=== PATIENT | male | born 1975 | race Hispanic/Latino ===

== ENCOUNTER 2017-03-10 21:02 | Emergency (ER) | payer SELFPAY | END 2017-03-10 21:35 | disposition left against medical advice (07) | LOC: ED 21:02 | DX: R10.9 Unspecified abdominal pain (principal); Z53.21 Procedure and treatment not carried out due to patient leaving prior to being seen by health care provider ==

== ENCOUNTER 2017-03-11 04:13 | Emergency (ER) | payer SELFPAY ==
[2017-03-11 05:25] LABS: Basophils % (Auto) 0.9 % (0.0-1.8); Eosinophils % (Auto) 0.9 % (0.0-4.3); Hematocrit 30.5 % (35.5-45.6); Hemoglobin 9.8 gm/dl (11.8-15.2); Mean Corpuscular HGB Conc 32 % (32-34); Mean Corpuscular Volume 80 fl (84-94); Platelet Count 571 K/mm3 (140-440); Red Blood Count 3.82 M/mm3 (3.65-5.03); Red Cell Distribution Width 15.6 % (13.2-15.2)
[2017-03-11 05:32] LABS: Mean Corpuscular Hemoglobin 26 pg (28-32)
[2017-03-11 05:48] LABS: Alanine Aminotransferase 14 units/L (7-56); Albumin/Globulin Ratio 1.3 %; Alkaline Phosphatase 63 units/L (35-129); Anion Gap 18 mmol/L; Blood Urea Nitrogen 6 mg/dL (9-20); Calcium 9.6 mg/dL (8.4-10.2); Carbon Dioxide 24 mmol/L (22-30); Chloride 99.8 mmol/L (98-107); Glucose 165 mg/dL (75-100); Lipase 25 units/L (13-60); Potassium 4.3 mmol/L (3.6-5.0); Sodium 137 mmol/L (137-145); Total Protein 7.1 g/dL (6.3-8.2)
[2017-03-11 06:00] LABS: Bacteria,Urine 1+ /HPF (Negative); Bilirubin,Urine NEG (Negative); Blood,Urine NEG (Negative); Ketones,Urine NEG (Negative); Leukocyte Esterase,Urine NEG (Negative); Mucus,Urine 3+ /HPF; Nitrite,Urine NEG (Negative); Protein,Urine <15 mg/dL mg/dL (Negative); RBC,Urine < 1.0 /HPF (0.0-6.0); Urobilinogen,Urine < 2.0 mg/dL (<2.0)
[2017-03-11 14:12] VITALS: BP 115/63
[2017-03-11] MEDS ORDERED: TORADOL IM ONE (15:30)
[2017-03-11] MEDS ORDERED: ZOFRAN ODT PO ONE (15:30)
--- NOTE | 2017-03-11 15:33 | Emergency Department Report ---
HPI - General Chief Complaint: Abdominal Pain Time Seen by Provider: 03/11/17 13:39 - HPI HPI: The patient is a 42-year-old male whom presents for evaluation of abdominal pain. The patient reports left upper quadrant abdominal pain for the past 2 days, constant since onset, cramping in quality, and associated with nausea and nonbilious, nonbloody emesis. He states he has not "thrown up" in the past 4 hours. The patient denies fever, chills, night sweats, chest pain, dyspnea, trauma to the abdomen or left flank, diarrhea, blood in the stool, dark tarry stool, dysuria, hematuria, flank pain, genital discharge, inability to pass flatus or defecate. ED Past Medical Hx - Past Medical History Previous Medical History?: Yes Hx Diabetes: Yes Additional medical history: Stomach ulcer - Surgical History Past Surgical History?: No - Social History Smoking Status: Current Every Day Smoker - Medications Home Medications: Home Medications Medication Instructions Recorded Confirmed Last Taken Type Famotidine [Pepcid] 20 mg PO BID #60 tablet 05/11/16 Unknown Rx Omeprazole Magnesium [PriLOSEC Otc] 20 mg PO QDAY #14 tablet. 03/11/17 Unknown Rx traMADol [Ultram 50 MG tab] 50 mg PO Q6HR PRN #14 tablet 03/11/17 Unknown Rx ED Review of Systems ROS: Stated complaint: ABDOMINAL PAIN Other details as noted in HPI Constitutional: denies: fever ENT: denies: throat or neck pain Respiratory: denies: cough, shortness of breath Cardiovascular: denies: chest pain Endocrine: denies unexplained weight loss or gain Gastrointestinal: reports abdominal pain, nausea Genitourinary: denies: dysuria Musculoskeletal: denies: leg swelling Skin: denies: rash Neurological: denies: headache Hematological/Lymphatic: denies: easy bleeding or easy bruising Psych: denies sadness or hopelessness Physical Exam - Physical Exam Vital Signs: Vital Signs 03/11/17 03/11/17 03/11/17 04:29 07:39 14:10 Temperature 99.0 F 98.9 F 99.6 F Pulse Rate 83 84 75 Respiratory 20 18 Rate Blood Pressure 116/72 Blood Pressure 129/81 115/63 [Left] O2 Sat by Pulse 100 100 Oximetry 03/11/17 14:12 Temperature Pulse Rate Respiratory 18 Rate Blood Pressure Blood Pressure [Left] O2 Sat by Pulse 99 Oximetry Physical Exam: General: well-nourished, well-developed, no acute distress Head: Normocephalic, atraumatic Eyes: normal sclera ENT: Mucous membranes are pink and moist Neck: trachea midline, neck supple, No neck stiffness, no cervical adenopathy Respiratory: Breath sounds equal bilaterally, no wheezing, rales, or rhonchi Cardio: S1 and S2 present, no murmurs, rubs, gallops, capillary refill is brisk Abdomen: Normoactive bowel sounds, soft abdomen, left upper quadrant tenderness to palpation present, no rigidity, no guarding or rebound tenderness Musc: No pitting edema Skin: No rash Neuro: no facial drooping, normal speech Psych: Normal affect ED Course Vital Signs 03/11/17 03/11/17 03/11/17 04:29 07:39 14:10 Temperature 99.0 F 98.9 F 99.6 F Pulse Rate 83 84 75 Respiratory 20 18 Rate Blood Pressure 116/72 Blood Pressure 129/81 115/63 [Left] O2 Sat by Pulse 100 100 Oximetry 03/11/17 14:12 Temperature Pulse Rate Respiratory 18 Rate Blood Pressure Blood Pressure [Left] O2 Sat by Pulse 99 Oximetry ED Medical Decision Making - Lab Data Result diagrams: 03/11/17 04:55 03/11/17 04:55 - Medical Decision Making The patient was seen and examined by myself. The patient is placed on a box office clerk and continuous pulse ox. On initial evaluation, the patient was found to be in no distress. Evaluation orders are placed. The patient is given IM dose of Toradol for his pain and a tablet of Zofran for his nausea. Lab results were non-concerning including WBC, hemoglobin, hematocrit, electrolytes, renal function, LFTs, lipase, and urinalysis. The patient was reevaluated and reported that their symptoms were markedly improved. The patient is stable for discharge with outpatient follow-up. The patient is given follow-up and return instructions. The patient expressed understanding and agreed with the plan. The patient is discharged in stable condition. Critical care attestation.: If time is entered above; I have spent that time in minutes in the direct care of this critically ill patient, excluding procedure time. ED Disposition Clinical Impression: Acute abdominal pain in left upper quadrant Disposition: DC-01 TO HOME OR SELFCARE Is pt being admited?: No Does the pt Need Aspirin: No Condition: Stable Instructions: Gastritis (ED), Diet for Ulcers and Gastritis (ED), Abdominal Pain (ED) Prescriptions: Omeprazole Magnesium [PriLOSEC Otc] 20 mg PO QDAY #14 tablet. traMADol [Ultram 50 MG tab] 50 mg PO Q6HR PRN #14 tablet PRN Reason: Pain Referrals: PRIMARY CARE, [Primary Care Provider] - 3-5 Days Time of Disposition: 15:30
== END 2017-03-11 16:15 | disposition home or self-care (01) ==
LOC: ED 04:13
DX: R10.12 Left upper quadrant pain (principal); E11.9 Type 2 diabetes mellitus without complications
CPT/HCPCS: 36415; 80053; 81001; 83690; 85025; 96372; 99284; J1885; Q0162

== ENCOUNTER 2017-07-07 15:36 | Emergency (ER) | payer SELFPAY | END 2017-07-07 15:37 | disposition left against medical advice (07) | LOC: ED 15:36 | DX: R11.10 Vomiting, unspecified (principal); Z53.21 Procedure and treatment not carried out due to patient leaving prior to being seen by health care provider ==

== ENCOUNTER 2017-09-03 07:37 | Inpatient (IN) | payer SELFPAY ==
[2017-09-03] MEDS ORDERED: NACL 0.9% 1000 ML 1,000 ML IV ONE (07:42)
[2017-09-03 08:16] LABS: Basophils % (Auto) 0.8 % (0.0-1.8); Eosinophils % (Auto) 0.3 % (0.0-4.3); Hematocrit 37.8 % (35.5-45.6); Hemoglobin 11.6 gm/dl (11.8-15.2); Mean Corpuscular HGB Conc 31 % (32-34); Platelet Count 503 K/mm3 (140-440); Red Blood Count 5.65 M/mm3 (3.65-5.03); Red Cell Distribution Width 19.1 % (13.2-15.2); White Blood Count 16.6 K/mm3 (4.5-11.0)
[2017-09-03 08:21] LABS: Mean Corpuscular Hemoglobin 21 pg (28-32); Mean Corpuscular Volume 67 fl (84-94)
[2017-09-03 08:26] LABS: Albumin 4.2 g/dL (3.9-5); Albumin/Globulin Ratio 1.3 %; Alkaline Phosphatase 72 units/L (35-129); BUN/Creatinine Ratio 23; Blood Urea Nitrogen 16 mg/dL (9-20); Calcium 10.9 mg/dL (8.4-10.2); Carbon Dioxide 29 mmol/L (22-30); Chloride 99.1 mmol/L (98-107); Glucose 169 mg/dL (75-100); INR 0.92 (0.87-1.13); Lipase 29 units/L (13-60); Sodium 142 mmol/L (137-145); Total Protein 7.5 g/dL (6.3-8.2)
[2017-09-03 09:53] LABS: Alanine Aminotransferase 20 units/L (7-56)
[2017-09-03 09:54] LABS: Anion Gap 18 mmol/L; Potassium 4.5 mmol/L (3.6-5.0)
[2017-09-03] MEDS ORDERED: ZOFRAN IV ONE (09:54)
--- NOTE | 2017-09-03 10:25 | Emergency Department Report ---
HPI - General Chief Complaint: GI Bleed Time Seen by Provider: 09/03/17 09:51 - HPI HPI: The patient is a 42-year-old male whom presents for evaluation of abdominal pain and vomiting. The patient reports abdominal pain and vomiting of coffee ground emesis since 2 AM, aproximately 6 hours prior to my evaluation. He states that his abdominal pain has been 10/10 in severity, cramping and burning in quality, exacerbated with retching, and constant since onset. The patient denies fever, chills, night sweats, diarrhea, blood in the stool, dark tarry stool, dysuria, hematuria, flank pain, genital discharge, inability to pass flatus. ED Past Medical Hx - Past Medical History Previous Medical History?: Yes Hx Diabetes: Yes Additional medical history: Stomach ulcer - Surgical History Past Surgical History?: No - Social History Smoking Status: Current Every Day Smoker Substance Use Type: None - Medications Home Medications: Home Medications Medication Instructions Recorded Confirmed Last Taken Type Famotidine [Pepcid] 20 mg PO BID #60 tablet 05/11/16 Unknown Rx Omeprazole Magnesium [PriLOSEC Otc] 20 mg PO QDAY #14 tablet. 03/11/17 Unknown Rx traMADol [Ultram 50 MG tab] 50 mg PO Q6HR PRN #14 tablet 03/11/17 Unknown Rx ED Review of Systems ROS: Stated complaint: VOMITING BLOOD Other details as noted in HPI Constitutional: denies: fever ENT: denies: throat or neck pain Respiratory: denies: cough, shortness of breath Cardiovascular: denies: chest pain Endocrine: denies unexplained weight loss or gain Gastrointestinal: reports abdominal pain, nausea, vomiting Genitourinary: denies: dysuria Musculoskeletal: denies: leg swelling Skin: denies: rash Neurological: denies: headache Hematological/Lymphatic: denies: easy bleeding or easy bruising Psych: denies sadness or hopelessness Physical Exam - Physical Exam Vital Signs: Vital Signs 09/03/17 09/03/17 08:42 08:48 Temperature 98.6 F Blood Pressure 119/85 Physical Exam: General: well-nourished, well-developed, no acute distress Head: Normocephalic, atraumatic Eyes: normal sclera ENT: Mucous membranes are pale and dry Neck: No neck stiffness, no cervical adenopathy Respiratory: Breath sounds equal bilaterally, no wheezing, rales, or rhonchi Cardio: S1 and S2 present, no murmurs, rubs, gallops, capillary refill is delayed Abdomen: Normoactive bowel sounds, soft abdomen, no rigidity, no guarding or rebound tenderness Chest WALL/Back: No tenderness to palpation of the chest wall, no CVA tenderness with percussion Musc: No pitting edema Skin: No rash Neuro: no facial drooping, normal speech Psych: Normal affect ED Course Vital Signs 09/03/17 09/03/17 08:42 08:48 Temperature 98.6 F Blood Pressure 119/85 ED Medical Decision Making - Lab Data Result diagrams: 09/03/17 07:49 09/03/17 07:49 - Medical Decision Making The patient was seen and examined by myself. The patient is placed on a domestic maid and continuous pulse ox. On initial evaluation, the patient was found to be in no distress. The patient dyspnea is one episode of coffee- ground emesis in the emergency department. Evaluation orders were placed. The patient is given multiple doses of IV pain medicine. The patient is given IV Zofran for for treatment of nausea. The patient is given IV Protonix for txt of upper gi bleed. Lab results revealed leukocytosis, WBC 16, and otherwise labs are grossly not concerning including normal hemoglobin, hematocrit, platelets, and coags. CT scan abdomen and pelvis reveals findings consistent with likely duodenitis. The patient is given IV Levaquin and Flagyl for treatment of duodenitis. The on-call hospitalist service was contacted. They agreed to admit the patient for further treatment and close monitoring. The ED admit order was placed. The patient was admitted in guarded condition. Critical care attestation.: If time is entered above; I have spent that time in minutes in the direct care of this critically ill patient, excluding procedure time. ED Disposition Clinical Impression: Duodenitis with bleeding, Acute epigastric pain, Coffee ground emesis, Dehydration Disposition: OP ADMIT IP TO THIS HOSP Is pt being admited?: Yes Does the pt Need Aspirin: Yes Condition: Serious Referrals: PRIMARY CARE, [Primary Care Provider] - 3-5 Days Forms: Accompanied Note Time of Disposition: 15:37
[2017-09-03] MEDS ORDERED: PROTONIX IV ONE (11:00)
[2017-09-03] MEDS ORDERED: MORPHINE IV ONE ×3 (11:12→15:36)
--- NOTE | 2017-09-03 14:07 | Cat Scan Report ---
CT ABDOMEN PELVIS WITH CONTRAST: HISTORY: abdominal pain. COMPARISON: none. TECHNIQUE: Helical CT in 1.25mm intervals following IV contrast. Sagittal and coronal reconstructions. FINDINGS: Lung bases: normal. Liver: normal. Biliary system: normal. Pancreas: normal. Spleen: normal. Kidneys/ureters/bladder: normal. Adrenal glands: normal. Aorta: normal. Intestines: The stomach is moderately distended with fluid. No gastric wall thickening. There is however moderate circumferential thickening and irregularity of the descending duodenum. The remaining small bowel loops and colon are within normal limits. Appendix: Not confidently identified, correlate with surgical history. Pelvic viscera: normal. Musculoskeletal: normal. IMPRESSION: Abnormal proximal duodenum. This probably represents duodenitis or peptic disease. A neoplastic process is thought less likely but cannot be entirely excluded. Consider consultation with gastroenterology
[2017-09-03] MEDS ORDERED: LEVAQUIN 500MG/100ML 500 MG/100 ML BAG IV ONE (15:36)
[2017-09-03] MEDS ORDERED: PROTONIX 80 MG in NACL 0.9% 100 ML IV SCH ×2 (16:00→23:00)
[2017-09-03] MEDS ORDERED: FLAGYL 500 MG/100 ML 500 MG/100 ML BAG IV SCH (16:00)
[2017-09-03] MEDS ORDERED: MILK OF MAGNESIA PO PRN (22:49)
[2017-09-03] MEDS ORDERED: TYLENOL PO PRN (22:49)
[2017-09-03] MEDS ORDERED: DULCOLAX PR PRN (22:49)
[2017-09-03] MEDS ORDERED: MORPHINE IV PRN (22:49)
[2017-09-03] MEDS ORDERED: ZOFRAN IV PRN (22:49)
--- NOTE | 2017-09-03 22:49 | History and Physical Report ---
History of Present Illness Date of examination: 09/03/17 Date of admission: 09/03/17 15:38 Chief complaint: CC Coffee Ground emesis since 2am History of present illness: MANDEEP The patient is a 42-year-old male whom presents for evaluation of abdominal pain and vomiting. The patient reports abdominal pain and vomiting of coffee ground emesis since 2 AM. He states that his abdominal pain has been 10/10 in severity, cramping and burning in quality, exacerbated with retching, and constant since onset. The patient denies fever, chills, night sweats, diarrhea, blood in the stool, dark tarry stool, dysuria, hematuria, flank pain, genital discharge, inability to pass flatus. Past Medical History Previous Medical History?: Yes Hx Diabetes: Yes Additional medical history: Stomach ulcer Surgical History Past Surgical History?: No Social History Smoking Status: Current Every Day Smoker Substance Use Type: None -Medications Home Medications: Home Medications Medication Instructions Recorded Confirmed Last Taken Type Famotidine [Pepcid] 20 mg PO BID #60 tablet 05/11/16 Unknown Rx Omeprazole Magnesium [PriLOSEC Otc] 20 mg PO QDAY #14 tablet. 03/11/17 Unknown Rx traMADol [Ultram 50 MG tab] 50 mg PO Q6HR PRN #14 tablet 03/11/17 Unknown Rx Review of Systems Stated complaint: VOMITING BLOOD Other details as noted in HPI Constitutional: denies: fever ENT: denies: throat or neck pain Respiratory: denies: cough, shortness of breath Cardiovascular: denies: chest pain Endocrine: denies unexplained weight loss or gain Gastrointestinal: reports abdominal pain, nausea, vomiting Genitourinary: denies: dysuria Musculoskeletal: denies: leg swelling Skin: denies: rash Neurological: denies: headache Hematological/Lymphatic: denies: easy bleeding or easy bruising Psych: denies sadness or hopelessness Medications and Allergies Allergies Allergy/AdvReac Type Severity Reaction Status Date / Time No Known Allergies Allergy Unverified 05/11/16 05:47 Home Medications Medication Instructions Recorded Confirmed Last Taken Type No Known Home Medications [No 09/03/17 09/03/17 Unknown History Reported Home Medications] Active Meds: Active Medications Metronidazole (Flagyl 500 Mg/100 Ml) 500 mg in 100 mls @ 200 mls/hr IV ONCE CULLEN Last Admin: 09/03/17 18:03 Dose: 200 mls/hr Pantoprazole Sodium 80 mg/ (Sodium Chloride) 100 mls @ 10 mls/hr IV DIRECT CULLEN PRN Reason: 8 MG/HR Exam - Constitutional Vitals: Temp Pulse Resp BP Pulse Ox 99.1 F 119 H 16 117/79 95 09/03/17 19:43 09/03/17 19:43 09/03/17 19:43 09/03/17 19:43 09/03/17 19:43 General appearance: Present: no acute distress, well-nourished - EENT Eyes: Present: PERRL ENT: hearing intact, clear oral mucosa - Neck Neck: Present: supple, normal ROM - Respiratory Respiratory effort: normal Respiratory: bilateral: CTA - Cardiovascular Heart Sounds: Present: S1 & S2. Absent: rub, click - Extremities Extremities: pulses symmetrical, No edema Peripheral Pulses: within normal limits - Abdominal General gastrointestinal: Present: soft, tender (in epigastric region), non- distended, normal bowel sounds Male genitourinary: Present: normal - Integumentary Integumentary: Present: clear, warm, dry - Musculoskeletal Musculoskeletal: gait normal, strength equal bilaterally - Psychiatric Psychiatric: appropriate mood/affect, intact judgment & insight - Neurologic Neurologic: CNII-XII intact, moves all extremities Results - Labs CBC & Chem 7: 09/04/17 06:03 09/04/17 06:03 Labs: Laboratory Last Values WBC 16.6 K/mm3 (4.5-11.0) H 09/03/17 07:49 RBC 5.65 M/mm3 (3.65-5.03) H 09/03/17 07:49 Hgb 11.6 gm/dl (11.8-15.2) L 09/03/17 07:49 Hct 37.8 % (35.5-45.6) 09/03/17 07:49 MCV 67 fl (84-94) L 09/03/17 07:49 MCH 21 pg (28-32) L 09/03/17 07:49 MCHC 31 % (32-34) L 09/03/17 07:49 RDW 19.1 % (13.2-15.2) H 09/03/17 07:49 Plt Count 503 K/mm3 (140-440) H 09/03/17 07:49 Lymph % (Auto) 11.0 % (13.4-35.0) L 09/03/17 07:49 Gove % (Auto) 4.8 % (0.0-7.3) 09/03/17 07:49 Eos % (Auto) 0.3 % (0.0-4.3) 09/03/17 07:49 Baso % (Auto) 0.8 % (0.0-1.8) 09/03/17 07:49 Lymph # 1.8 K/mm3 (1.2-5.4) 09/03/17 07:49 Gove # 0.8 K/mm3 (0.0-0.8) 09/03/17 07:49 Eos # 0.1 K/mm3 (0.0-0.4) 09/03/17 07:49 Baso # 0.1 K/mm3 (0.0-0.1) 09/03/17 07:49 Seg Neutrophils % 83.1 % (40.0-70.0) H 09/03/17 07:49 Seg Neutrophils # 13.8 K/mm3 (1.8-7.7) H 09/03/17 07:49 PT 12.8 Sec. (12.2-14.9) 09/03/17 07:49 INR 0.92 (0.87-1.13) 09/03/17 07:49 APTT 27.0 Sec. (24.2-36.6) 09/03/17 07:49 Sodium 142 mmol/L (137-145) 09/03/17 07:49 Potassium 4.5 mmol/L (3.6-5.0) 09/03/17 07:49 Chloride 99.1 mmol/L (98-107) 09/03/17 07:49 Carbon Dioxide 29 mmol/L (22-30) 09/03/17 07:49 Anion Gap 18 mmol/L 09/03/17 07:49 BUN 16 mg/dL (9-20) 09/03/17 07:49 Creatinine 0.7 mg/dL (0.8-1.5) L 09/03/17 07:49 Estimated GFR > 60 ml/min 09/03/17 07:49 BUN/Creatinine Ratio 23 % 09/03/17 07:49 Glucose 169 mg/dL (75-100) H 09/03/17 07:49 Calcium 10.9 mg/dL (8.4-10.2) H 09/03/17 07:49 Total Bilirubin 0.40 mg/dL (0.1-1.2) 09/03/17 07:49 AST 31 units/L (5-40) 09/03/17 07:49 ALT 20 units/L (7-56) 09/03/17 07:49 Alkaline Phosphatase 72 units/L (35-129) 09/03/17 07:49 Total Protein 7.5 g/dL (6.3-8.2) 09/03/17 07:49 Albumin 4.2 g/dL (3.9-5) 09/03/17 07:49 Albumin/Globulin Ratio 1.3 % 09/03/17 07:49 Lipase 29 units/L (13-60) 09/03/17 07:49 Blood Type O POSITIVE 09/03/17 07:49 Antibody Screen Negative 09/03/17 07:49 Short CBC 09/03/17 09/04/17 Range/Units 23:21 06:03 WBC 15.2 H (4.5-11.0) K/mm3 Hgb 10.8 L 10.6 L (11.8-15.2) gm/dl Hct 35.9 35.6 (35.5-45.6) % Plt Count 481 H (140-440) K/mm3 BMP 09/03/17 09/04/17 07:49 06:03 Sodium 137 Potassium 4.5 4.5 Chloride 101.2 Carbon Dioxide 26 BUN 16 Creatinine 0.7 L Glucose 122 H Calcium 9.2 D Liver Function 09/03/17 09/04/17 Range/Units 07:49 06:03 Total Bilirubin 0.60 (0.1-1.2) mg/dL AST 31 11 (5-40) units/L ALT 20 12 (7-56) units/L Alkaline Phosphatase 63 (35-129) units/L Albumin 3.7 L (3.9-5) g/dL - Imaging and Cardiology EKG: report reviewed CT scan - abdomen: report reviewed (Thickening of duodenum) Assessment and Plan Advance Directives: Yes (Full code) VTE prophylaxis?: Mechanical Contraindication Mechanical VTE Prophylaxis: Contraindicated Plan of care discussed with patient/family: Yes - Patient Problems (1) GI (gastrointestinal hemorrhage) Current Visit: Yes Status: Acute Qualifiers: GI bleed type/associated pathology: unspecified peptic ulcer Qualified Code (s): K27.4 - Chronic or unspecified peptic ulcer, site unspecified, with hemorrhage Plan to address problem: IV Protonix drip and IV fluids.Check H/H q8h GI consult (2) T2DM (type 2 diabetes mellitus) Current Visit: Yes Status: Chronic Qualifiers: Diabetes mellitus complication status: without complication Diabetes mellitus intermediate insulin use: without intermediate use Qualified Code(s): E11.9 - Type 2 diabetes mellitus without complications Plan to address problem: Coverage for now (3) Malnutrition Current Visit: Yes Status: Chronic Qualifiers: Protein-calorie malnutrition severity: mild Plan to address problem: Dietary consult (4) Blood loss anemia Current Visit: Yes Status: Acute Plan to address problem: Monitor h/h.Transfuse if necessary (5) DVT prophylaxis Current Visit: Yes Status: Acute Plan to address problem: on scd's
[2017-09-03] MEDS ORDERED: D5NS 1,000 ML IV SCH (23:00)
[2017-09-03 23:51] LABS: Hematocrit 35.9 % (35.5-45.6); Hemoglobin 10.8 gm/dl (11.8-15.2)
[2017-09-04 06:41] LABS: Basophils % (Auto) 0.7 % (0.0-1.8); Eosinophils % (Auto) 0.6 % (0.0-4.3); Mean Corpuscular HGB Conc 30 % (32-34); Platelet Count 481 K/mm3 (140-440); Red Blood Count 5.22 M/mm3 (3.65-5.03); Red Cell Distribution Width 19.6 % (13.2-15.2); White Blood Count 15.2 K/mm3 (4.5-11.0)
[2017-09-04 06:42] LABS: Hemoglobin 10.6 gm/dl (11.8-15.2)
[2017-09-04 06:43] LABS: Alanine Aminotransferase 12 units/L (7-56); Albumin 3.7 g/dL (3.9-5); Albumin/Globulin Ratio 1.2 %; Alkaline Phosphatase 63 units/L (35-129); Anion Gap 14 mmol/L; BUN/Creatinine Ratio 23; Blood Urea Nitrogen 16 mg/dL (9-20); Calcium 9.2 mg/dL (8.4-10.2); Carbon Dioxide 26 mmol/L (22-30); Chloride 101.2 mmol/L (98-107); Glucose 122 mg/dL (75-100); Hematocrit 35.6 % (35.5-45.6); Mean Corpuscular Hemoglobin 20 pg (28-32); Mean Corpuscular Volume 68 fl (84-94); Potassium 4.5 mmol/L (3.6-5.0); Sodium 137 mmol/L (137-145); Total Protein 6.7 g/dL (6.3-8.2)
--- NOTE | 2017-09-04 08:59 | Progress Note ---
Assessment and Plan Assessment and plan: --Acute upper GI bleeding; coffee-ground Emesis, possible peptic ulcer disease, nothing by mouth status IV fluids, avoid NSAIDs, GI evaluation for possible EGD --Acute blood loss anemia; mild drop in H&H, closely monitor --Acute duodenitis/duodenal ulcer; supportive care, IV fluids, IV Protonix, avoid NSAIDs GI evaluation, possible EGD and biopsy --Leukocytosis; closely monitor, follow cultures --Hyperglycemia; not on any medications, Accu-Chek sliding scale coverage and ADA diet, hemoglobin A1c --Hypercalcemia; corrected with IV fluids closely monitor --DVT prophylaxis Lovenox Follow GI evaluation and recommendations, possible discharge in 1 to 2 days if stable Plan of care discussed with patient and his nurse History Interval history: Patient seen and examined in his room this morning medical records reviewed Admitted with abdominal pain, possible duodenitis/duodenal ulcer Awaiting GI evaluation for possible EGD Patient feels hungry and wants to eat food Continues to have epigastric pain Hospitalist Physical - Constitutional Vitals: Temp Pulse Resp BP Pulse Ox 98.5 F 103 H 16 109/60 96 09/04/17 06:50 09/04/17 06:50 09/04/17 06:50 09/04/17 06:50 09/04/17 06:50 General appearance: Present: no acute distress, well-nourished, obese - EENT Eyes: Present: PERRL, EOM intact - Neck Neck: Present: supple, normal ROM - Respiratory Respiratory effort: normal Respiratory: bilateral: diminished, negative: rales, rhonchi, wheezing - Cardiovascular Rhythm: regular Heart Sounds: Present: S1 & S2 - Extremities Extremities: no ischemia, No edema Peripheral Pulses: within normal limits - Abdominal General gastrointestinal: soft, non-tender, non-distended, normal bowel sounds - Integumentary Integumentary: Present: clear, warm - Psychiatric Psychiatric: appropriate mood/affect, cooperative - Neurologic Neurologic: CNII-XII intact, moves all extremities Results - Labs CBC & Chem 7: 09/04/17 06:03 09/04/17 06:03 Labs: Laboratory Last Values WBC 15.2 K/mm3 (4.5-11.0) H 09/04/17 06:03 RBC 5.22 M/mm3 (3.65-5.03) H 09/04/17 06:03 Hgb 10.6 gm/dl (11.8-15.2) L 09/04/17 06:03 Hct 35.6 % (35.5-45.6) 09/04/17 06:03 MCV 68 fl (84-94) L 09/04/17 06:03 MCH 20 pg (28-32) L 09/04/17 06:03 MCHC 30 % (32-34) L 09/04/17 06:03 RDW 19.6 % (13.2-15.2) H 09/04/17 06:03 Plt Count 481 K/mm3 (140-440) H 09/04/17 06:03 Lymph % (Auto) 15.3 % (13.4-35.0) 09/04/17 06:03 [place]igs % (Auto) 6.9 % (0.0-7.3) 09/04/17 06:03 Eos % (Auto) 0.6 % (0.0-4.3) 09/04/17 06:03 Baso % (Auto) 0.7 % (0.0-1.8) 09/04/17 06:03 Lymph # 2.3 K/mm3 (1.2-5.4) 09/04/17 06:03 Meigs # 1.0 K/mm3 (0.0-0.8) H 09/04/17 06:03 Eos # 0.1 K/mm3 (0.0-0.4) 09/04/17 06:03 Baso # 0.1 K/mm3 (0.0-0.1) 09/04/17 06:03 Seg Neutrophils % 76.5 % (40.0-70.0) H 09/04/17 06:03 Seg Neutrophils # 11.6 K/mm3 (1.8-7.7) H 09/04/17 06:03 PT 12.8 Sec. (12.2-14.9) 09/03/17 07:49 INR 0.92 (0.87-1.13) 09/03/17 07:49 APTT 27.0 Sec. (24.2-36.6) 09/03/17 07:49 Sodium 137 mmol/L (137-145) 09/04/17 06:03 Potassium 4.5 mmol/L (3.6-5.0) 09/04/17 06:03 Chloride 101.2 mmol/L (98-107) 09/04/17 06:03 Carbon Dioxide 26 mmol/L (22-30) 09/04/17 06:03 Anion Gap 14 mmol/L 09/04/17 06:03 BUN 16 mg/dL (9-20) 09/04/17 06:03 Creatinine 0.7 mg/dL (0.8-1.5) L 09/04/17 06:03 Estimated GFR > 60 ml/min 09/04/17 06:03 BUN/Creatinine Ratio 23 % 09/04/17 06:03 Glucose 122 mg/dL (75-100) H 09/04/17 06:03 Calcium 9.2 mg/dL (8.4-10.2) D 09/04/17 06:03 Total Bilirubin 0.60 mg/dL (0.1-1.2) 09/04/17 06:03 AST 11 units/L (5-40) 09/04/17 06:03 ALT 12 units/L (7-56) 09/04/17 06:03 Alkaline Phosphatase 63 units/L (35-129) 09/04/17 06:03 Total Protein 6.7 g/dL (6.3-8.2) 09/04/17 06:03 Albumin 3.7 g/dL (3.9-5) L 09/04/17 06:03 Albumin/Globulin Ratio 1.2 % 09/04/17 06:03 Lipase 29 units/L (13-60) 09/03/17 07:49 Blood Type O POSITIVE 09/03/17 07:49 Antibody Screen Negative 09/03/17 07:49
--- NOTE | 2017-09-04 10:20 | Gastroenterology Consultation ---
History of Present Illness - Reason for Consult Consult date: 09/04/[address] Abdomen Requesting physician: BROOKLYN IRAHETA - History of Present Illness The patient is a 42 yo male admitted with duodenitis/possible PUD and coffee ground emesis. He has a hx of DU dx at [facility] earlier this year (no records, and patient is somewhat of a poor historian). He takes Rolaids/TUMS "about 6-7 per day" but no other antiacids and denies NSAIDs. He does, however, abuse cigarettes and crystal meth. He has not had melena, and there has been no N/V since admit. He has no CP or SOB, and his abdominal pain is much improved on IV protonix (hungry, wants to eat). He has had no F/C, and no prior abdominal surgery. Past History Past Medical History: other (Duodenal ulcer) Past Surgical History: No surgical history Social history: smoking, other (Crystal Meth (snorted; denies IV)) Family history: no significant family history Medications and Allergies Allergies Allergy/AdvReac Type Severity Reaction Status Date / Time No Known Allergies Allergy Unverified 05/11/16 05:47 Home Medications Medication Instructions Recorded Confirmed Last Taken Type No Known Home Medications [No 09/03/17 09/03/17 Unknown History Reported Home Medications] Active Meds: Active Medications Acetaminophen (Tylenol) 650 mg PO Q4H PRN PRN Reason: Pain MILD(1-3)/Fever >100.5/DIANE Bisacodyl (Dulcolax) 10 mg RI QDAY PRN PRN Reason: Constipation unrelieved by MOM Metronidazole (Flagyl 500 Mg/100 Ml) 500 mg in 100 mls @ 200 mls/hr IV ONCE CULLEN Last Admin: 09/03/17 18:03 Dose: 200 mls/hr Pantoprazole Sodium 80 mg/ (Sodium Chloride) 100 mls @ 10 mls/hr IV DIRECT CULLEN PRN Reason: 8 MG/HR Last Admin: 09/04/17 02:26 Dose: 8 mg/hr, 10 mls/hr Dextrose/Sodium Chloride (D5ns) 1,000 mls @ 100 mls/hr IV DIRECT CULLEN Last Admin: 09/04/17 02:24 Dose: 100 mls/hr Insulin Aspart (Novolog) 0 units SUB-Q Q6HR CULLEN PRN Reason: Protocol Magnesium Hydroxide (Milk Of Magnesia) 30 ml PO Q4H PRN PRN Reason: Constipation Morphine Sulfate (Morphine) 2 mg IV Q4H PRN PRN Reason: Pain, Moderate (4-6) Ondansetron HCl (Zofran) 4 mg IV Q8H PRN PRN Reason: N/V unrelieved by Reglan Review of Systems - Review of Systems All systems: negative (as noted in the HPI.) Exam - Constitutional Vital Signs: Temp Pulse Resp BP Pulse Ox 98.4 F 98 H 18 95/58 97 09/04/17 07:44 09/04/17 07:44 09/04/17 07:44 09/04/17 07:44 09/04/17 07:44 General appearance: no acute distress - EENT Eyes: PERRL, EOM intact ENT: hearing intact, poor dentition - Neck Neck: supple, normal ROM - Respiratory Respiratory effort: normal Respiratory: bilateral: CTA - Cardiovascular Rhythm: regular Heart Sounds: Present: S1 & S2 Extremities: no ischemia, No edema - Gastrointestinal General gastrointestinal: Present: soft, non-tender, non-distended - Integumentary Integumentary: Present: clear, warm, dry - Neurologic Neurological: alert and oriented x3 - Labs CBC & Chem 7: 09/04/17 06:03 09/04/17 06:03 Lab Results: Laboratory Results - last 24 hr 09/03/17 09/04/17 09/04/17 23:21 06:03 06:03 WBC 15.2 H RBC 5.22 H Hgb 10.8 L 10.6 L Hct 35.9 35.6 MCV 68 L MCH 20 L MCHC 30 L RDW 19.6 H Plt Count 481 H Lymph % (Auto) 15.3 [place] % (Auto) 6.9 Eos % (Auto) 0.6 Baso % (Auto) 0.7 Lymph # 2.3 [place] # 1.0 H Eos # 0.1 Baso # 0.1 Seg Neutrophils % 76.5 H Seg Neutrophils # 11.6 H Sodium 137 Potassium 4.5 Chloride 101.2 Carbon Dioxide 26 Anion Gap 14 BUN 16 Creatinine 0.7 L Estimated GFR > 60 BUN/Creatinine Ratio 23 Glucose 122 H Calcium 9.2 D Total Bilirubin 0.60 AST 11 ALT 12 Alkaline Phosphatase 63 Total Protein 6.7 Albumin 3.7 L Albumin/Globulin Ratio 1.2 Assessment and Plan - Patient Problems (1) Abnormal CT scan, gastrointestinal tract Current Visit: Yes Status: Acute Plan to address problem: - Given hx, I strongly favor DU rather than mass (see CT report differential). - Will get EGD, and continue protonix. - Avoid NSAIDs. - Patient strongly encouraged to d/c cigarettes and substance abuse.
[2017-09-04] MEDS ORDERED: WATER FOR IRRIG STERILE IR ONE (11:02)
[2017-09-04] MEDS ORDERED: NACL 0.9% 1000 ML 1,000 ML ONE (11:02)
[2017-09-04] MEDS ORDERED: NOVOLOG SUB-Q SCH (12:00)
[2017-09-04] MEDS ORDERED: DIPRIVAN 10 MG/ML IV ONE ×3 (12:12)
[2017-09-04] MEDS ORDERED: XYLOCAINE 2% INFILTRATI ONE (12:13)
[2017-09-04] MEDS ORDERED: VERSED ONE (12:13)
--- NOTE | 2017-09-04 12:28 | Post Operative Note ---
Pre-op diagnosis: Abnormal CT Post-op diagnosis: other (DU, gastritis/esophagitis) Findings: 1. 2cm flat, white-based DU in the bulb with significant distortion of anatomy from active and prior PUD 2. Moderate gastritis in the antrum and body; cold bx for H pylori 3. LA Grade D erosive esophagitis in the lower half, likely from chronic vomiting/substance abuse Procedure: EGD with cold bx Anesthesia: MAC Surgeon: LORETTA KRAFT Estimated blood loss: minimal Pathology: list (1. Gastric antrum) Specimen disposition: to lab Condition: stable Disposition: floor (Recs: 1. Mechanical soft diet (poor dentition). 2. MVI and protonix PO daily. 3. Hct is stable, and ulcer, though large, would be considered low-risk to rebleed; OK to d/c when taking PO and stable vitals. 4. D/c all NSAIDs and tobacco/drugs. 5. Repeat EGD in 4-6 weeks given severity of DU and esophagitis for 2nd look and to rebiopsy.)
--- NOTE | 2017-09-04 12:55 | Operative Report ---
PROCEDURE PERFORMED: Esophagogastroduodenoscopy with cold biopsy. PREOPERATIVE DIAGNOSES: Abnormal CT scan with likely duodenal ulcer. POSTOPERATIVE DIAGNOSES: Severe duodenal ulcer, gastritis, esophagitis. ENDOSCOPIST: Prem Thomson M.D. INSTRUMENT: Olympus video endoscope. MEDICATIONS: MAC anesthesia by [facility]. COMPLICATIONS: No apparent complications. ESTIMATED BLOOD LOSS: Minimal. SPECIMENS: Gastric antrum. IMPLANTS: None. UKE DRIVER: None. CONDITION AT COMPLETION: Stable. TECHNIQUE: The patient was informed of the risks and benefits of the procedure. He signed the informed consent to proceed. He was placed in left lateral decubitus position. The above sedative medications were given. His vital signs remained stable throughout the procedure. The instrument was advanced from the mouth to the second portion of the duodenum under direct visualization. At that point, the bowel was insufflated and the endoscope was slowly withdrawn. FINDINGS: 1. No blood and no blood clots in the upper GI tract. 2. Severely distorted anatomy of the duodenal bulb consistent with active and prior peptic ulcer disease. 3. A 2 cm flat, white-based duodenal ulcer was noted in the bulb; there was no obvious visible vessel, but the anatomy was distorted. 4. Moderate gastritis with erythema and erosions in the antrum and the body of the stomach; cold biopsies taken for H. pylori. 5. LA grade D erosive esophagitis in the entire lower half that was circumferential; this is likely from chronic nausea, vomiting and active substance abuse. RECOMMENDATIONS: 1. Mechanical soft diet due to poor dentition. 2. Multivitamin and Protonix oral daily. 3. The hematocrit is stable and the duodenal ulcer, though large, would be considered low risk to rebleed; it is okay to discharge the patient when he is taking oral food and medications and his vital signs are stable. 4. Discontinue all nonsteroidals and the patient should discontinue tobacco as well as substance abuse. 5. Repeat upper endoscopy in 4-6 weeks given the severity of his duodenal ulcer and esophagitis for a second look and to rebiopsy. JOB# [id number] SUDARSHAN/NTS
[2017-09-04] MEDS: PROTONIX PO SCH ×2 (14:00→14:48)
[2017-09-04] MEDS: THERAGRAN-M Tab PO SCH ×2 (14:01→14:48)
--- NOTE | 2017-09-04 14:43 | Anesthesia Consultation ---
Anesthesia Consult and Med Hx Date of service: 09/04/17 - Airway Anesthetic Teeth Evaluation: Poor ROM Head & Neck: Adequate Mental/Hyoid Distance: Adequate Mallampati Class: Class II Intubation Access Assessment: Probably Good - Pulmonary Exam CTA: Yes - Cardiac Exam Cardiac Exam: RRR - Pre-Operative Health Status ASA Pre-Surgery Classification: ASA3 Proposed Anesthetic Plan: MAC - Pulmonary Hx Smoking: Yes - Gastrointestinal Hx Ulcer: Yes - Endocrine Hx Non-Insulin Dependent Diabetes: Yes - Hematic Hx Anemia: Yes - Other Systems Hx Substance Use: Yes (METH) Hx Cancer: No Hx Obesity: Yes
--- NOTE | 2017-09-04 14:45 | Anesthesia Day of Surgery ---
Anesthesia Day of Surgery - Day of Surgery Patient Examined: Yes Patient H&P Reviewed: Yes Patient is NPO: Yes
--- NOTE | 2017-09-04 14:45 | Post Anesthesia Evaluation ---
- Post Anesthesia Evaluation Patient Participated: Yes Airway Patent: Yes Stable Respiratory Function: Yes Nausea/Vomiting: No Temp > 96.8F: Yes Pain Manageable: Yes Adequeate Hydration: Yes Anesthesia Complications: No Block Receding Appropriately: Not Applicable Patient on Ventilator: No
--- NOTE | 2017-09-04 15:31 | Discharge Summary ---
Providers - Providers Date of Admission: 09/03/17 15:38 Date of discharge: 09/04/17 Attending physician: VENITA LIRIANO 09/03/17 22:49 Consult to Physician [CONS] Routine Consulting Provider: BERT FOSTER Reason For Exam: GI bleed Place consult to:: Dr. Kraft Notified:: Y Phone number called:: [phone] Was contact made?: Yes If yes, spoke with:: Diana Time called:: 01:17 Comment:: Will check on Pt 09/04/17 09:57 Consult to Dietitian/Nutrition [CONS] Routine Physician Instructions: Reason For Exam: Reason for Consult: Nutrition Recommendations Reason for Consult: Malnutrition Primary care physician: [employer] Hospitalization Reason for admission: coffee-ground emesis Condition: Serious Pertinent studies: EGD with cold biopsy 1. 2cm flat, white-based DU in the bulb with significant distortion of anatomy from active and prior PUD 2. Moderate gastritis in the antrum and body; cold bx for H pylori 3. LA Grade D erosive esophagitis in the lower half, likely from chronic vomiting/substance abuse adv: MVI and protonix PO daily, Hct is stable, and ulcer, though large, would be considered low-risk to rebleed; OK to d/c when taking PO and stable , Hospital course: 42-year-old obese male patient with significant past medical history of diabetes mellitus diet controlled stomach ulcer is not on any medications ongoing tobacco use is admitted through emergency room with coffee-ground emesis of one day duration Patient was initially evaluated and admitted to the hospital, symptomatically managed, H&H closely monitored, evaluated by GI, had EGD findings are as mentioned above Patient strongly advised to quit tobacco recreational drug use as well as NSAIDs Patient was also asked to follow with GI for biopsy report as well as repeat EGD after 4-6 weeks Today he is comfortable no new complaints, no new episodes of bleeding, vital signs are stable Tolerated mechanical soft diet,physical examination done by me prior to discharge is unremarkable as detailed below . cleared by GI for discharge and follow up with them in the office, patient is hemodynamically and clinically stable at discharge Smoking cessation counseling done advised to quit nicotine patch Risks, consequences and complications of smoking were discussed with the patient, advised nicotine patch or other medication that would assist him to quit smoking Patient verbalized understanding; I spent 10 minutes counseling smoking cessation --Acute upper GI bleeding; coffee-ground Emesis, --Duodenal Ulcer --Acute blood loss anemia; mild drop in H&H, closely monitor --Acute duodenitis/ --Leukocytosis --Ongoing tobacco use Disposition: DC-01 TO HOME OR SELFCARE Time spent for discharge: 32 min Core Measure Documentation - Palliative Care Palliative Care/ Comfort Measures: Not Applicable - Core Measures Any of the following diagnoses?: none Exam - Constitutional Vitals: Temp Pulse Resp BP Pulse Ox 98.3 F 96 H 16 113/77 9 L 09/04/17 12:41 09/04/17 13:10 09/04/17 13:10 09/04/17 13:10 09/04/17 13:10 General appearance: Present: no acute distress, well-nourished - EENT Eyes: Present: PERRL, EOM intact - Neck Neck: Present: supple, normal ROM - Respiratory Respiratory effort: normal Respiratory: bilateral: diminished, negative: rales, rhonchi, wheezing - Cardiovascular Rhythm: regular Heart Sounds: Present: S1 & S2 - Extremities Extremities: no ischemia, No edema - Abdominal General gastrointestinal: Present: soft, non-tender, non-distended, normal bowel sounds - Integumentary Integumentary: Present: clear, warm - Musculoskeletal Musculoskeletal: strength equal bilaterally - Psychiatric Psychiatric: appropriate mood/affect, cooperative - Neurologic Neurologic: CNII-XII intact, moves all extremities Plan Activity: no restrictions Diet: regular Special Instructions: smoking cessation Additional Instructions: Stop all NSAIDs and tobacco/drugs. Repeat EGD in 4-6 weeks given severity of DU and esophagitis for 2nd look and to rebiopsy. Follow up with: SIMRAN WONG MD [Primary Care Provider] - 3-5 Days LORETTA KRAFT MD [Staff Physician] - 7 Days Forms: Accompanied Note Prescriptions: Multivitamin Tab W-MINERAL [Multiple Vitamin/Mineral (Theragran M)] 1 each PO QDAY #30 tablet Nicotine [Nicotine Patch] 1 each TD DAILY #30 patch.td24 Pantoprazole [Protonix TAB] 40 mg PO QDAY #30 tablet
[2017-09-04 16:46] VITALS: BP 111/71
== END 2017-09-04 17:15 | disposition home or self-care (01) | DRG 378 ==
LOC: ED 07:37 → 3A 15:38
PROVIDERS: ADMIT Internal Medicine; ATTEND Internal Medicine
PROC: 0DB78ZX Excision of Stomach, Pylorus, Via Natural or Artificial Opening Endoscopic, Diagnostic (ICD-10-PCS; principal; 2017-09-04)
DX: K29.81 Duodenitis with bleeding (principal); E46 Unspecified protein-calorie malnutrition; D62 Acute posthemorrhagic anemia; K92.0 Hematemesis; R10.13 Epigastric pain; E86.0 Dehydration; F17.200 Nicotine dependence, unspecified, uncomplicated; Z68.32 Body mass index [BMI] 32.0-32.9, adult; E83.52 Hypercalcemia; E11.65 Type 2 diabetes mellitus with hyperglycemia; E66.9 Obesity, unspecified
CPT/HCPCS: 36415; 74177; 80053; 82962; 83690; 85014; 85018; 85025; 85610; 85730; 86850; 86900; 86901; 88305; 88342; 93005; 93010; 96365; 96375; 96376; 99406; C9113; J1956; J2250; J2270; J2405; J2704; J7030; J7042; Q9967

== ENCOUNTER 2017-10-01 21:44 | Emergency (ER) | payer SELFPAY ==
[2017-10-01 22:13] VITALS: BP 111/57
== END 2017-10-02 04:00 | disposition left against medical advice (07) ==
LOC: ED 21:44
DX: R11.2 Nausea with vomiting, unspecified (principal); R19.7 Diarrhea, unspecified; Z53.21 Procedure and treatment not carried out due to patient leaving prior to being seen by health care provider

== ENCOUNTER 2017-10-03 16:34 | Emergency (ER) | payer OTHER ==
[2017-10-03 16:50] VITALS: BP 126/81
[2017-10-03 17:29] LABS: Basophils # (Auto) 0.1 K/mm3 (0.0-0.1); Basophils % (Auto) 0.5 % (0.0-1.8); Eosinophils # (Auto) 0.1 K/mm3 (0.0-0.4); Eosinophils % (Auto) 1.4 % (0.0-4.3); Lymphocytes # (Auto) 1.1 K/mm3 (1.2-5.4); Lymphocytes % (Auto) 10.6 % (13.4-35.0); Mean Corpuscular HGB Conc 30 % (32-34); Mean Corpuscular Volume 71 fl (84-94); Monocytes % (Auto) 9.3 % (0.0-7.3); Platelet Count 564 K/mm3 (140-440); Red Blood Count 5.42 M/mm3 (3.65-5.03); Red Cell Distribution Width 19.9 % (13.2-15.2)
[2017-10-03 17:33] LABS: Hematocrit 38.7 % (35.5-45.6); Hemoglobin 11.7 gm/dl (11.8-15.2)
[2017-10-03 17:34] LABS: Mean Corpuscular Hemoglobin 22 pg (28-32)
[2017-10-03 17:38] LABS: BUN/Creatinine Ratio 23; Blood Urea Nitrogen 16 mg/dL (9-20); Hemolysis Index 5
== END 2017-10-04 12:12 | disposition left against medical advice (07) ==
LOC: ED 16:34
DX: R07.9 Chest pain, unspecified (principal); Z53.21 Procedure and treatment not carried out due to patient leaving prior to being seen by health care provider
CPT/HCPCS: 36415; 80048; 82962; 84484; 85025; 93005; 93010

== ENCOUNTER 2018-01-04 15:00 | Inpatient (IN) | payer OTHER ==
[2018-01-04] MEDS ORDERED: NACL 0.9% 1000 ML 1,000 ML IV ONE ×2 (16:41→21:30)
[2018-01-04 17:22] LABS: Alanine Aminotransferase 20 units/L (7-56); Albumin 4.4 g/dL (3.9-5); BUN/Creatinine Ratio 22; Blood Urea Nitrogen 13 mg/dL (9-20); Calcium 10.1 mg/dL (8.4-10.2); Hemolysis Index 4; Lipase 12 units/L (13-60)
[2018-01-04 17:54] LABS: Hematocrit 42.3 % (35.5-45.6); Hemoglobin 13.2 gm/dl (11.8-15.2); Mean Corpuscular HGB Conc 31 % (32-34); Mean Corpuscular Hemoglobin 23 pg (28-32); Mean Corpuscular Volume 72 fl (84-94); Platelet Count 600 K/mm3 (140-440); Red Blood Count 5.87 M/mm3 (3.65-5.03); Red Cell Distribution Width 19.1 % (13.2-15.2)
[2018-01-04 17:55] LABS: Partial Thromboplastin Time 25.2 Sec. (24.2-36.6)
--- NOTE | 2018-01-04 17:55 | Emergency Department Report ---
ED GI Bleed HPI - General Chief complaint: Nausea/Vomiting/Diarrhea Stated complaint: VOMITING BLOOD Time Seen by Provider: 01/04/18 17:53 Source: patient, old records reviewed Mode of arrival: Ambulatory Limitations: No Limitations - History of Present Illness Initial comments: 42-year-old male with a past medical history of GI bleed, stomach ulcers currently homeless with history of possible complaints of vomiting blood since this a.m. Patient had a multiple episodes of coffee-ground emesis. He complains of epigastric pain and burning and rated 8/10 in intensity. Pain is worse with palpation without alleviating factors Denies melena, hematochezia, or fever. Patient is sleeping throughout examination and mother states that he typically gets this way he is not feeling well. She provides additional history as well. He is compliant with his Prilosec. FROM MEDICAL RECORD: EGD with cold biopsy (09/2017) 1. 2cm flat, white-based DU in the bulb with significant distortion of anatomy from active and prior PUD 2. Moderate gastritis in the antrum and body; cold bx for H pylori 3. LA Grade D erosive esophagitis in the lower half, likely from chronic vomiting/substance abuse Mother the bedside states that 2 months ago patient was a Bhavik and had 3 biopsies of his GI tract to rule out cancer. He apparently is still awaiting the results. - Related Data Previous Rx's Medication Instructions Recorded Last Taken Type Multivitamin Tab W-MINERAL 1 each PO QDAY #30 tablet 09/04/17 Unknown Rx [Multiple Vitamin/Mineral (Theragran M)] Nicotine [Nicotine Patch] 1 each TD DAILY #30 patch.td24 09/04/17 Unknown Rx Pantoprazole [Protonix TAB] 40 mg PO QDAY #30 tablet 09/04/17 Unknown Rx Allergies Allergy/AdvReac Type Severity Reaction Status Date / Time No Known Allergies Allergy Verified 10/03/17 16:46 ED Review of Systems ROS: Stated complaint: VOMITING BLOOD Other details as noted in HPI Comment: All other systems reviewed and negative ED Past Medical Hx - Past Medical History Previous Medical History?: Yes Hx Diabetes: No (PREVIOUS HX BUT LOST WEIGHT AND DM RESOLVED) Additional medical history: Stomach ulcer - Surgical History Past Surgical History?: No - Social History Smoking Status: Current Every Day Smoker Substance Use Type: None - Medications Home Medications: Home Medications Medication Instructions Recorded Confirmed Last Taken Type Multivitamin Tab W-MINERAL 1 each PO QDAY #30 tablet 09/04/17 Unknown Rx [Multiple Vitamin/Mineral (Theragran M)] Nicotine [Nicotine Patch] 1 each TD DAILY #30 patch.td24 09/04/17 Unknown Rx Pantoprazole [Protonix TAB] 40 mg PO QDAY #30 tablet 09/04/17 Unknown Rx ED Physical Exam - General Limitations: No Limitations - Other Other exam information: General: Limited by patient's drowsiness but otherwise cooperative Head exam: Atraumatic, normocephalic Eyes exam: Normal appearance, nonicteric sclera, pink and dry ENT: Moist mucous membrane Neck exam: Normal inspection, full range of motion, no meningismus nontender Respiratory exam: Clear to auscultation bilateral, no wheezes, rales, crackles Cardiovascular: Normal rate and rhythm Abdomen: Soft, nondistended, epigastric tenderness, coffee ground emesis noted in the basin Extremity: Full range of motion normal inspection no deformity Back: Normal Inspection, full range of motion, no tenderness Neurologic: Sleeping but easily arousable, oriented x3, cranial nerves intact, no motor or sensory deficit Psychiatric: normal affect, normal mood Skin: Warm, dry, intact ED Course Vital Signs 01/04/18 01/04/18 01/04/18 15:28 21:29 22:49 Temperature 98.4 F Pulse Rate 103 H 92 H Respiratory 18 16 16 Rate Blood Pressure 103/71 Blood Pressure 147/89 [Left] O2 Sat by Pulse 99 100 99 Oximetry - Reevaluation(s) Reevaluation #2: 01/04/18 23:40 RN reports at initial gastric output coffee ground 400ml output from stomach after NGT insertion - Consultations Consultation #1: 01/04/18 21:36 case d/w [facility] (gi surgical product sales consultant) states sx may represent gastric outlet obstruction from duodenal ulcer. Recommend NG tube, Protonix twice daily, and nothing by mouth. They will consult and consider upper GI series for further investigation ED Medical Decision Making - Lab Data Result diagrams: 01/04/18 16:51 01/04/18 16:51 Lab Results 01/04/18 01/04/18 01/04/18 Range/Units 16:51 16:51 16:51 WBC 21.1 H (4.5-11.0) K/mm3 RBC 5.87 H (3.65-5.03) M/mm3 Hgb 13.2 (11.8-15.2) gm/dl Hct 42.3 (35.5-45.6) % MCV 72 L (84-94) fl MCH 23 L (28-32) pg MCHC 31 L (32-34) % RDW 19.1 H (13.2-15.2) % Plt Count 600 H (140-440) K/mm3 Add Manual Diff Complete Total Counted 100 Seg Neuts % (Manual) 89.0 H (40.0-70.0) % Band Neutrophils % 2.0 % Lymphocytes % (Manual) 2.0 L (13.4-35.0) % Reactive Lymphs % (Man) 0 % Monocytes % (Manual) 7.0 (0.0-7.3) % Eosinophils % (Manual) 0 (0.0-4.3) % Basophils % (Manual) 0 (0.0-1.8) % Metamyelocytes % 0 % Myelocytes % 0 % Promyelocytes % 0 % Blast Cells % 0 % Nucleated RBC % Not Reportable Seg Neutrophils # Man 18.8 H (1.8-7.7) K/mm3 Band Neutrophils # 0.4 K/mm3 Lymphocytes # (Manual) 0.4 L (1.2-5.4) K/mm3 Abs React Lymphs (Man) 0.0 K/mm3 Monocytes # (Manual) 1.5 H (0.0-0.8) K/mm3 Eosinophils # (Manual) 0.0 (0.0-0.4) K/mm3 Basophils # (Manual) 0.0 (0.0-0.1) K/mm3 Metamyelocytes # 0.0 K/mm3 Myelocytes # 0.0 K/mm3 Promyelocytes # 0.0 K/mm3 Blast Cells # 0.0 K/mm3 WBC Morphology Not Reportable Hypersegmented Neuts Not Reportable Hyposegmented Neuts Not Reportable Hypogranular Neuts Not Reportable Smudge Cells Not Reportable Toxic Granulation Not Reportable Toxic Vacuolation Not Reportable Dohle Bodies Not Reportable Pelger-Huet Anomaly Not Reportable Mike Rods Not Reportable Platelet Estimate Appears increased Clumped Platelets Not Reportable Plt Clumps, EDTA Not Reportable Large Platelets Not Reportable Giant Platelets Not Reportable Platelet Satelliting Not Reportable Plt Morphology Comment Not Reportable RBC Morphology Not Reportable Dimorphic RBCs Not Reportable Polychromasia Not Reportable Hypochromasia 1+ Poikilocytosis Not Reportable Anisocytosis Not Reportable Microcytosis 1+ Macrocytosis Not Reportable Spherocytes Not Reportable Pappenheimer Bodies Not Reportable Sickle Cells Not Reportable Target Cells Not Reportable Tear Drop Cells Not Reportable Ovalocytes Not Reportable Helmet Cells Not Reportable Venegas-[place]ranz[place] Bodies Not Reportable [place] Rings Not Reportable Colman Cells Not Reportable Bite Cells Not Reportable Crenated Cell Not Reportable Elliptocytes Few Acanthocytes (Spur) Not Reportable Rouleaux Not Reportable Hemoglobin C Crystals Not Reportable Schistocytes Not Reportable Malaria parasites Not Reportable Kodi Bodies Not Reportable Hem Pathologist Commnt No PT 13.7 (12.2-14.9) Sec. INR 1.00 (0.87-1.13) APTT 25.2 (24.2-36.6) Sec. Sodium 143 (137-145) mmol/L Potassium 3.2 L (3.6-5.0) mmol/L Chloride 94.4 L (98-107) mmol/L Carbon Dioxide 37 H (22-30) mmol/L Anion Gap 15 mmol/L BUN 13 (9-20) mg/dL Creatinine 0.6 L (0.8-1.5) mg/dL Estimated GFR > 60 ml/min BUN/Creatinine Ratio 22 % Glucose 162 H (75-100) mg/dL Calcium 10.1 (8.4-10.2) mg/dL Magnesium (1.7-2.3) mg/dL Total Bilirubin 0.70 (0.1-1.2) mg/dL AST 16 (5-40) units/L ALT 20 (7-56) units/L Alkaline Phosphatase 73 (35-129) units/L Total Protein 7.9 (6.3-8.2) g/dL Albumin 4.4 (3.9-5) g/dL Albumin/Globulin Ratio 1.3 % Lipase 12 L (13-60) units/L Blood Type Antibody Screen 01/04/18 01/04/18 Range/Units 16:51 16:51 WBC (4.5-11.0) K/mm3 RBC (3.65-5.03) M/mm3 Hgb (11.8-15.2) gm/dl Hct (35.5-45.6) % MCV (84-94) fl MCH (28-32) pg MCHC (32-34) % RDW (13.2-15.2) % Plt Count (140-440) K/mm3 Add Manual Diff Total Counted Seg Neuts % (Manual) (40.0-70.0) % Band Neutrophils % % Lymphocytes % (Manual) (13.4-35.0) % Reactive Lymphs % (Man) % Monocytes % (Manual) (0.0-7.3) % Eosinophils % (Manual) (0.0-4.3) % Basophils % (Manual) (0.0-1.8) % Metamyelocytes % % Myelocytes % % Promyelocytes % % Blast Cells % % Nucleated RBC % Seg Neutrophils # Man (1.8-7.7) K/mm3 Band Neutrophils # K/mm3 Lymphocytes # (Manual) (1.2-5.4) K/mm3 Abs React Lymphs (Man) K/mm3 Monocytes # (Manual) (0.0-0.8) K/mm3 Eosinophils # (Manual) (0.0-0.4) K/mm3 Basophils # (Manual) (0.0-0.1) K/mm3 Metamyelocytes # K/mm3 Myelocytes # K/mm3 Promyelocytes # K/mm3 Blast Cells # K/mm3 WBC Morphology Hypersegmented Neuts Hyposegmented Neuts Hypogranular Neuts Smudge Cells Toxic Granulation Toxic Vacuolation Dohle Bodies Pelger-Huet Anomaly Mike Rods Platelet Estimate Clumped Platelets Plt Clumps, EDTA Large Platelets Giant Platelets Platelet Satelliting Plt Morphology Comment RBC Morphology Dimorphic RBCs Polychromasia Hypochromasia Poikilocytosis Anisocytosis Microcytosis Macrocytosis Spherocytes Pappenheimer Bodies Sickle Cells Target Cells Tear Drop Cells Ovalocytes Helmet Cells Venegas-K[place] Bodies [place] Rings Jessica Cells Bite Cells Crenated Cell Elliptocytes Acanthocytes (Spur) Rouleaux Hemoglobin C Crystals Schistocytes Malaria parasites Kodi Bodies Hem Pathologist Commnt PT (12.2-14.9) Sec. INR (0.87-1.13) APTT (24.2-36.6) Sec. Sodium (137-145) mmol/L Potassium (3.6-5.0) mmol/L Chloride (98-107) mmol/L Carbon Dioxide (22-30) mmol/L Anion Gap mmol/L BUN (9-20) mg/dL Creatinine (0.8-1.5) mg/dL Estimated GFR ml/min BUN/Creatinine Ratio % Glucose (75-100) mg/dL Calcium (8.4-10.2) mg/dL Magnesium 1.90 (1.7-2.3) mg/dL Total Bilirubin (0.1-1.2) mg/dL AST (5-40) units/L ALT (7-56) units/L Alkaline Phosphatase (35-129) units/L Total Protein (6.3-8.2) g/dL Albumin (3.9-5) g/dL Albumin/Globulin Ratio % Lipase (13-60) units/L Blood Type O POSITIVE Antibody Screen Negative urine pending - EKG Data -: EKG Interpreted by Me EKG shows normal: sinus rhythm, axis (qrs 52), QRS complexes (qrsd 71), ST-T waves (no stemi/t inv) Rate: normal (74) - EKG Data When compared to previous EKG there are: no significant change - Radiology Data Radiology results: report reviewed read by radiologist cxr: naf ct abd and pelvis IV CONTRAST: IMPRESSION: Edematous wall thickening distal esophagus findings suggest esophagitis Distended stomach with some debris present Thickened appearance of the maier of the gastric antrum and possible ulcer at the duodenal bulb. - Medical Decision Making Patient may have gastric outlet instruction for underlying peptic ulcer disease. The coffee-ground emesis with no signs of anemia or me at this time. Guaiac-negative stool. Patient treated with protonix, normal saline, and Zofran in the ED. NG tube insertion ordered to be placed on intermittent suction due to possible gastric outlet obstruction. GI has been consultative will follow Patient has significant leukocytosis. No signs of infection at this time and may represent SIRS. Awaiting UA and urine drug screen collection - Differential Diagnosis gastritis, PUD, pancreatitis, coagulopathy, infection Critical Care Time: No Critical care attestation.: If time is entered above; I have spent that time in minutes in the direct care of this critically ill patient, excluding procedure time. ED Disposition Clinical Impression: Coffee ground emesis, Leukocytosis, Hypokalemia, Esophagitis, Gastritis, PUD ( peptic ulcer disease) Disposition: [id number] OP ADMIT IP TO THIS HOSP Is pt being admited?: Yes Condition: Stable Time of Disposition: 21:45 (hospitalist Dr Griffith)
[2018-01-04] MEDS ORDERED: PROTONIX IV ONE (18:06)
[2018-01-04] MEDS ORDERED: ZOFRAN IV ONE (18:06)
[2018-01-04] MEDS ORDERED: MORPHINE IV ONE (18:33)
[2018-01-04 18:40] LABS: Band Neutrophils # (Manual) 0.4 K/mm3; Basophils % (Manual) 0 % (0.0-1.8); Eosinophils % (Manual) 0 % (0.0-4.3); Total Cells Counted 100
[2018-01-04 18:42] LABS: Hypochromasia 1+; Platelet Estimate Appears Increased
--- NOTE | 2018-01-04 19:03 | XRay Report ---
FINAL REPORT EXAM: XR CHEST 1V AP HISTORY: vomiting leukocystosis TECHNIQUE: upright single view chest PRIORS: None. FINDINGS: Cardiac and mediastinal contours are unremarkable. No focal pulmonary infiltrate is identified. No pleural fluid collection seen. Pulmonary vasculature is unremarkable. IMPRESSION: Negative single-view chest
[2018-01-04] MEDS ORDERED: ZOFRAN ONE (20:23)
[2018-01-04] MEDS: KCL 10MEQ/100ML 10 MEQ/100 ML BAG IV SCH ×2 (20:53→22:41)
--- NOTE | 2018-01-04 21:13 | Cat Scan Report ---
FINAL REPORT EXAM: CT ABDOMEN PELVIS W CON HISTORY: epigastric pain, vomiting blood/coffee ground TECHNIQUE: CT abdomen and pelvis with intravenous contrast Axial images only are submitted for interpretation. Delayed postcontrast images were also obtained. PRIORS: None. FINDINGS: There is edematous appearing wall thickening in the visualized distal esophagus along with some fluid present. The stomach is distended. There is some radiodense material within the stomach some of which is echogenic.. Maier of the gastric antrum and duodenum appear thickened and there is appearance suggestive of possible duodenal ulcer with a small air bubble present. No focal abnormality identified within the liver parenchyma. The spleen demonstrates normal size and attenuation. No pancreatic abnormalities seen. The kidneys demonstrate symmetric contrast enhancement. No evidence of hydronephrosis. The adrenal glands are unremarkable Abdominal aorta is normal in caliber. No pathologically enlarged lymph nodes are identified. No signs of free fluid or free air No evidence of small bowel dilatation. Colon is nondistended. No pericolonic inflammatory change. Urinary bladder is unremarkable. IMPRESSION: Edematous wall thickening distal esophagus findings suggest esophagitis Distended stomach with some debris present Thickened appearance of the maier of the gastric antrum and possible ulcer at the duodenal bulb.
[2018-01-04] MEDS ORDERED: LIDOCAINE VISCOUS 2% ONE (21:48)
[2018-01-04] MEDS ORDERED: ZOFRAN IV PRN (23:15)
[2018-01-04] MEDS ORDERED: TYLENOL PO PRN (23:15)
[2018-01-04] MEDS ORDERED: SODIUM CHLORIDE FLUSH SYRINGE 10 ML IV PRN (23:15)
--- NOTE | 2018-01-04 23:15 | History and Physical Report ---
History of Present Illness Date of examination: 01/04/18 History of present illness: 42 -year-old man history of duodenal ulcer comes emergency room complaining of coffee-ground emesis. No xiphoid that he also complained of epigastric pain, very difficult to obtain a history from him, review of systems unobtainable PAST MEDICAL HISTORY: Duodenal ulcer PAST SURGICAL HISTORY: Unknown SOCIAL HISTORY: Unknown FAMILY HISTORY: Unknown Medications and Allergies Allergies Allergy/AdvReac Type Severity Reaction Status Date / Time No Known Allergies Allergy Verified 10/03/17 16:46 Home Medications Medication Instructions Recorded Confirmed Last Taken Type Multivitamin Tab W-MINERAL 1 each PO QDAY #30 tablet 09/04/17 Unknown Rx [Multiple Vitamin/Mineral (Theragran M)] Nicotine [Nicotine Patch] 1 each TD DAILY #30 patch.td24 09/04/17 Unknown Rx Pantoprazole [Protonix TAB] 40 mg PO QDAY #30 tablet 09/04/17 Unknown Rx Exam - Physical Exam Narrative exam: Gen. appearance: Patient lying in bed, no apparent distress HEENT: Normocephalic, atraumatic, pupils equally round and reactive to light, extraocular movement intact, and no sclericterus,. No JVD or thyromegaly or nodule,neck supple, no carotid bruit ,mucous membranes moist, no exudate or erythema Heart: S1, S2, regular rate and rhythm Lungs: Clear to auscultation bilaterally, breathing comfortable Abdomen: Positive bowel sounds, nontender, nondistended, no organomegaly Extremity: No edema, cyanosis, clubbing Skin: No rash, nodules, warm, dry Neuro: Lethargic but arousable - Constitutional Vitals: Temp Pulse Resp BP Pulse Ox 98.4 F 92 H 16 147/89 99 01/04/18 15:28 01/04/18 21:29 01/04/18 22:49 01/04/18 21:29 01/04/18 22:49 Results - Labs CBC & Chem 7: 01/05/18 03:27 01/05/18 03:27 Labs: Abnormal lab results 01/04/18 01/04/18 Range/Units 16:51 16:51 WBC 21.1 H (4.5-11.0) K/mm3 RBC 5.87 H (3.65-5.03) M/mm3 MCV 72 L (84-94) fl MCH 23 L (28-32) pg MCHC 31 L (32-34) % RDW 19.1 H (13.2-15.2) % Plt Count 600 H (140-440) K/mm3 Seg Neuts % (Manual) 89.0 H (40.0-70.0) % Lymphocytes % (Manual) 2.0 L (13.4-35.0) % Seg Neutrophils # Man 18.8 H (1.8-7.7) K/mm3 Lymphocytes # (Manual) 0.4 L (1.2-5.4) K/mm3 Monocytes # (Manual) 1.5 H (0.0-0.8) K/mm3 Potassium 3.2 L (3.6-5.0) mmol/L Chloride 94.4 L (98-107) mmol/L Carbon Dioxide 37 H (22-30) mmol/L Creatinine 0.6 L (0.8-1.5) mg/dL Glucose 162 H (75-100) mg/dL Lipase 12 L (13-60) units/L - Imaging and Cardiology CT scan - abdomen: report reviewed CT scan - pelvis: report reviewed Assessment and Plan Assessment GI bleed SIRS Plan Admit to medicine Start IV fluids, check serial hemoglobin, consult GI Start Protonix, IV Rocephin, vancomycin Obtain blood cultures Patient lethargic, obtain CT head DVT prophylaxis
[2018-01-04] MEDS ORDERED: ROCEPHIN/NS 1 GM/50 ML 1 GM/50 ML BAG IV SCH (23:30)
[2018-01-04 23:40] LABS: Hematocrit 39.8 % (35.5-45.6); Hemoglobin 12.3 gm/dl (11.8-15.2)
[2018-01-05] MEDS: cefTRIAXone 1 GM in NACL 0.9% 20 ML IV SCH ×2 (00:24→22:17)
[2018-01-05] MEDS: NACL 0.9% 1000 ML 1,000 ML IV SCH ×2 (00:24→10:59)
[2018-01-05] MEDS ORDERED: LIDOCAINE VISCOUS 2% PO ONE (00:53)
[2018-01-05 03:39] LABS: Hematocrit 38.8 % (35.5-45.6); Hemoglobin 12.2 gm/dl (11.8-15.2); Mean Corpuscular HGB Conc 32 % (32-34); Mean Corpuscular Volume 71 fl (84-94); Platelet Count 513 K/mm3 (140-440); Red Blood Count 5.44 M/mm3 (3.65-5.03); Red Cell Distribution Width 18.7 % (13.2-15.2)
[2018-01-05 03:40] LABS: Mean Corpuscular Hemoglobin 22 pg (28-32)
[2018-01-05 03:48] LABS: BUN/Creatinine Ratio 24; Blood Urea Nitrogen 12 mg/dL (9-20); Hemolysis Index 1
[2018-01-05] MEDS ORDERED: VANCOMYCIN/NS 1 GM/250 ML 1 GM/250 ML BAG IV SCH (04:15)
[2018-01-05] MEDS ORDERED: VANCOMYCIN 1,250 MG in NACL 0.9% 250ML 250 ML IV ONE (04:30)
[2018-01-05 04:37] LABS: Band Neutrophils # (Manual) 0.1 K/mm3; Basophils % (Manual) 0.5 % (0.0-1.8); Eosinophils % (Manual) 0 % (0.0-4.3); Hypochromasia 1+; Myelocytes # (Manual) 0.1 K/mm3; Platelet Estimate Consistent w Auto; Total Cells Counted 200
[2018-01-05] MEDS ORDERED: VANCOMYCIN PHARMACY TO DOSE IV SCH (05:00)
--- NOTE | 2018-01-05 05:54 | Cat Scan Report ---
FINAL REPORT EXAM: CT HEAD/BRAIN W CON HISTORY: lethargic TECHNIQUE: Routine axial imaging was obtained of the brain without IV contrast FINDINGS: There is no evidence of acute stroke or hemorrhage. The ventricular system is appropriate in size and is symmetric. The basal cisterns appear normal. The mastoid air cells are well pneumatized. The sinuses are clear. The orbital structures reveal a metallic BB imbedded in the medial aspect of the right orbit adjacent to the right globe. There is no evidence of skull fracture. IMPRESSION: No acute intracranial process. Imbedded metallic BB in the medial soft tissues of the right orbit adjacent to the right globe.
[2018-01-05 06:07] LABS: Bilirubin,Urine NEG (Negative); Blood,Urine NEG (Negative); Color,Urine Yellow (Yellow); Mucus,Urine FEW /HPF; Urobilinogen,Urine < 2.0 mg/dL (<2.0); WBC,Urine < 1.0 /HPF (0.0-6.0)
[2018-01-05 06:15] LABS: Benzodiazepines Screen,Urine PRESUMPTIVE NEGATIVE; Cannabinoid Screen,Urine PRESUMPTIVE NEGATIVE; Cocaine Screen,Urine PRESUMPTIVE NEGATIVE; Methadone Screen,Urine PRESUMPTIVE NEGATIVE; Opiate Screen,Urine PRESUMPTIVE NEGATIVE
[2018-01-05 06:39] LABS: Amphetamine Screen,Urine PRESUMPTIVE POSITIVE
[2018-01-05 07:19] LABS: Hematocrit 38.5 % (35.5-45.6)
[2018-01-05] MEDS: SODIUM CHLORIDE FLUSH SYRINGE 10 ML IV SCH (11:00)
[2018-01-05] MEDS: PROTONIX IV SCH ×2 (11:00→22:18)
--- NOTE | 2018-01-05 11:20 | Gastroenterology Consultation ---
<MARIIA BENTON - Last Filed: 01/05/18 11:24> History of Present Illness - Reason for Consult Consult date: 01/05/18 Coffee ground emesis, PUD Requesting physician: RAMESH GODFREY - History of Present Illness Patient is a 42 y/o male with PMH of GI bleed, PUD, tobacco dependence, and substance abuse who presented to ED with c/o epigastric pain and vomiting up coffee-ground emesis. Abd CT showed esophagitis, distended stomach with some debris, thickened maier of the gastric antrum, and possible ulcer at the duodenal bulb. Patient was resting in bed this am w/o acute distress. NG tube with scant amount of coffee-ground drainage. Patient states he is now feeling better with epigastric pain improving. No hematemesis, melena, or hematochezia. Denies CP, SOB, dizziness, dysphagia, odynophagia, diarrhea, or constipation. Takes daily PPI at home. No NSAID use. Admits to continued use of crystal meth but would not give time of last use. Patient is previously known to our service from a consult in 09/2017 for similar symptoms. He underwent an EGD at that time that revealed a duodenal ulcer in the bulb with significant distortion of anatomoy from active and prior PUD, moderate gastritis, and erosive esophagitis. Past History Past Medical History: other (GI bleed, PUD) Past Surgical History: No surgical history Social history: smoking, other (substance abuse (crystal meth)) Family history: no significant family history Medications and Allergies Allergies Allergy/AdvReac Type Severity Reaction Status Date / Time No Known Allergies Allergy Verified 10/03/17 16:46 Home Medications Medication Instructions Recorded Confirmed Last Taken Type No Known Home Medications [No 01/05/18 01/05/18 Unknown History Reported Home Medications] Active Meds: Active Medications Acetaminophen (Tylenol) 650 mg PO Q4H PRN PRN Reason: Pain MILD(1-3)/Fever >100.5/DIANE Sodium Chloride (Nacl 0.9% 1000 Ml) 1,000 mls @ 100 mls/hr IV DIRECT [facility] Last Admin: 01/05/18 10:59 Dose: 100 mls/hr Ceftriaxone Sodium 1 gm/ (Sodium Chloride) 20 mls @ 2 mls/min IV Q24HR@2200 [facility] Last Admin: 01/05/18 00:24 Dose: 2 mls/min Vancomycin HCl (Vancomycin/0.45 Ns 1 Gm/250 Ml) 1 gm in 250 mls @ 166.667 mls/ hr IV Q12H [facility] Ondansetron HCl (Zofran) 4 mg IV Q4H PRN PRN Reason: Nausea And Vomiting Last Admin: 01/05/18 00:06 Dose: 4 mg Pantoprazole Sodium (Protonix) 40 mg IV BID [facility] Last Admin: 01/05/18 11:00 Dose: 40 mg Sodium Chloride (Sodium Chloride Flush Syringe 10 Ml) 10 ml IV BID [facility] Last Admin: 01/05/18 11:00 Dose: 10 ml Sodium Chloride (Sodium Chloride Flush Syringe 10 Ml) 10 ml IV PRN PRN PRN Reason: LINE FLUSH Vancomycin HCl (Vancomycin Pharmacy To Dose) 1 each IV PKCONSULT [facility] Review of Systems - Review of Systems All systems: negative Gastrointestinal: abdominal pain (epigastric), vomiting, coffee ground emesis Exam - Constitutional Vital Signs: Temp Pulse Resp BP Pulse Ox 98.0 F 104 H 18 121/76 95 01/05/18 07:30 01/05/18 07:30 01/05/18 07:30 01/05/18 07:30 01/05/18 07:30 General appearance: no acute distress, disheveled - Respiratory Respiratory: bilateral: CTA (anterior) - Cardiovascular Rhythm: other (tachycardia) Heart Sounds: Present: S1 & S2 - Gastrointestinal General gastrointestinal: Present: soft, non-tender, non-distended, normal bowel sounds - Neurologic Neurological: alert and oriented x3 - Labs CBC & Chem 7: 01/05/18 06:59 01/05/18 03:27 Lab Results: Laboratory Results - last 24 hr 01/04/18 01/04/18 01/04/18 16:51 16:51 16:51 WBC 21.1 H RBC 5.87 H Hgb 13.2 Hct 42.3 MCV 72 L MCH 23 L MCHC 31 L RDW 19.1 H Plt Count 600 H Add Manual Diff Complete Total Counted 100 Seg Neuts % (Manual) 89.0 H Band Neutrophils % 2.0 Lymphocytes % (Manual) 2.0 L Reactive Lymphs % (Man) 0 Monocytes % (Manual) 7.0 Eosinophils % (Manual) 0 Basophils % (Manual) 0 Metamyelocytes % 0 Myelocytes % 0 Promyelocytes % 0 Blast Cells % 0 Nucleated RBC % Not Reportable Seg Neutrophils # Man 18.8 H Band Neutrophils # 0.4 Lymphocytes # (Manual) 0.4 L Abs React Lymphs (Man) 0.0 Monocytes # (Manual) 1.5 H Eosinophils # (Manual) 0.0 Basophils # (Manual) 0.0 Metamyelocytes # 0.0 Myelocytes # 0.0 Promyelocytes # 0.0 Blast Cells # 0.0 WBC Morphology Not Reportable Hypersegmented Neuts Not Reportable Hyposegmented Neuts Not Reportable Hypogranular Neuts Not Reportable Smudge Cells Not Reportable Toxic Granulation Not Reportable Toxic Vacuolation Not Reportable Dohle Bodies Not Reportable Pelger-Huet Anomaly Not Reportable Mike Rods Not Reportable Platelet Estimate Appears increased Clumped Platelets Not Reportable Plt Clumps, EDTA Not Reportable Large Platelets Not Reportable Giant Platelets Not Reportable Platelet Satelliting Not Reportable Plt Morphology Comment Not Reportable RBC Morphology Not Reportable Dimorphic RBCs Not Reportable Polychromasia Not Reportable Hypochromasia 1+ Poikilocytosis Not Reportable Anisocytosis Not Reportable Microcytosis 1+ Macrocytosis Not Reportable Spherocytes Not Reportable Pappenheimer Bodies Not Reportable Sickle Cells Not Reportable Target Cells Not Reportable Tear Drop Cells Not Reportable Ovalocytes Not Reportable Helmet Cells Not Reportable [place] Bodies Not Reportable [place] Rings Not Reportable Jessica Cells Not Reportable Bite Cells Not Reportable Crenated Cell Not Reportable Elliptocytes Few Acanthocytes (Spur) Not Reportable Rouleaux Not Reportable Hemoglobin C Crystals Not Reportable Schistocytes Not Reportable Malaria parasites Not Reportable [place] Bodies Not Reportable Hem Pathologist Commnt No PT 13.7 INR 1.00 APTT 25.2 Sodium 143 Potassium 3.2 L Chloride 94.4 L Carbon Dioxide 37 H Anion Gap 15 BUN 13 Creatinine 0.6 L Estimated GFR > 60 BUN/Creatinine Ratio 22 Glucose 162 H POC Glucose Calcium 10.1 Magnesium Total Bilirubin 0.70 AST 16 ALT 20 Alkaline Phosphatase 73 Total Protein 7.9 Albumin 4.4 Albumin/Globulin Ratio 1.3 Lipase 12 L Urine Color Urine Turbidity Urine pH Ur Specific [place] Urine Protein Urine Glucose (UA) Urine Ketones Urine Blood Urine Nitrite Urine Bilirubin Urine Urobilinogen Ur Leukocyte Esterase Urine WBC (Auto) Urine RBC (Auto) Urine Mucus Urine Opiates Screen Urine Methadone Screen Ur Barbiturates Screen Ur Phencyclidine Scrn Ur Amphetamines Screen U Benzodiazepines Scrn Urine Cocaine Screen U Marijuana (THC) Screen Drugs of Abuse Note Blood Type Antibody Screen 01/04/18 01/04/18 01/04/18 16:51 16:51 23:31 WBC RBC Hgb 12.3 Hct 39.8 MCV MCH MCHC RDW Plt Count Add Manual Diff Total Counted Seg Neuts % (Manual) Band Neutrophils % Lymphocytes % (Manual) Reactive Lymphs % (Man) Monocytes % (Manual) Eosinophils % (Manual) Basophils % (Manual) Metamyelocytes % Myelocytes % Promyelocytes % Blast Cells % Nucleated RBC % Seg Neutrophils # Man Band Neutrophils # Lymphocytes # (Manual) Abs React Lymphs (Man) Monocytes # (Manual) Eosinophils # (Manual) Basophils # (Manual) Metamyelocytes # Myelocytes # Promyelocytes # Blast Cells # WBC Morphology Hypersegmented Neuts Hyposegmented Neuts Hypogranular Neuts Smudge Cells Toxic Granulation Toxic Vacuolation Dohle Bodies Pelger-Huet Anomaly Mike Rods Platelet Estimate Clumped Platelets Plt Clumps, EDTA Large Platelets Giant Platelets Platelet Satelliting Plt Morphology Comment RBC Morphology Dimorphic RBCs Polychromasia Hypochromasia Poikilocytosis Anisocytosis Microcytosis Macrocytosis Spherocytes Pappenheimer Bodies Sickle Cells Target Cells Tear Drop Cells Ovalocytes Helmet Cells [place] Bodies [place] Cells Bite Cells Crenated Cell Elliptocytes Acanthocytes (Spur) Rouleaux Hemoglobin C Crystals Schistocytes Malaria parasites [place] Bodies Hem Pathologist Commnt PT INR APTT Sodium Potassium Chloride Carbon Dioxide Anion Gap BUN Creatinine Estimated GFR BUN/Creatinine Ratio Glucose POC Glucose Calcium Magnesium 1.90 Total Bilirubin AST ALT Alkaline Phosphatase Total Protein Albumin Albumin/Globulin Ratio Lipase Urine Color Urine Turbidity Urine pH Ur Specific [place] Urine Protein Urine Glucose (UA) Urine Ketones Urine Blood Urine Nitrite Urine Bilirubin Urine Urobilinogen Ur Leukocyte Esterase Urine WBC (Auto) Urine RBC (Auto) Urine Mucus Urine Opiates Screen Urine Methadone Screen Ur Barbiturates Screen Ur Phencyclidine Scrn Ur Amphetamines Screen U Benzodiazepines Scrn Urine Cocaine Screen U Marijuana (THC) Screen Drugs of Abuse Note Blood Type O POSITIVE Antibody Screen Negative 01/05/18 01/05/18 01/05/18 03:27 03:27 05:32 WBC 25.0 H RBC 5.44 H Hgb 12.2 Hct 38.8 MCV 71 L MCH 22 L MCHC 32 RDW 18.7 H Plt Count 513 H Add Manual Diff Complete Total Counted 200 Seg Neuts % (Manual) 86.0 H Band Neutrophils % 0.5 Lymphocytes % (Manual) 7.5 L Reactive Lymphs % (Man) 0 Monocytes % (Manual) 5.0 Eosinophils % (Manual) 0 Basophils % (Manual) 0.5 Metamyelocytes % 0 Myelocytes % 0.5 Promyelocytes % 0 Blast Cells % 0 Nucleated RBC % Not Reportable Seg Neutrophils # Man 21.5 H Band Neutrophils # 0.1 Lymphocytes # (Manual) 1.9 Abs React Lymphs (Man) 0.0 Monocytes # (Manual) 1.3 H Eosinophils # (Manual) 0.0 Basophils # (Manual) 0.1 Metamyelocytes # 0.0 Myelocytes # 0.1 Promyelocytes # 0.0 Blast Cells # 0.0 WBC Morphology Not Reportable Hypersegmented Neuts Not Reportable Hyposegmented Neuts Not Reportable Hypogranular Neuts Not Reportable Smudge Cells Not Reportable Toxic Granulation Not Reportable Toxic Vacuolation Not Reportable Dohle Bodies Not Reportable Pelger-Huet Anomaly Not Reportable Mike Rods Not Reportable Platelet Estimate Consistent w auto Clumped Platelets Not Reportable Plt Clumps, EDTA Not Reportable Large Platelets Not Reportable Giant Platelets Not Reportable Platelet Satelliting Not Reportable Plt Morphology Comment Not Reportable RBC Morphology Not Reportable Dimorphic RBCs Not Reportable Polychromasia Not Reportable Hypochromasia 1+ Poikilocytosis Not Reportable Anisocytosis Not Reportable Microcytosis Not Reportable Macrocytosis Not Reportable Spherocytes Not Reportable Pappenheimer Bodies Not Reportable Sickle Cells Not Reportable Target Cells Not Reportable Tear Drop Cells Not Reportable Ovalocytes Not Reportable Helmet Cells Not Reportable [place] Bodies Not Reportable [place] Not Reportable Jessica Cells Not Reportable Bite Cells Not Reportable Crenated Cell Not Reportable Elliptocytes Not Reportable Acanthocytes (Spur) Not Reportable Rouleaux Not Reportable Hemoglobin C Crystals Not Reportable Schistocytes Not Reportable Malaria parasites Not Reportable [place] Bodies Not Reportable Hem Pathologist Commnt No PT INR APTT Sodium 143 Potassium 3.6 Chloride 101.1 Carbon Dioxide 30 D Anion Gap 16 BUN 12 Creatinine 0.5 L Estimated GFR > 60 BUN/Creatinine Ratio 24 Glucose 133 H POC Glucose Calcium 9.0 Magnesium Total Bilirubin AST ALT Alkaline Phosphatase Total Protein Albumin Albumin/Globulin Ratio Lipase Urine Color Urine Turbidity Urine pH Ur Specific [place] Urine Protein Urine Glucose (UA) Urine Ketones Urine Blood Urine Nitrite Urine Bilirubin Urine Urobilinogen Ur Leukocyte Esterase Urine WBC (Auto) Urine RBC (Auto) Urine Mucus Urine Opiates Screen Presumptive negative Urine Methadone Screen Presumptive negative Ur Barbiturates Screen Presumptive negative Ur Phencyclidine Scrn Presumptive negative Ur Amphetamines Screen Presumptive positive U Benzodiazepines Scrn Presumptive negative Urine Cocaine Screen Presumptive negative U Marijuana (THC) Screen Presumptive negative Drugs of Abuse Note Disclamer Blood Type Antibody Screen 01/05/18 01/05/18 01/05/18 05:32 05:53 06:59 WBC RBC Hgb 12.0 Hct 38.5 MCV MCH MCHC RDW Plt Count Add Manual Diff Total Counted Seg Neuts % (Manual) Band Neutrophils % Lymphocytes % (Manual) Reactive Lymphs % (Man) Monocytes % (Manual) Eosinophils % (Manual) Basophils % (Manual) Metamyelocytes % Myelocytes % Promyelocytes % Blast Cells % Nucleated RBC % Seg Neutrophils # Man Band Neutrophils # Lymphocytes # (Manual) Abs React Lymphs (Man) Monocytes # (Manual) Eosinophils # (Manual) Basophils # (Manual) Metamyelocytes # Myelocytes # Promyelocytes # Blast Cells # WBC Morphology Hypersegmented Neuts Hyposegmented Neuts Hypogranular Neuts Smudge Cells Toxic Granulation Toxic Vacuolation Dohle Bodies Pelger-Huet Anomaly Mike Rods Platelet Estimate Clumped Platelets Plt Clumps, EDTA Large Platelets Giant Platelets Platelet Satelliting Plt Morphology Comment RBC Morphology Dimorphic RBCs Polychromasia Hypochromasia Poikilocytosis Anisocytosis Microcytosis Macrocytosis Spherocytes Pappenheimer Bodies Sickle Cells Target Cells Tear Drop Cells Ovalocytes Helmet Cells [place] Bodies [place] Cells Bite Cells Crenated Cell Elliptocytes Acanthocytes (Spur) Rouleaux Hemoglobin C Crystals Schistocytes Malaria parasites [place] Bodies Hem Pathologist Commnt PT INR APTT Sodium Potassium Chloride Carbon Dioxide Anion Gap BUN Creatinine Estimated GFR BUN/Creatinine Ratio Glucose POC Glucose 123 H Calcium Magnesium Total Bilirubin AST ALT Alkaline Phosphatase Total Protein Albumin Albumin/Globulin Ratio Lipase Urine Color Yellow Urine Turbidity Clear Urine pH 9.0 H Ur Specific [place] > 1.059 H Urine Protein 100 mg/dl Urine Glucose (UA) Neg Urine Ketones 20 Urine Blood Neg Urine Nitrite Neg Urine Bilirubin Neg Urine Urobilinogen < 2.0 Ur Leukocyte Esterase Neg Urine WBC (Auto) < 1.0 Urine RBC (Auto) 2.0 Urine Mucus Few Urine Opiates Screen Urine Methadone Screen Ur Barbiturates Screen Ur Phencyclidine Scrn Ur Amphetamines Screen U Benzodiazepines Scrn Urine Cocaine Screen U Marijuana (THC) Screen Drugs of Abuse Note Blood Type Antibody Screen Assessment and Plan 1.coffee-ground emesis 2.epigastric pain 3.h/o PUD 4.substance abuse 5.tobacco dependency -HGB 12-stable -continue to monitor H/H and transfuse as needed -hold blood thinning medications -NG to LIS with scant amount of coffee-ground drainage- currently HD stable -last EGD 09/2017 revealed a duodenal ulcer in the bulb with significant distortion of anatomoy from active and prior PUD, moderate gastritis, and erosive esophagitis (Bx positive for H. pylori) -Abd CT showed esophagitis, distended stomach with some debris, thickened maier of the gastric antrum, and possible ulcer at the duodenal bulb -etiology- possible gastric outlet obstruction due to underlying PUD -will order UGI series today to r/o GOO -consider repeat EGD based on results/progress -continue PPI and supportive care -will follow <BRONSON HAHN - Last Filed: 01/05/18 22:49> Medications and Allergies Active Meds: Active Medications Acetaminophen (Tylenol) 650 mg PO Q4H PRN PRN Reason: Pain MILD(1-3)/Fever >100.5/DIANE Sodium Chloride (Nacl 0.9% 1000 Ml) 1,000 mls @ 100 mls/hr IV DIRECT [facility] Last Admin: 01/05/18 10:59 Dose: 100 mls/hr Ceftriaxone Sodium 1 gm/ (Sodium Chloride) 20 mls @ 2 mls/min IV Q24HR@2200 [facility] Last Admin: 01/05/18 22:17 Dose: 2 mls/min Vancomycin HCl (Vancomycin/0.45 Ns 1 Gm/250 Ml) 1 gm in 250 mls @ 166.667 mls/ hr IV Q12H [facility] Ondansetron HCl (Zofran) 4 mg IV Q4H PRN PRN Reason: Nausea And Vomiting Last Admin: 01/05/18 00:06 Dose: 4 mg Pantoprazole Sodium (Protonix) 40 mg IV BID [facility] Last Admin: 01/05/18 22:18 Dose: 40 mg Sodium Chloride (Sodium Chloride Flush Syringe 10 Ml) 10 ml IV BID [facility] Last Admin: 01/05/18 11:00 Dose: 10 ml Sodium Chloride (Sodium Chloride Flush Syringe 10 Ml) 10 ml IV PRN PRN PRN Reason: LINE FLUSH Vancomycin HCl (Vancomycin Pharmacy To Dose) 1 each IV PKCONSULT [facility] Exam - Constitutional Vital Signs: Temp Pulse Resp BP Pulse Ox 98.9 F 67 20 126/72 98 01/05/18 20:05 01/05/18 20:05 01/05/18 20:05 01/05/18 20:05 01/05/18 20:05 - Labs CBC & Chem 7: 01/05/18 17:35 01/05/18 03:27 Lab Results: Laboratory Results - last 24 hr 01/04/18 01/05/18 01/05/18 23:31 03:27 03:27 WBC 25.0 H RBC 5.44 H Hgb 12.3 12.2 Hct 39.8 38.8 MCV 71 L MCH 22 L MCHC 32 RDW 18.7 H Plt Count 513 H Add Manual Diff Complete Total Counted 200 Seg Neuts % (Manual) 86.0 H Band Neutrophils % 0.5 Lymphocytes % (Manual) 7.5 L Reactive Lymphs % (Man) 0 Monocytes % (Manual) 5.0 Eosinophils % (Manual) 0 Basophils % (Manual) 0.5 Metamyelocytes % 0 Myelocytes % 0.5 Promyelocytes % 0 Blast Cells % 0 Nucleated RBC % Not Reportable Seg Neutrophils # Man 21.5 H Band Neutrophils # 0.1 Lymphocytes # (Manual) 1.9 Abs React Lymphs (Man) 0.0 Monocytes # (Manual) 1.3 H Eosinophils # (Manual) 0.0 Basophils # (Manual) 0.1 Metamyelocytes # 0.0 Myelocytes # 0.1 Promyelocytes # 0.0 Blast Cells # 0.0 WBC Morphology Not Reportable Hypersegmented Neuts Not Reportable Hyposegmented Neuts Not Reportable Hypogranular Neuts Not Reportable Smudge Cells Not Reportable Toxic Granulation Not Reportable Toxic Vacuolation Not Reportable Dohle Bodies Not Reportable Pelger-Huet Anomaly Not Reportable Mike Rods Not Reportable Platelet Estimate Consistent w auto Clumped Platelets Not Reportable Plt Clumps, EDTA Not Reportable Large Platelets Not Reportable Giant Platelets Not Reportable Platelet Satelliting Not Reportable Plt Morphology Comment Not Reportable RBC Morphology Not Reportable Dimorphic RBCs Not Reportable Polychromasia Not Reportable Hypochromasia 1+ Poikilocytosis Not Reportable Anisocytosis Not Reportable Microcytosis Not Reportable Macrocytosis Not Reportable Spherocytes Not Reportable Pappenheimer Bodies Not Reportable Sickle Cells Not Reportable Target Cells Not Reportable Tear Drop Cells Not Reportable Ovalocytes Not Reportable Helmet Cells Not Reportable [place] Bodies Not Reportable [place] Rings Not Reportable Jessica Cells Not Reportable Bite Cells Not Reportable Crenated Cell Not Reportable Elliptocytes Not Reportable Acanthocytes (Spur) Not Reportable Rouleaux Not Reportable Hemoglobin C Crystals Not Reportable Schistocytes Not Reportable Malaria parasites Not Reportable [place] Bodies Not Reportable Hem Pathologist Commnt No Sodium 143 Potassium 3.6 Chloride 101.1 Carbon Dioxide 30 D Anion Gap 16 BUN 12 Creatinine 0.5 L Estimated GFR > 60 BUN/Creatinine Ratio 24 Glucose 133 H POC Glucose Calcium 9.0 Urine Color Urine Turbidity Urine pH Ur Specific [place] Urine Protein Urine Glucose (UA) Urine Ketones Urine Blood Urine Nitrite Urine Bilirubin Urine Urobilinogen Ur Leukocyte Esterase Urine WBC (Auto) Urine RBC (Auto) Urine Mucus Urine Opiates Screen Urine Methadone Screen Ur Barbiturates Screen Ur Phencyclidine Scrn Ur Amphetamines Screen U Benzodiazepines Scrn Urine Cocaine Screen U Marijuana (THC) Screen Drugs of Abuse Note 01/05/18 01/05/18 01/05/18 05:32 05:32 05:53 WBC RBC Hgb Hct MCV MCH MCHC RDW Plt Count Add Manual Diff Total Counted Seg Neuts % (Manual) Band Neutrophils % Lymphocytes % (Manual) Reactive Lymphs % (Man) Monocytes % (Manual) Eosinophils % (Manual) Basophils % (Manual) Metamyelocytes % Myelocytes % Promyelocytes % Blast Cells % Nucleated RBC % Seg Neutrophils # Man Band Neutrophils # Lymphocytes # (Manual) Abs React Lymphs (Man) Monocytes # (Manual) Eosinophils # (Manual) Basophils # (Manual) Metamyelocytes # Myelocytes # Promyelocytes # Blast Cells # WBC Morphology Hypersegmented Neuts Hyposegmented Neuts Hypogranular Neuts Smudge Cells Toxic Granulation Toxic Vacuolation Dohle Bodies Pelger-Huet Anomaly Mike Rods Platelet Estimate Clumped Platelets Plt Clumps, EDTA Large Platelets Giant Platelets Platelet Satelliting Plt Morphology Comment RBC Morphology Dimorphic RBCs Polychromasia Hypochromasia Poikilocytosis Anisocytosis Microcytosis Macrocytosis Spherocytes Pappenheimer Bodies Sickle Cells Target Cells Tear Drop Cells Ovalocytes Helmet Cells [place] Bodies [place] Cells Bite Cells Crenated Cell Elliptocytes Acanthocytes (Spur) Rouleaux Hemoglobin C Crystals Schistocytes Malaria parasites [place] Bodies Hem Pathologist Commnt Sodium Potassium Chloride Carbon Dioxide Anion Gap BUN Creatinine Estimated GFR BUN/Creatinine Ratio Glucose POC Glucose 123 H Calcium Urine Color Yellow Urine Turbidity Clear Urine pH 9.0 H Ur Specific [place] > 1.059 H Urine Protein 100 mg/dl Urine Glucose (UA) Neg Urine Ketones 20 Urine Blood Neg Urine Nitrite Neg Urine Bilirubin Neg Urine Urobilinogen < 2.0 Ur Leukocyte Esterase Neg Urine WBC (Auto) < 1.0 Urine RBC (Auto) 2.0 Urine Mucus Few Urine Opiates Screen Presumptive negative Urine Methadone Screen Presumptive negative Ur Barbiturates Screen Presumptive negative Ur Phencyclidine Scrn Presumptive negative Ur Amphetamines Screen Presumptive positive U Benzodiazepines Scrn Presumptive negative Urine Cocaine Screen Presumptive negative U Marijuana (THC) Screen Presumptive negative Drugs of Abuse Note Disclamer 01/05/18 01/05/18 06:59 17:35 WBC RBC Hgb 12.0 11.9 Hct 38.5 38.2 MCV MCH MCHC RDW Plt Count Add Manual Diff Total Counted Seg Neuts % (Manual) Band Neutrophils % Lymphocytes % (Manual) Reactive Lymphs % (Man) Monocytes % (Manual) Eosinophils % (Manual) Basophils % (Manual) Metamyelocytes % Myelocytes % Promyelocytes % Blast Cells % Nucleated RBC % Seg Neutrophils # Man Band Neutrophils # Lymphocytes # (Manual) Abs React Lymphs (Man) Monocytes # (Manual) Eosinophils # (Manual) Basophils # (Manual) Metamyelocytes # Myelocytes # Promyelocytes # Blast Cells # WBC Morphology Hypersegmented Neuts Hyposegmented Neuts Hypogranular Neuts Smudge Cells Toxic Granulation Toxic Vacuolation Dohle Bodies Pelger-Huet Anomaly Mike Rods Platelet Estimate Clumped Platelets Plt Clumps, EDTA Large Platelets Giant Platelets Platelet Satelliting Plt Morphology Comment RBC Morphology Dimorphic RBCs Polychromasia Hypochromasia Poikilocytosis Anisocytosis Microcytosis Macrocytosis Spherocytes Pappenheimer Bodies Sickle Cells Target Cells Tear Drop Cells Ovalocytes Helmet Cells [place] Bodies [place] Jessica Cells Bite Cells Crenated Cell Elliptocytes Acanthocytes (Spur) Rouleaux Hemoglobin C Crystals Schistocytes Malaria parasites [place] Bodies Hem Pathologist Commnt Sodium Potassium Chloride Carbon Dioxide Anion Gap BUN Creatinine Estimated GFR BUN/Creatinine Ratio Glucose POC Glucose Calcium Urine Color Urine Turbidity Urine pH Ur Specific [place] Urine Protein Urine Glucose (UA) Urine Ketones Urine Blood Urine Nitrite Urine Bilirubin Urine Urobilinogen Ur Leukocyte Esterase Urine WBC (Auto) Urine RBC (Auto) Urine Mucus Urine Opiates Screen Urine Methadone Screen Ur Barbiturates Screen Ur Phencyclidine Scrn Ur Amphetamines Screen U Benzodiazepines Scrn Urine Cocaine Screen U Marijuana (THC) Screen Drugs of Abuse Note Assessment and Plan Pt seen and examined. Agree with note above. Patient with h/o known PUD with continued substance abuse who presents with abd pain and coffee ground emesis. H/H stable without further signs of bleeding since admission. CT findings reviewed. Will obtain UGI series to evaluate for GOO. Consider EGD based on progress and radiology findings.
[2018-01-05 18:33] LABS: Hematocrit 38.2 % (35.5-45.6); Hemoglobin 11.9 gm/dl (11.8-15.2)
--- NOTE | 2018-01-05 20:44 | Progress Note ---
Assessment and Plan Assessment and plan: --Upper GI bleeding/coffee-ground emesis; IV Protonix, avoid NSAIDs, nothing by mouth status, GI evaluated the patient Advised upper GI series is, possible EGD, follow H&H --History of peptic ulcer disease; continue Protonix Avoid NSAIDs, strongly advised to quit recreational drugs --Possible UTI/Leukocytosis empiric antibiotics, follow cultures --SIRS by criteria, cultures obtained, closely monitor --Metabolic encephalopathy; improved, CT head negative --DVT prophylaxis; SCDs Follow GI recommendations Closely monitor the patient and adjust management as needed Plan of care reviewed with the patient and the nurse History Interval history: Patient seen and examined, medical records reviewed admitted with GI bleeding GI has evaluated the patient recommended by GI series Patient feels better no new episodes of bleeding Vital signs reviewed Hospitalist Physical - Constitutional Vitals: Temp Pulse Resp BP Pulse Ox 98.9 F 67 20 126/72 98 01/05/18 20:05 01/05/18 20:05 01/05/18 20:05 01/05/18 20:05 01/05/18 20:05 General appearance: Present: no acute distress, well-nourished - EENT Eyes: Present: PERRL, EOM intact - Neck Neck: Present: supple, normal ROM - Respiratory Respiratory effort: normal Respiratory: negative: rales, rhonchi, wheezing - Cardiovascular Rhythm: regular Heart Sounds: Present: S1 & S2 - Extremities Extremities: no ischemia, No edema - Abdominal General gastrointestinal: soft, non-tender, non-distended, normal bowel sounds - Integumentary Integumentary: Present: clear, warm - Psychiatric Psychiatric: appropriate mood/affect, cooperative - Neurologic Neurologic: CNII-XII intact, moves all extremities Results - Labs CBC & Chem 7: 01/05/18 17:35 01/05/18 03:27 Labs: Laboratory Last Values WBC 25.0 K/mm3 (4.5-11.0) H 01/05/18 03:27 RBC 5.44 M/mm3 (3.65-5.03) H 01/05/18 03:27 Hgb 11.9 gm/dl (11.8-15.2) 01/05/18 17:35 Hct 38.2 % (35.5-45.6) 01/05/18 17:35 MCV 71 fl (84-94) L 01/05/18 03:27 MCH 22 pg (28-32) L 01/05/18 03:27 MCHC 32 % (32-34) 01/05/18 03:27 RDW 18.7 % (13.2-15.2) H 01/05/18 03:27 Plt Count 513 K/mm3 (140-440) H 01/05/18 03:27 Add Manual Diff Complete 01/05/18 03:27 Total Counted 200 01/05/18 03:27 Seg Neuts % (Manual) 86.0 % (40.0-70.0) H 01/05/18 03:27 Band Neutrophils % 0.5 % 01/05/18 03:27 Lymphocytes % (Manual) 7.5 % (13.4-35.0) L 01/05/18 03:27 Reactive Lymphs % (Man) 0 % 01/05/18 03:27 Monocytes % (Manual) 5.0 % (0.0-7.3) 01/05/18 03:27 Eosinophils % (Manual) 0 % (0.0-4.3) 01/05/18 03:27 Basophils % (Manual) 0.5 % (0.0-1.8) 01/05/18 03:27 Metamyelocytes % 0 % 01/05/18 03:27 Myelocytes % 0.5 % 01/05/18 03:27 Promyelocytes % 0 % 01/05/18 03:27 Blast Cells % 0 % 01/05/18 03:27 Nucleated RBC % Not Reportable 01/05/18 03:27 Seg Neutrophils # Man 21.5 K/mm3 (1.8-7.7) H 01/05/18 03:27 Band Neutrophils # 0.1 K/mm3 01/05/18 03:27 Lymphocytes # (Manual) 1.9 K/mm3 (1.2-5.4) 01/05/18 03:27 Abs React Lymphs (Man) 0.0 K/mm3 01/05/18 03:27 Monocytes # (Manual) 1.3 K/mm3 (0.0-0.8) H 01/05/18 03:27 Eosinophils # (Manual) 0.0 K/mm3 (0.0-0.4) 01/05/18 03:27 Basophils # (Manual) 0.1 K/mm3 (0.0-0.1) 01/05/18 03:27 Metamyelocytes # 0.0 K/mm3 01/05/18 03:27 Myelocytes # 0.1 K/mm3 01/05/18 03:27 Promyelocytes # 0.0 K/mm3 01/05/18 03:27 Blast Cells # 0.0 K/mm3 01/05/18 03:27 WBC Morphology Not Reportable 01/05/18 03:27 Hypersegmented Neuts Not Reportable 01/05/18 03:27 Hyposegmented Neuts Not Reportable 01/05/18 03:27 Hypogranular Neuts Not Reportable 01/05/18 03:27 Smudge Cells Not Reportable 01/05/18 03:27 Toxic Granulation Not Reportable 01/05/18 03:27 Toxic Vacuolation Not Reportable 01/05/18 03:27 Dohle Bodies Not Reportable 01/05/18 03:27 Pelger-Huet Anomaly Not Reportable 01/05/18 03:27 Mike Rods Not Reportable 01/05/18 03:27 Platelet Estimate Consistent w auto 01/05/18 03:27 Clumped Platelets Not Reportable 01/05/18 03:27 Plt Clumps, EDTA Not Reportable 01/05/18 03:27 Large Platelets Not Reportable 01/05/18 03:27 Giant Platelets Not Reportable 01/05/18 03:27 Platelet Satelliting Not Reportable 01/05/18 03:27 Plt Morphology Comment Not Reportable 01/05/18 03:27 RBC Morphology Not Reportable 01/05/18 03:27 Dimorphic RBCs Not Reportable 01/05/18 03:27 Polychromasia Not Reportable 01/05/18 03:27 Hypochromasia 1+ 01/05/18 03:27 Poikilocytosis Not Reportable 01/05/18 03:27 Anisocytosis Not Reportable 01/05/18 03:27 Microcytosis Not Reportable 01/05/18 03:27 Macrocytosis Not Reportable 01/05/18 03:27 Spherocytes Not Reportable 01/05/18 03:27 Pappenheimer Bodies Not Reportable 01/05/18 03:27 Sickle Cells Not Reportable 01/05/18 03:27 Target Cells Not Reportable 01/05/18 03:27 Tear Drop Cells Not Reportable 01/05/18 03:27 Ovalocytes Not Reportable 01/05/18 03:27 Helmet Cells Not Reportable 01/05/18 03:27 [place] Bodies Not Reportable 01/05/18 03:27 [place] Rings Not Reportable 01/05/18 03:27 [place] Cells Not Reportable 01/05/18 03:27 Bite Cells Not Reportable 01/05/18 03:27 Crenated Cell Not Reportable 01/05/18 03:27 Elliptocytes Not Reportable 01/05/18 03:27 Acanthocytes (Spur) Not Reportable 01/05/18 03:27 Rouleaux Not Reportable 01/05/18 03:27 Hemoglobin C Crystals Not Reportable 01/05/18 03:27 Schistocytes Not Reportable 01/05/18 03:27 Malaria parasites Not Reportable 01/05/18 03:27 [place] Bodies Not Reportable 01/05/18 03:27 Hem Pathologist Commnt No 01/05/18 03:27 PT 13.7 Sec. (12.2-14.9) 01/04/18 16:51 INR 1.00 (0.87-1.13) 01/04/18 16:51 APTT 25.2 Sec. (24.2-36.6) 01/04/18 16:51 Sodium 143 mmol/L (137-145) 01/05/18 03:27 Potassium 3.6 mmol/L (3.6-5.0) 01/05/18 03:27 Chloride 101.1 mmol/L (98-107) 01/05/18 03:27 Carbon Dioxide 30 mmol/L (22-30) D 01/05/18 03:27 Anion Gap 16 mmol/L 01/05/18 03:27 BUN 12 mg/dL (9-20) 01/05/18 03:27 Creatinine 0.5 mg/dL (0.8-1.5) L 01/05/18 03:27 Estimated GFR > 60 ml/min 01/05/18 03:27 BUN/Creatinine Ratio 24 % 01/05/18 03:27 Glucose 133 mg/dL (75-100) H 01/05/18 03:27 POC Glucose 123 (70-105) H 01/05/18 05:53 Calcium 9.0 mg/dL (8.4-10.2) 01/05/18 03:27 Magnesium 1.90 mg/dL (1.7-2.3) 01/04/18 16:51 Total Bilirubin 0.70 mg/dL (0.1-1.2) 01/04/18 16:51 AST 16 units/L (5-40) 01/04/18 16:51 ALT 20 units/L (7-56) 01/04/18 16:51 Alkaline Phosphatase 73 units/L (35-129) 01/04/18 16:51 Total Protein 7.9 g/dL (6.3-8.2) 01/04/18 16:51 Albumin 4.4 g/dL (3.9-5) 01/04/18 16:51 Albumin/Globulin Ratio 1.3 % 01/04/18 16:51 Lipase 12 units/L (13-60) L 01/04/18 16:51 Urine Color Yellow (Yellow) 01/05/18 05:32 Urine Turbidity Clear (Clear) 01/05/18 05:32 Urine pH 9.0 (5.0-7.0) H 01/05/18 05:32 Ur Specific [place] > 1.059 (1.003-1.030) H 01/05/18 05:32 Urine Protein 100 mg/dl mg/dL (Negative) 01/05/18 05:32 Urine Glucose (UA) Neg mg/dL (Negative) 01/05/18 05:32 Urine Ketones 20 mg/dL (Negative) 01/05/18 05:32 Urine Blood Neg (Negative) 01/05/18 05:32 Urine Nitrite Neg (Negative) 01/05/18 05:32 Urine Bilirubin Neg (Negative) 01/05/18 05:32 Urine Urobilinogen < 2.0 mg/dL (<2.0) 01/05/18 05:32 Ur Leukocyte Esterase Neg (Negative) 01/05/18 05:32 Urine WBC (Auto) < 1.0 /HPF (0.0-6.0) 01/05/18 05:32 Urine RBC (Auto) 2.0 /HPF (0.0-6.0) 01/05/18 05:32 Urine Mucus Few /HPF 01/05/18 05:32 Urine Opiates Screen Presumptive negative 01/05/18 05:32 Urine Methadone Screen Presumptive negative 01/05/18 05:32 Ur Barbiturates Screen Presumptive negative 01/05/18 05:32 Ur Phencyclidine Scrn Presumptive negative 01/05/18 05:32 Ur Amphetamines Screen Presumptive positive 01/05/18 05:32 U Benzodiazepines Scrn Presumptive negative 01/05/18 05:32 Urine Cocaine Screen Presumptive negative 01/05/18 05:32 U Marijuana (THC) Screen Presumptive negative 01/05/18 05:32 Drugs of Abuse Note Disclamer 01/05/18 05:32 Blood Type O POSITIVE 01/04/18 16:51 Antibody Screen Negative 01/04/18 16:51
[2018-01-06] MEDS: NACL 0.9% 1000 ML 1,000 ML IV SCH ×2 (01:00→19:03)
[2018-01-06] MEDS: SODIUM CHLORIDE FLUSH SYRINGE 10 ML IV SCH (04:06)
[2018-01-06] MEDS: VANCOMYCIN/0.45 NS 1 GM/250 ML 1 GM/250 ML BAG IV SCH ×2 (06:49→19:26)
--- NOTE | 2018-01-06 08:07 | Fluoroscopy Report ---
UPPER GI SERIES WITH SMALL BOWEL FOLLOW-THROUGH HISTORY: Abdominal pain, possible gastric outlet obstruction FINDINGS: [employer] film of the abdomen demonstrates an unremarkable bowel gas pattern. A nasogastric tube terminates in the fundus of the stomach. 26 fluoroscopic images were obtained. The esophagus is normal caliber. No mucosal defect or stricture is appreciated. No hiatal hernia or reflux was witnessed during this exam. There is mild mucosal thickening throughout the stomach consistent with gastritis. There is focal irregular mucosal thickening in the gastric antrum and duodenal bulb demonstrated on multiple images. It is unclear if this represents a mass or related to peptic ulcer disease. There is no evidence for obstruction or extravasation of contrast. Transit time of the contrast agent through the small bowel loops is moderately delayed at 3.5 hours. The remainder of the duodenum, jejunum and ileum are within normal limits. The terminal ileum is normal. No cecal filling defect. The appendix is not confidently identified, correlate with surgical history. IMPRESSION: Moderate mucosal irregularity in the distal stomach and duodenal bulb concerning for mass or peptic ulcer disease. I favor peptic ulcer disease. Direct visualization is recommended.
--- NOTE | 2018-01-06 08:44 | Progress Note ---
Assessment and Plan Assessment and plan: --Upper GI bleeding/coffee-ground emesis; IV Protonix, avoid NSAIDs, nothing by mouth status, GI evaluated the patient Upper GI series; moderate mucosal irregularities in the distal stomach and duodenal bulb possible mass or peptic ulcer EGD tomorrow --History of peptic ulcer disease; continue Protonix Avoid NSAIDs, strongly advised to quit recreational drugs --Possible UTI/Leukocytosis empiric antibiotics, follow cultures --SIRS by criteria, cultures obtained, closely monitor --Metabolic encephalopathy; improved, CT head negative --DVT prophylaxis; SCDs May discharge in 1-2 days if stable . History Interval history: Patient seen and examined medical records reviewed No new events reported by the nursing staff Feels better no new complaints GI planning EGD tomorrow Vital signs reviewed stable Hospitalist Physical - Constitutional Vitals: Temp Pulse Resp BP Pulse Ox 98.2 F 95 H 18 126/79 95 01/06/18 05:03 01/06/18 05:03 01/06/18 05:03 01/06/18 05:03 01/06/18 05:03 General appearance: Present: no acute distress, well-nourished - EENT Eyes: Present: PERRL, EOM intact - Neck Neck: Present: supple, normal ROM - Respiratory Respiratory effort: normal Respiratory: negative: rales, rhonchi, wheezing - Cardiovascular Rhythm: regular Heart Sounds: Present: S1 & S2 - Extremities Extremities: no ischemia, No edema - Abdominal General gastrointestinal: soft, non-tender, non-distended, normal bowel sounds - Integumentary Integumentary: Present: clear, warm - Psychiatric Psychiatric: appropriate mood/affect, cooperative - Neurologic Neurologic: CNII-XII intact, moves all extremities Results - Labs CBC & Chem 7: 01/05/18 17:35 01/05/18 03:27 Labs: Laboratory Last Values WBC 25.0 K/mm3 (4.5-11.0) H 01/05/18 03:27 RBC 5.44 M/mm3 (3.65-5.03) H 01/05/18 03:27 Hgb 11.9 gm/dl (11.8-15.2) 01/05/18 17:35 Hct 38.2 % (35.5-45.6) 01/05/18 17:35 MCV 71 fl (84-94) L 01/05/18 03:27 MCH 22 pg (28-32) L 01/05/18 03:27 MCHC 32 % (32-34) 01/05/18 03:27 RDW 18.7 % (13.2-15.2) H 01/05/18 03:27 Plt Count 513 K/mm3 (140-440) H 01/05/18 03:27 Add Manual Diff Complete 01/05/18 03:27 Total Counted 200 01/05/18 03:27 Seg Neuts % (Manual) 86.0 % (40.0-70.0) H 01/05/18 03:27 Band Neutrophils % 0.5 % 01/05/18 03:27 Lymphocytes % (Manual) 7.5 % (13.4-35.0) L 01/05/18 03:27 Reactive Lymphs % (Man) 0 % 01/05/18 03:27 Monocytes % (Manual) 5.0 % (0.0-7.3) 01/05/18 03:27 Eosinophils % (Manual) 0 % (0.0-4.3) 01/05/18 03:27 Basophils % (Manual) 0.5 % (0.0-1.8) 01/05/18 03:27 Metamyelocytes % 0 % 01/05/18 03:27 Myelocytes % 0.5 % 01/05/18 03:27 Promyelocytes % 0 % 01/05/18 03:27 Blast Cells % 0 % 01/05/18 03:27 Nucleated RBC % Not Reportable 01/05/18 03:27 Seg Neutrophils # Man 21.5 K/mm3 (1.8-7.7) H 01/05/18 03:27 Band Neutrophils # 0.1 K/mm3 01/05/18 03:27 Lymphocytes # (Manual) 1.9 K/mm3 (1.2-5.4) 01/05/18 03:27 Abs React Lymphs (Man) 0.0 K/mm3 01/05/18 03:27 Monocytes # (Manual) 1.3 K/mm3 (0.0-0.8) H 01/05/18 03:27 Eosinophils # (Manual) 0.0 K/mm3 (0.0-0.4) 01/05/18 03:27 Basophils # (Manual) 0.1 K/mm3 (0.0-0.1) 01/05/18 03:27 Metamyelocytes # 0.0 K/mm3 01/05/18 03:27 Myelocytes # 0.1 K/mm3 01/05/18 03:27 Promyelocytes # 0.0 K/mm3 01/05/18 03:27 Blast Cells # 0.0 K/mm3 01/05/18 03:27 WBC Morphology Not Reportable 01/05/18 03:27 Hypersegmented Neuts Not Reportable 01/05/18 03:27 Hyposegmented Neuts Not Reportable 01/05/18 03:27 Hypogranular Neuts Not Reportable 01/05/18 03:27 Smudge Cells Not Reportable 01/05/18 03:27 Toxic Granulation Not Reportable 01/05/18 03:27 Toxic Vacuolation Not Reportable 01/05/18 03:27 Dohle Bodies Not Reportable 01/05/18 03:27 Pelger-[place] Anomaly Not Reportable 01/05/18 03:27 Mike Rods Not Reportable 01/05/18 03:27 Platelet Estimate Consistent w auto 01/05/18 03:27 Clumped Platelets Not Reportable 01/05/18 03:27 Plt Clumps, EDTA Not Reportable 01/05/18 03:27 Large Platelets Not Reportable 01/05/18 03:27 Giant Platelets Not Reportable 01/05/18 03:27 Platelet Satelliting Not Reportable 01/05/18 03:27 Plt Morphology Comment Not Reportable 01/05/18 03:27 RBC Morphology Not Reportable 01/05/18 03:27 Dimorphic RBCs Not Reportable 01/05/18 03:27 Polychromasia Not Reportable 01/05/18 03:27 Hypochromasia 1+ 01/05/18 03:27 Poikilocytosis Not Reportable 01/05/18 03:27 Anisocytosis Not Reportable 01/05/18 03:27 Microcytosis Not Reportable 01/05/18 03:27 Macrocytosis Not Reportable 01/05/18 03:27 Spherocytes Not Reportable 01/05/18 03:27 Pappenheimer Bodies Not Reportable 01/05/18 03:27 Sickle Cells Not Reportable 01/05/18 03:27 Target Cells Not Reportable 01/05/18 03:27 Tear Drop Cells Not Reportable 01/05/18 03:27 Ovalocytes Not Reportable 01/05/18 03:27 Helmet Cells Not Reportable 01/05/18 03:27 Veneg[place] Bodies Not Reportable 01/05/18 03:27 [place] Rings Not Reportable 01/05/18 03:27 [place] Cells Not Reportable 01/05/18 03:27 Bite Cells Not Reportable 01/05/18 03:27 Crenated Cell Not Reportable 01/05/18 03:27 Elliptocytes Not Reportable 01/05/18 03:27 Acanthocytes (Spur) Not Reportable 01/05/18 03:27 Rouleaux Not Reportable 01/05/18 03:27 Hemoglobin C Crystals Not Reportable 01/05/18 03:27 Schistocytes Not Reportable 01/05/18 03:27 Malaria parasites Not Reportable 01/05/18 03:27 [place] Bodies Not Reportable 01/05/18 03:27 Hem Pathologist Commnt No 01/05/18 03:27 PT 13.7 Sec. (12.2-14.9) 01/04/18 16:51 INR 1.00 (0.87-1.13) 01/04/18 16:51 APTT 25.2 Sec. (24.2-36.6) 01/04/18 16:51 Sodium 143 mmol/L (137-145) 01/05/18 03:27 Potassium 3.6 mmol/L (3.6-5.0) 01/05/18 03:27 Chloride 101.1 mmol/L (98-107) 01/05/18 03:27 Carbon Dioxide 30 mmol/L (22-30) D 01/05/18 03:27 Anion Gap 16 mmol/L 01/05/18 03:27 BUN 12 mg/dL (9-20) 01/05/18 03:27 Creatinine 0.5 mg/dL (0.8-1.5) L 01/05/18 03:27 Estimated GFR > 60 ml/min 01/05/18 03:27 BUN/Creatinine Ratio 24 % 01/05/18 03:27 Glucose 133 mg/dL (75-100) H 01/05/18 03:27 POC Glucose 123 (70-105) H 01/05/18 05:53 Calcium 9.0 mg/dL (8.4-10.2) 01/05/18 03:27 Magnesium 1.90 mg/dL (1.7-2.3) 01/04/18 16:51 Total Bilirubin 0.70 mg/dL (0.1-1.2) 01/04/18 16:51 AST 16 units/L (5-40) 01/04/18 16:51 ALT 20 units/L (7-56) 01/04/18 16:51 Alkaline Phosphatase 73 units/L (35-129) 01/04/18 16:51 Total Protein 7.9 g/dL (6.3-8.2) 01/04/18 16:51 Albumin 4.4 g/dL (3.9-5) 01/04/18 16:51 Albumin/Globulin Ratio 1.3 % 01/04/18 16:51 Lipase 12 units/L (13-60) L 01/04/18 16:51 Urine Color Yellow (Yellow) 01/05/18 05:32 Urine Turbidity Clear (Clear) 01/05/18 05:32 Urine pH 9.0 (5.0-7.0) H 01/05/18 05:32 Ur Specific [place] > 1.059 (1.003-1.030) H 01/05/18 05:32 Urine Protein 100 mg/dl mg/dL (Negative) 01/05/18 05:32 Urine Glucose (UA) Neg mg/dL (Negative) 01/05/18 05:32 Urine Ketones 20 mg/dL (Negative) 01/05/18 05:32 Urine Blood Neg (Negative) 01/05/18 05:32 Urine Nitrite Neg (Negative) 01/05/18 05:32 Urine Bilirubin Neg (Negative) 01/05/18 05:32 Urine Urobilinogen < 2.0 mg/dL (<2.0) 01/05/18 05:32 Ur Leukocyte Esterase Neg (Negative) 01/05/18 05:32 Urine WBC (Auto) < 1.0 /HPF (0.0-6.0) 01/05/18 05:32 Urine RBC (Auto) 2.0 /HPF (0.0-6.0) 01/05/18 05:32 Urine Mucus Few /HPF 01/05/18 05:32 Urine Opiates Screen Presumptive negative 01/05/18 05:32 Urine Methadone Screen Presumptive negative 01/05/18 05:32 Ur Barbiturates Screen Presumptive negative 01/05/18 05:32 Ur Phencyclidine Scrn Presumptive negative 01/05/18 05:32 Ur Amphetamines Screen Presumptive positive 01/05/18 05:32 U Benzodiazepines Scrn Presumptive negative 01/05/18 05:32 Urine Cocaine Screen Presumptive negative 01/05/18 05:32 U Marijuana (THC) Screen Presumptive negative 01/05/18 05:32 Drugs of Abuse Note Disclamer 01/05/18 05:32 Blood Type O POSITIVE 01/04/18 16:51 Antibody Screen Negative 01/04/18 16:51
[2018-01-06] MEDS: PROTONIX IV SCH ×2 (11:00→21:43)
--- NOTE | 2018-01-06 11:05 | Gastroenterology Progress Note ---
Assessment and Plan 1.coffee-ground emesis 2.epigastric pain 3.h/o PUD 4.substance abuse 5.tobacco dependency -HGB 11.9-stable -continue to monitor H/H and transfuse as needed -no active signs of bleeding overnight or this am -NG with bilious drainage- okay to d/c -last EGD 09/2017 revealed a duodenal ulcer in the bulb with significant distortion of anatomoy from active and prior PUD, moderate gastritis, and erosive esophagitis (Bx positive for H. pylori) -Abd CT showed esophagitis, distended stomach with some debris, thickened maier of the gastric antrum, and possible ulcer at the duodenal bulb -etiology-possible GOO due to underlying PUD -UGI series yesterday showed moderate mucosal irregularity in the distal stomach and duodenal bulb concerning for mass vs PUD (most likely PUD) but evidence of an obstruction -will schedule for EGD in am for further evaluation -continue PPI and supportive care -avoid NSAIDs -will follow Subjective Date of service: 01/06/18 Principal diagnosis: PUD, coffee-ground emesis Interval history: Patient w/o acute distress. No active signs of bleeding overnight or this am. NG with bilious drainage. Objective - Constitutional Vitals: Temp Pulse Resp BP Pulse Ox 98.2 F 95 H 18 126/79 95 01/06/18 05:03 01/06/18 05:03 01/06/18 05:03 01/06/18 05:03 01/06/18 05:03 General appearance: no acute distress - EENT Eyes: PERRL, EOM intact ENT: hearing intact - Cardiovascular Rhythm: regular Heart Sounds: Present: S1 & S2 - Gastrointestinal General gastrointestinal: Present: soft, non-tender, non-distended, normal bowel sounds - Labs CBC & Chem 7: 01/05/18 17:35 01/05/18 03:27 Labs: Laboratory Results - last 24 hr 01/05/18 17:35 Hgb 11.9 Hct 38.2
[2018-01-06] MEDS: cefTRIAXone 1 GM in NACL 0.9% 20 ML IV SCH (21:43)
[2018-01-07 05:19] LABS: Basophils # (Auto) 0.1 K/mm3 (0.0-0.1); Basophils % (Auto) 1.3 % (0.0-1.8); Eosinophils # (Auto) 0.3 K/mm3 (0.0-0.4); Hemoglobin 10.4 gm/dl (11.8-15.2); Lymphocytes # (Auto) 2.6 K/mm3 (1.2-5.4); Lymphocytes % (Auto) 25.4 % (13.4-35.0); Mean Corpuscular HGB Conc 32 % (32-34); Mean Corpuscular Volume 72 fl (84-94); Monocytes # (Auto) 0.9 K/mm3 (0.0-0.8); Monocytes % (Auto) 8.5 % (0.0-7.3); Platelet Count 411 K/mm3 (140-440); Red Blood Count 4.57 M/mm3 (3.65-5.03); Red Cell Distribution Width 18.5 % (13.2-15.2)
[2018-01-07 05:33] LABS: Mean Corpuscular Hemoglobin 23 pg (28-32)
[2018-01-07] MEDS: VANCOMYCIN/0.45 NS 1 GM/250 ML 1 GM/250 ML BAG IV SCH (06:03)
[2018-01-07] MEDS ORDERED: HABITROL TD SCH (10:00)
[2018-01-07] MEDS: NACL 0.9% 1000 ML 1,000 ML IV SCH ×2 (10:27→12:05)
[2018-01-07] MEDS: PROTONIX IV SCH (10:27)
[2018-01-07] MEDS: SODIUM CHLORIDE FLUSH SYRINGE 10 ML IV SCH ×2 (10:28→15:12)
[2018-01-07] MEDS ORDERED: WATER FOR IRRIG STERILE IR ONE (11:35)
--- NOTE | 2018-01-07 12:20 | Anesthesia Consultation ---
Anesthesia Consult and Med Hx Date of service: 01/07/18 - Airway Anesthetic Teeth Evaluation: Poor ROM Head & Neck: Adequate Mental/Hyoid Distance: Adequate Mallampati Class: Class II Intubation Access Assessment: Probably Good - Pulmonary Exam CTA: Yes - Cardiac Exam Cardiac Exam: RRR - Pre-Operative Health Status ASA Pre-Surgery Classification: ASA3 Proposed Anesthetic Plan: TIVA - Pulmonary Hx Smoking: Yes - Gastrointestinal Hx Ulcer: Yes - Endocrine Hx Non-Insulin Dependent Diabetes: Yes - Hematic Hx Anemia: Yes - Other Systems Hx Substance Use: Yes (METH) Hx Cancer: No Hx Obesity: Yes
[2018-01-07] MEDS ORDERED: DIPRIVAN 10 MG/ML IV ONE ×2 (13:35)
--- NOTE | 2018-01-07 13:47 | Post Operative Note ---
Pre-op diagnosis: UGI bleed, PUD Post-op diagnosis: other (large cratered duodenal ulcer in duodenal bulb, severe duodenitis, erosive gastritis, severe esophagitis) Findings: EGD: severe esophagitis (white mucosa in mid-lower third with erosions in proximal esophagus) biopsied, erosive gastritis (biopsied), large cratered duodenal bulb ucer w/o bleeding stigmata. No gastric outlet obstruction Procedure: EGD with biopsies Anesthesia: MAC Surgeon: BRONSON HAHN Estimated blood loss: minimal Pathology: list (Jar A - duodenal ulcer edge biopsies, Jar B - gastric biopsies , Jar C - esophageal biopsies)
--- NOTE | 2018-01-07 13:57 | Operative Report ---
Operative Report Operative Report: Esophagogastroduodenoscopy Procedure Note with Biopsies Date of procedure: 01/07/2018 Endoscopist: Devin Vickers Pre-op diagnosis: UGI bleeding, h/o PUD Post-op diagnosis: severe esophagitis, erosive gastritis, large duodenal bulb ulcer Anesthesia: MAC Complications: No immediate complications Estimated blood loss: minimal Procedure: After consent was obtained, the patient was placed in the left lateral decubitus position. The fujinon endoscope was inserted into the patient 's mouth under direct vision, and advanced to the 2nd portion of duodenum without difficulty. The patient tolerated the procedure well. The views of the mucosa were good. Patient's vital signs were monitored continuously throughout the procedure. Findings: There was diffuse, circumferential white mucosa in the mid to distal esophagus. Biopsies were obtained to evaluate for almita vs early ischemic changes. There were multiple erosions and erythematous mucosa in the proximal esophagus. Multiple clean based erosions in the antrum of the stomach. Moderately severe erythematous mucosa in the antrum. Biopsies were obtained. There was a large cratered ulcer in the duodenal bulb (~4-5 cm). The surround mucosa were severe inflamed and erythematous. Biopsies were obtained to evaluate for dysplasia. The endoscope advanced to the 2nd portion of duodenum without difficulty (no gastric outlet obstruction). The ulcer was clean based without high risk bleeding stigmata. Impression: 1. Severe esophagitis and mucosal changes as above. Biopsies obtained. 2. Erosive gastritis. Biopsies obtained. 3. Large cratered duodenal bulb ulcer (clean based). Edges of ulcer were biopsied. Recommendations: -restart clear liquid diet and advance as tolerated -PPI BID dosing -follow-up pathology -suspect persistent PUD and UGI tract abnormalities are from continued substance abuse and non-compliance to medications. Will need repeat EGD in 6-8 weeks to assess for healing. If persistent PUD, evaluate for other etiologies ( check gastrin level, consider further imaging if malignancy remains concern although suspect persistent disease is related to illicit drugs/non-compliance). Follow-up in GI clinic in 1 month. Will sign off, please call as needed or with questions.
[2018-01-07 14:20] VITALS: BP 101/65
--- NOTE | 2018-01-07 16:19 | Progress Note ---
Assessment and Plan Assessment and plan: --Upper GI bleeding/coffee-ground emesis; -- Upper GI series; moderate mucosal irregularities in the distal stomach and duodenal bulb possible mass or peptic ulcer s/p EGD;severe esophagitis (white mucosa in mid-lower third with erosions in proximal esophagus) biopsied, erosive gastritis (biopsied), large cratered duodenal bulb ucer w/o bleeding stigmata. No gastric outlet obstruction Continue Protonix, avoid NSAIDs --History of peptic ulcer disease; continue Protonix Avoid NSAIDs, strongly advised to quit recreational drugs --Possible UTI/Leukocytosis empiric antibiotics, follow cultures --SIRS by criteria, cultures obtained, closely monitor --Metabolic encephalopathy; improved, CT head negative --DVT prophylaxis; SCDs May discharge in 1-2 days if stable . History Interval history: Patient seen and examined medical records reviewed Patient Underwent EGD EGD:severe esophagitis (white mucosa in mid-lower third with erosions in proximal esophagus) biopsied, erosive gastritis (biopsied), large cratered duodenal bulb ucer w/o bleeding stigmata. No gastric outlet obstruction Slightly better no new complaints Vital signs reviewed Hospitalist Physical - Constitutional Vitals: Temp Pulse Resp BP Pulse Ox 98.1 F 93 H 16 101/65 98 01/07/18 13:45 01/07/18 14:15 01/07/18 14:15 01/07/18 14:15 01/07/18 14:15 General appearance: Present: no acute distress, well-nourished - EENT Eyes: Present: PERRL, EOM intact - Neck Neck: Present: supple, normal ROM - Respiratory Respiratory effort: normal Respiratory: bilateral: diminished, negative: rales, rhonchi, wheezing - Cardiovascular Rhythm: regular Heart Sounds: Present: S1 & S2 - Extremities Extremities: no ischemia, No edema Peripheral Pulses: within normal limits - Abdominal General gastrointestinal: soft, non-tender, non-distended, normal bowel sounds - Integumentary Integumentary: Present: clear, warm - Psychiatric Psychiatric: appropriate mood/affect, cooperative - Neurologic Neurologic: CNII-XII intact, moves all extremities Results - Labs CBC & Chem 7: 01/07/18 04:27 01/05/18 03:27 Labs: Laboratory Last Values WBC 10.0 K/mm3 (4.5-11.0) 01/07/18 04:27 RBC 4.57 M/mm3 (3.65-5.03) 01/07/18 04:27 Hgb 10.4 gm/dl (11.8-15.2) L 01/07/18 04:27 Hct 33.0 % (35.5-45.6) L 01/07/18 04:27 MCV 72 fl (84-94) L 01/07/18 04:27 MCH 23 pg (28-32) L 01/07/18 04: MCHC 32 % (32-34) 01/07/18 04:27 RDW 18.5 % (13.2-15.2) H 01/07/18 04:27 Plt Count 411 K/mm3 (140-440) 01/07/18 04:27 Lymph % (Auto) 25.4 % (13.4-35.0) 01/07/18 04:27 [place] % (Auto) 8.5 % (0.0-7.3) H 01/07/18 04:27 Eos % (Auto) 3.0 % (0.0-4.3) 01/07/18 04:27 Baso % (Auto) 1.3 % (0.0-1.8) 01/07/18 04:27 Lymph # 2.6 K/mm3 (1.2-5.4) 01/07/18 04:27 [place] # 0.9 K/mm3 (0.0-0.8) H 01/07/18 04:27 Eos # 0.3 K/mm3 (0.0-0.4) 01/07/18 04:27 Baso # 0.1 K/mm3 (0.0-0.1) 01/07/18 04:27 Add Manual Diff Complete 01/05/18 03:27 Total Counted 200 01/05/18 03:27 Seg Neutrophils % 61.8 % (40.0-70.0) 01/07/18 04:27 Seg Neuts % (Manual) 86.0 % (40.0-70.0) H 01/05/18 03:27 Band Neutrophils % 0.5 % 01/05/18 03:27 Lymphocytes % (Manual) 7.5 % (13.4-35.0) L 04/04/18 03:27 Reactive Lymphs % (Man) 0 % 01/05/18 03:27 Monocytes % (Manual) 5.0 % (0.0-7.3) 01/05/18 03:27 Eosinophils % (Manual) 0 % (0.0-4.3) 01/05/18 03:27 Basophils % (Manual) 0.5 % (0.0-1.8) 01/05/18 03:27 Metamyelocytes % 0 % 01/05/18 03:27 Myelocytes % 0.5 % 01/05/18 03:27 Promyelocytes % 0 % 01/05/18 03:27 Blast Cells % 0 % 01/05/18 03:27 Nucleated RBC % Not Reportable 01/05/18 03:27 Seg Neutrophils # 6.2 K/mm3 (1.8-7.7) 01/07/18 04:27 Seg Neutrophils # Man 21.5 K/mm3 (1.8-7.7) H 01/05/18 03:27 Band Neutrophils # 0.1 K/mm3 01/05/18 03:27 Lymphocytes # (Manual) 1.9 K/mm3 (1.2-5.4) 01/05/18 03:27 Abs React Lymphs (Man) 0.0 K/mm3 01/05/18 03:27 Monocytes # (Manual) 1.3 K/mm3 (0.0-0.8) H 01/05/18 03:27 Eosinophils # (Manual) 0.0 K/mm3 (0.0-0.4) 01/05/18 03:27 Basophils # (Manual) 0.1 K/mm3 (0.0-0.1) 01/05/18 03:27 Metamyelocytes # 0.0 K/mm3 01/05/18 03:27 Myelocytes # 0.1 K/mm3 01/05/18 03:27 Promyelocytes # 0.0 K/mm3 01/05/18 03:27 Blast Cells # 0.0 K/mm3 01/05/18 03:27 WBC Morphology Not Reportable 01/05/18 03:27 Hypersegmented Neuts Not Reportable 01/05/18 03:27 Hyposegmented Neuts Not Reportable 01/05/18 03:27 Hypogranular Neuts Not Reportable 01/05/18 03:27 Smudge Cells Not Reportable 01/05/18 03:27 Toxic Granulation Not Reportable 01/05/18 03:27 Toxic Vacuolation Not Reportable 01/05/18 03:27 Dohle Bodies Not Reportable 01/05/18 03:27 Pelger-Huet Anomaly Not Reportable 01/05/18 03:27 Mike Rods Not Reportable 01/05/18 03:27 Platelet Estimate Consistent w auto 01/05/18 03:27 Clumped Platelets Not Reportable 01/05/18 03:27 Plt Clumps, EDTA Not Reportable 01/05/18 03:27 Large Platelets Not Reportable 01/05/18 03:27 Giant Platelets Not Reportable 01/05/18 03:27 Platelet Satelliting Not Reportable 01/05/18 03:27 Plt Morphology Comment Not Reportable 01/05/18 03:27 RBC Morphology Not Reportable 01/05/18 03:27 Dimorphic RBCs Not Reportable 01/05/18 03:27 Polychromasia Not Reportable 01/05/18 03:27 Hypochromasia 1+ 01/05/18 03:27 Poikilocytosis Not Reportable 01/05/18 03:27 Anisocytosis Not Reportable 01/05/18 03:27 Microcytosis Not Reportable 01/05/18 03:27 Macrocytosis Not Reportable 01/05/18 03:27 Spherocytes Not Reportable 01/05/18 03:27 Pappenheimer Bodies Not Reportable 01/05/18 03:27 Sickle Cells Not Reportable 01/05/18 03:27 Target Cells Not Reportable 01/05/18 03:27 Tear Drop Cells Not Reportable 01/05/18 03:27 Ovalocytes Not Reportable 01/05/18 03:27 Helmet Cells Not Reportable 01/05/18 03:27 Venegas-Blawnox Bodies Not Reportable 01/05/18 03:27 [place] Rings Not Reportable 01/05/18 03:27 Jessica Cells Not Reportable 01/05/18 03:27 Bite Cells Not Reportable 01/05/18 03:27 Crenated Cell Not Reportable 01/05/18 03:27 Elliptocytes Not Reportable 01/05/18 03:27 Acanthocytes (Spur) Not Reportable 01/05/18 03:27 Rouleaux Not Reportable 01/05/18 03:27 Hemoglobin C Crystals Not Reportable 01/05/18 03:27 Schistocytes Not Reportable 01/05/18 03:27 Malaria parasites Not Reportable 01/05/18 03:27 [place] Bodies Not Reportable 01/05/18 03:27 Hem Pathologist Commnt No 01/05/18 03:27 PT 13.7 Sec. (12.2-14.9) 01/04/18 16:51 INR 1.00 (0.87-1.13) 01/04/18 16:51 APTT 25.2 Sec. (24.2-36.6) 01/04/18 16:51 Sodium 143 mmol/L (137-145) 01/05/18 03:27 Potassium 3.6 mmol/L (3.6-5.0) 01/05/18 03:27 Chloride 101.1 mmol/L (98-107) 01/05/18 03:27 Carbon Dioxide 30 mmol/L (22-30) D 01/05/18 03:27 Anion Gap 16 mmol/L 01/05/18 03:27 BUN 12 mg/dL (9-20) 01/05/18 03:27 Creatinine 0.5 mg/dL (0.8-1.5) L 01/05/18 03:27 Estimated GFR > 60 ml/min 01/05/18 03:27 BUN/Creatinine Ratio 24 % 01/05/18 03:27 Glucose 133 mg/dL (75-100) H 01/05/18 03:27 POC Glucose 123 (70-105) H 01/05/18 05:53 Calcium 9.0 mg/dL (8.4-10.2) 01/05/18 03:27 Magnesium 1.90 mg/dL (1.7-2.3) 01/04/18 16:51 Total Bilirubin 0.70 mg/dL (0.1-1.2) 01/04/18 16:51 AST 16 units/L (5-40) 01/04/18 16:51 ALT 20 units/L (7-56) 01/04/18 16:51 Alkaline Phosphatase 73 units/L (35-129) 01/04/18 16:51 Total Protein 7.9 g/dL (6.3-8.2) 01/04/18 16:51 Albumin 4.4 g/dL (3.9-5) 01/04/18 16:51 Albumin/Globulin Ratio 1.3 % 01/04/18 16:51 Lipase 12 units/L (13-60) L 01/04/18 16:51 Urine Color Yellow (Yellow) 01/05/18 05:32 Urine Turbidity Clear (Clear) 01/05/18 05:32 Urine pH 9.0 (5.0-7.0) H 01/05/18 05:32 Ur Specific [place] > 1.059 (1.003-1.030) H 01/05/18 05:32 Urine Protein 100 mg/dl mg/dL (Negative) 01/05/18 05:32 Urine Glucose (UA) Neg mg/dL (Negative) 01/05/18 05:32 Urine Ketones 20 mg/dL (Negative) 01/05/18 05:32 Urine Blood Neg (Negative) 01/05/18 05:32 Urine Nitrite Neg (Negative) 01/05/18 05:32 Urine Bilirubin Neg (Negative) 01/05/18 05:32 Urine Urobilinogen < 2.0 mg/dL (<2.0) 01/05/18 05:32 Ur Leukocyte Esterase Neg (Negative) 01/05/18 05:32 Urine WBC (Auto) < 1.0 /HPF (0.0-6.0) 01/05/18 05:32 Urine RBC (Auto) 2.0 /HPF (0.0-6.0) 01/05/18 05:32 Urine Mucus Few /HPF 01/05/18 05:32 Urine Opiates Screen Presumptive negative 01/05/18 05:32 Urine Methadone Screen Presumptive negative 01/05/18 05:32 Ur Barbiturates Screen Presumptive negative 01/05/18 05:32 Ur Phencyclidine Scrn Presumptive negative 01/05/18 05:32 Ur Amphetamines Screen Presumptive positive 01/05/18 05:32 U Benzodiazepines Scrn Presumptive negative 01/05/18 05:32 Urine Cocaine Screen Presumptive negative 01/05/18 05:32 U Marijuana (THC) Screen Presumptive negative 01/05/18 05:32 Drugs of Abuse Note Disclamer 01/05/18 05:32 Blood Type O POSITIVE 01/04/18 16:51 Antibody Screen Negative 01/04/18 16:51
[2018-01-07] MEDS ORDERED: VANCOMYCIN/0.45 NS 1 GM/250 ML 1 GM/250 ML BAG IV SCH (17:00)
--- NOTE | 2018-01-07 17:12 | Discharge Summary ---
Providers - Providers Date of Admission: 01/04/18 23:15 Date of discharge: 01/07/18 Attending physician: VENITA LIRIANO 01/04/18 21:36 Consult to Physician [CONS] Urgent Comment: Consulting Provider: LORETTA KRAFT Physician Instructions: Reason For Exam: PUD, coffee ground emesis Primary care physician: KORI GRIER Hospitalization Reason for admission: coffee-ground emesis Condition: Stable Pertinent studies: -- Upper GI series; moderate mucosal irregularities in the distal stomach and duodenal bulb possible mass or peptic ulcer --s/p EGD;severe esophagitis (white mucosa in mid-lower third with erosions in proximal esophagus) biopsied, erosive gastritis (biopsied), large cratered duodenal bulb ucer w/o bleeding stigmata. No gastric outlet obstruction CT abdomen ; admitted for thickening distal esophagus possible esophagitis Distended stomach with some debris, thickened appearance of the maier of gastric antrum possible ulcerated the duodenal bulb CT head without contrast; no acute intracranial abnormality, embedded metallic BB in the medial soft tissue of the right orbit Patient advised to follow with primary care physician for further evaluation Hospital course: Very pleasant 40-year-old male patient with significant past medical history of duodenal ulcer was admitted through emergency room with coffee-ground emesis Patient was admitted to the hospital symptomatically managed Evaluated by GI, underwent extensive workup with CT abdomen, upper GI series, subsequently EGD, Findings of which are mentioned above Patient also has history of substance abuse, counseling done strongly advised to quit tobacco use and recreational drug use, Advised to avoid NSAIDs Today patient is comfortable in bed, no new episodes of GI bleeding H&H stable, vital signs stable Physical examination prior to discharge is unremarkable Hemodynamically and clinically stable for discharge Follow-up with primary care physician, GI for repeat EGD and further evaluation as needed Discharge Diagnosis; Upper GI bleeding Erosive gastritis Erosive esophagitis Duodenal ulcer with bleeding stigmata Substance abuse Tobacco use Metallic BB in the medial soft tissue of the right orbit [incidental finding on CT head] check with primary care physician Disposition: DC-01 TO HOME OR SELFCARE Time spent for discharge: 33 min Core Measure Documentation - Palliative Care Palliative Care/ Comfort Measures: Not Applicable - Core Measures Any of the following diagnoses?: none Exam - Constitutional Vitals: Temp Pulse Resp BP Pulse Ox 98.1 F 93 H 16 101/65 98 01/07/18 13:45 01/07/18 14:15 01/07/18 14:15 01/07/18 14:15 01/07/18 14:15 General appearance: Present: no acute distress, well-nourished - EENT Eyes: Present: PERRL, EOM intact - Neck Neck: Present: supple, normal ROM - Respiratory Respiratory effort: normal Respiratory: negative: rales, rhonchi, wheezing - Cardiovascular Rhythm: regular Heart Sounds: Present: S1 & S2 - Extremities Extremities: no ischemia, No edema Peripheral Pulses: within normal limits - Abdominal General gastrointestinal: Present: soft, non-tender, non-distended, normal bowel sounds - Integumentary Integumentary: Present: clear, warm - Musculoskeletal Musculoskeletal: strength equal bilaterally - Psychiatric Psychiatric: appropriate mood/affect, cooperative - Neurologic Neurologic: CNII-XII intact, moves all extremities Plan Activity: no restrictions Diet: advance as tolerated, other (soft diet ) Special Instructions: smoking cessation Additional Instructions: Dvised to quit recreational drug use. advised to avoid NSAID group of medications. If you noyice new episodes of bleeding, contact MD or go to ER. Metallic BB in the medial soft tissue of the right orbit[incidental finding on CT head] check with primary care physician Follow up with: KORI GRIER MD [Primary Care Provider] - 3-5 Days BRONSON HAHN MD [Staff Physician] - 7 Days Prescriptions: Pantoprazole [Protonix] 40 mg PO BID #60 tablet
== END 2018-01-07 19:30 | disposition home or self-care (01) | DRG 380 ==
LOC: ED 15:00 → 4A 23:15
PROVIDERS: ADMIT Internal Medicine; ATTEND Internal Medicine
PROC: 0DB98ZX Excision of Duodenum, Via Natural or Artificial Opening Endoscopic, Diagnostic (ICD-10-PCS; principal; 2018-01-07)
PROC: 0DB78ZX Excision of Stomach, Pylorus, Via Natural or Artificial Opening Endoscopic, Diagnostic (ICD-10-PCS; 2018-01-07)
PROC: 0DB38ZX Excision of Lower Esophagus, Via Natural or Artificial Opening Endoscopic, Diagnostic (ICD-10-PCS; 2018-01-07)
DX: K22.11 Ulcer of esophagus with bleeding (principal); G93.41 Metabolic encephalopathy; R65.10 Systemic inflammatory response syndrome (SIRS) of non-infectious origin without acute organ dysfunction; D72.829 Elevated white blood cell count, unspecified; K29.01 Acute gastritis with bleeding; K26.4 Chronic or unspecified duodenal ulcer with hemorrhage; R93.3 Abnormal findings on diagnostic imaging of other parts of digestive tract; F17.200 Nicotine dependence, unspecified, uncomplicated; E87.6 Hypokalemia; Z87.11 Personal history of peptic ulcer disease
CPT/HCPCS: 36415; 70460; 71045; 74177; 74245; 80048; 80053; 80307; 81001; 82271; 82962; 83690; 83735; 85007; 85014; 85018; 85025; 85610; 85730; 86850; 86900; 86901; 87040; 87086; 88305; 88342; 93005; 93010; 96361; 96365; 96367; 96375; 96376; C9113; J0696; J2270; J2405; J2704; J3370; J3480; J7030; J7050; Q9967

== ENCOUNTER 2018-01-15 16:18 | Inpatient (IN) | payer OTHER ==
[2018-01-15 16:48] LABS: Hematocrit 33.2 % (35.5-45.6); Hemoglobin 10.4 gm/dl (11.8-15.2); Mean Corpuscular HGB Conc 31 % (32-34); Mean Corpuscular Volume 72 fl (84-94); Platelet Count 569 K/mm3 (140-440); Red Blood Count 4.62 M/mm3 (3.65-5.03); Red Cell Distribution Width 18.2 % (13.2-15.2)
[2018-01-15 16:53] LABS: Mean Corpuscular Hemoglobin 23 pg (28-32)
[2018-01-15 16:54] LABS: Alanine Aminotransferase 6 units/L (7-56); Albumin 3.4 g/dL (3.9-5); BUN/Creatinine Ratio 41; Blood Urea Nitrogen 29 mg/dL (9-20); Calcium 9.5 mg/dL (8.4-10.2); Hemolysis Index 1; Lipase 48 units/L (13-60)
[2018-01-15 17:33] LABS: Band Neutrophils # (Manual) 1.3 K/mm3; Basophils % (Manual) 0 % (0.0-1.8); Eosinophils % (Manual) 0 % (0.0-4.3); Total Cells Counted 100
[2018-01-15 17:34] LABS: Hypochromasia 1+; Platelet Estimate Appears Increased; Poikilocytosis Few
[2018-01-15] MEDS ORDERED: ZOFRAN IV ONE (20:25)
[2018-01-15] MEDS ORDERED: NACL 0.9% 1000 ML 1,000 ML IV ONE (20:26)
[2018-01-15] MEDS ORDERED: PROTONIX IV ONE (21:25)
[2018-01-15] MEDS: PROTONIX 80 MG in NACL 0.9% 100 ML IV SCH (21:44)
--- NOTE | 2018-01-15 21:49 | Cat Scan Report ---
FINAL REPORT EXAM: CT ABDOMEN PELVIS WO CON HISTORY: colitis TECHNIQUE: Standard unenhanced CT of the abdomen and pelvis. Coronal and sagittal reconstruction was also performed. PRIORS: CT a/P 01/04/2018 FINDINGS: The stomach is distended and filled with fluid. There is narrowing of the duodenal bulb and descending duodenum with surrounding inflammation in the adjacent fat (axial image 61, coronal image 95). Findings may be consistent with duodenitis or focal area of ulceration. No evidence for perforation or abscess is seen. This may be causing mild gastric outlet obstruction. There are numerous loops of fluid-filled distended loops of small bowel particularly in the left side of the abdomen, a new finding. No definite transition zone is seen. Findings suggest underlying ileus. Stool fills the proximal half of the colon. Within the abdomen, the liver, spleen, pancreas, gallbladder, adrenal glands, and kidneys are unremarkable. No evidence for retroperitoneal or pelvic lymphadenopathy is seen. No soft tissue mass, fluid collection, or free air is seen within the abdomen or pelvis. The appendix is normal. Within the pelvis, the bladder is unremarkable. The prostate is normal. No evidence for mass or lymphadenopathy is seen in the pelvis. Images through the upper abdomen include the lung bases which are expanded and clear. There is mild concentric wall thickening of the distal esophagus (axial image 4) which may be due to a hiatal hernia or esophagitis. Neoplasm is not entirely excluded. Bony structures show no focal abnormalities and are intact. IMPRESSION: 1. Mild narrowing in the duodenal bulb and descending duodenum with surrounding inflammation. Findings suggest duodenitis or focal area of ulceration. No evidence for perforation or abscess is 2. Gastric distension filled with fluid. This may be due to mild partial gastric outlet obstruction due to the presence of the inflammation duodenum 3. Numerous dilated loops of small bowel which are fluid-filled. Findings suggest ileus. 4. Eccentric wall thickening of the distal esophagus suggesting hiatal hernia, esophagitis, or neoplasm.
--- NOTE | 2018-01-15 21:49 | Emergency Department Report ---
ED N/V/D HPI - General Chief complaint: Nausea/Vomiting/Diarrhea Stated complaint: NAUSEA/VOMITING Time Seen by Provider: 01/15/18 20:11 Source: patient, EMS Mode of arrival: Wheelchair Limitations: No Limitations - History of Present Illness Initial comments: Patient said for about a week now he has been having nausea vomiting of blood. He said he is also been having diarrhea. He is also complaining of left upper and left lower quadrant abdominal pain. The pain is over moderate to severe intensity and nonradiating with no aggravating or relieving factor. Patient also feels weak. Patient was just discharged about a week ago when he had an upper endoscopy which showed an ulcer. MD complaint: nausea, vomiting, diarrhea, abdominal pain -: Gradual Description of Vomiting: bloody Description of Diarrhea: water Associated Abdominal Pain: Yes Location: LUQ, LLQ Radiation: none Severity: moderate, severe Quality: sharp Consistency: constant Improves with: none Worsens with: none Associated Symptoms: nausea/vomiting, weakness - Related Data Previous Rx's Medication Instructions Recorded Last Taken Type Pantoprazole [Protonix] 40 mg PO BID #60 tablet 01/07/18 Unknown Rx Allergies Allergy/AdvReac Type Severity Reaction Status Date / Time No Known Allergies Allergy Verified 01/15/18 16:20 ED Review of Systems ROS: Stated complaint: NAUSEA/VOMITING Other details as noted in HPI Comment: All other systems reviewed and negative ED Past Medical Hx - Past Medical History Hx Diabetes: No (PREVIOUS HX BUT LOST WEIGHT AND DM RESOLVED) Additional medical history: Stomach ulcer - Social History Smoking Status: Current Every Day Smoker Substance Use Type: Methamphetamines - Medications Home Medications: Home Medications Medication Instructions Recorded Confirmed Last Taken Type Pantoprazole [Protonix] 40 mg PO BID #60 tablet 01/07/18 Unknown Rx ED Physical Exam - General Limitations: No Limitations General appearance: alert, in no apparent distress - Head Head exam: Present: atraumatic, normocephalic - Eye Eye exam: Present: normal appearance. Absent: PERRL - ENT ENT exam: Present: mucous membranes moist - Neck Neck exam: Present: normal inspection - Respiratory Respiratory exam: Present: normal lung sounds bilaterally. Absent: respiratory distress - Cardiovascular Cardiovascular Exam: Present: regular rate, normal rhythm. Absent: systolic murmur, diastolic murmur, rubs, gallop - GI/Abdominal GI/Abdominal exam: Present: soft, tenderness (epigastric tenderness.), normal bowel sounds. Absent: rebound - Rectal Rectal exam: Present: deferred - Extremities Exam Extremities exam: Present: normal inspection - Back Exam Back exam: Present: normal inspection. Absent: tenderness - Neurological Exam Neurological exam: Present: alert, oriented X3 - Psychiatric Psychiatric exam: Present: normal affect, normal mood - Skin Skin exam: Present: warm, dry, intact, normal color. Absent: rash ED Course Vital Signs 01/15/18 01/15/18 01/15/18 16:20 22:04 22:07 Temperature 98.3 F 99.4 F Pulse Rate 110 H Respiratory 18 18 Rate Blood Pressure 110/69 O2 Sat by Pulse 97 99 Oximetry ED Medical Decision Making - Lab Data Result diagrams: 01/15/18 16:30 01/15/18 16:30 - Radiology Data Radiology results: report reviewed - Medical Decision Making i spoke to Dr Griffith who as accepted the patient for admission Critical care attestation.: If time is entered above; I have spent that time in minutes in the direct care of this critically ill patient, excluding procedure time. ED Disposition Clinical Impression: Upper GI bleed Disposition: OP ADMIT IP TO THIS HOSP Is pt being admited?: Yes Does the pt Need Aspirin: No Condition: Stable Referrals: PRIMARY CARE, [Primary Care Provider] - 3-5 Days Time of Disposition: 23:03 Print Language: OCCITAN
--- NOTE | 2018-01-15 23:52 | History and Physical Report ---
History of Present Illness Date of examination: 01/15/18 History of present illness: 42 -year-old man with history of duodenal ulcer comes to the emergency room complaining of coffee-ground emesis. he also complained of left side abdominal pain which she described as sharp, dull pain, intermittent in nature, unable to say how long it last for, intensity 4/10, no radiation, he can identify exacerbating or relieving factors. No NSAID use. he was discharged from the hospital on January 07, he was admitted for GIB, his endoscopy showed duodenal ulcer, severe esophagitis and erosive gastritis. An NG tube was placed in the emergency room Review of systems Constitutional: no weight loss, chills Ears, eyes, nose, mouth and throat: no nasal congestion, no nasal discharge, no sinus pressure, no vision change, no red eye. Neck: No neck pain or rigidity. Cardiovascular: no chest pain, palpitations Respiratory: No cough, shortness of breath Gastrointestinal: no hematochezia Genitourinary : no dysuria, frequency , no hematuria Musculoskeletal: no joint swelling or muscle ache Integumentary: no rash, no pruritis Neurological: no parathesias, no numbness, no focal weakness Endocrine: no cold or heat intolerance, no polyuria or polydipsia Hematologic/Lymphatic: no easy bruising, no easy bleeding, no gland swelling Allergic/Immunologic: no urticaria, no angioedema. PAST MEDICAL HISTORY: Duodenal ulcer PAST SURGICAL HISTORY: Unknown SOCIAL HISTORY: Unknown FAMILY HISTORY: Unknown Medications and Allergies Allergies Allergy/AdvReac Type Severity Reaction Status Date / Time No Known Allergies Allergy Verified 01/15/18 16:20 Home Medications Medication Instructions Recorded Confirmed Last Taken Type Pantoprazole [Protonix] 40 mg PO BID #60 tablet 01/07/18 Unknown Rx Active Meds: Active Medications Pantoprazole Sodium 80 mg/ (Sodium Chloride) 100 mls @ 10 mls/hr IV Q10H CULLEN Last Admin: 01/15/18 21:44 Dose: 8 mg/hr, 10 mls/hr Exam - Physical Exam Narrative exam: Gen. appearance: Patient lying in bed, no apparent distress HEENT: Normocephalic, atraumatic, pupils equally round and reactive to light, extraocular movement intact, and no sclericterus,. No JVD or thyromegaly or nodule,neck supple, no carotid bruit ,mucous membranes moist, no exudate or erythema Heart: S1, S2, regular rate and rhythm Lungs: Clear to auscultation bilaterally, breathing comfortable Abdomen: Positive bowel sounds, nontender, nondistended, no organomegaly Extremity: No edema, cyanosis, clubbing Skin: No rash, nodules, warm, dry Neuro: Oriented 3, cranial nerves II-12 intact, speech is fluent, motor and sensory intact - Constitutional Vitals: Temp Pulse Resp BP Pulse Ox 99.4 F 110 H 18 110/69 99 01/15/18 22:04 01/15/18 16:20 01/15/18 22:07 01/15/18 16:20 01/15/18 22:07 Results - Labs CBC & Chem 7: 01/16/18 01:38 01/15/18 16:30 Labs: Abnormal lab results 01/15/18 01/15/18 01/15/18 Range/Units 16:30 16:30 20:23 WBC 13.3 H (4.5-11.0) K/mm3 Hgb 10.4 L (11.8-15.2) gm/dl Hct 33.2 L (35.5-45.6) % MCV 72 L (84-94) fl MCH 23 L (28-32) pg MCHC 31 L (32-34) % RDW 18.2 H (13.2-15.2) % Plt Count 569 H (140-440) K/mm3 Monocytes % (Manual) 11.0 H (0.0-7.3) % Seg Neutrophils # Man 8.4 H (1.8-7.7) K/mm3 Monocytes # (Manual) 1.5 H (0.0-0.8) K/mm3 Sodium 133 L (137-145) mmol/L Potassium 3.2 L (3.6-5.0) mmol/L Chloride 91.8 L (98-107) mmol/L BUN 29 H (9-20) mg/dL Creatinine 0.7 L (0.8-1.5) mg/dL Glucose 174 H (75-100) mg/dL Lactic Acid 2.10 H* (0.7-2.0) mmol/L ALT 6 L (7-56) units/L Albumin 3.4 L (3.9-5) g/dL Assessment and Plan Assessment GI bleed most likely secondary to rebleed of his duodenal ulcer Possible gastric outlet obstruction Plan Admit to medicine Start IV fluids, check serial hemoglobin, consult GI Start Protonix drip DVT prophylaxis
[2018-01-16] MEDS ORDERED: ZOFRAN IV PRN (00:04)
[2018-01-16] MEDS ORDERED: TYLENOL PO PRN (00:04)
[2018-01-16] MEDS ORDERED: SODIUM CHLORIDE FLUSH SYRINGE 10 ML IV PRN (00:04)
[2018-01-16] MEDS: NACL 0.9% 1000 ML 1,000 ML IV SCH ×3 (01:44→17:46)
[2018-01-16 01:59] LABS: Hematocrit 30.4 % (35.5-45.6); Hemoglobin 9.6 gm/dl (11.8-15.2)
[2018-01-16] MEDS: HABITROL TD SCH ×2 (02:31→10:26)
[2018-01-16 05:23] LABS: Bacteria,Urine 1+ /HPF (Negative); Bilirubin,Urine NEG (Negative); Blood,Urine NEG (Negative); Color,Urine Yellow (Yellow); Protein,Urine <15 mg/dL mg/dL (Negative); Urobilinogen,Urine < 2.0 mg/dL (<2.0); WBC,Urine < 1.0 /HPF (0.0-6.0)
[2018-01-16] MEDS: PROTONIX 80 MG in NACL 0.9% 100 ML IV SCH ×2 (08:25→16:54)
[2018-01-16 08:52] LABS: Hematocrit 29.6 % (35.5-45.6); Hemoglobin 9.7 gm/dl (11.8-15.2)
[2018-01-16] MEDS: SODIUM CHLORIDE FLUSH SYRINGE 10 ML IV SCH ×2 (10:30→22:45)
--- NOTE | 2018-01-16 12:27 | Progress Note ---
Assessment and Plan Assessment and plan: 42 -year-old man with history of duodenal ulcer comes to the emergency room complaining of coffee-ground emesis. he also complained of left side abdominal pain which she described as sharp, dull pain, intermittent in nature, unable to say how long it last for, intensity 4/10, no radiation, he can identify exacerbating or relieving factors. No NSAID use. he was discharged from the hospital on January 07, he was admitted for GIB, his endoscopy showed duodenal ulcer, severe esophagitis and erosive gastritis. An NG tube was placed in the emergency room. Per hx, pt underwent an EGD by Dr. Vickers on 01/07 showing a 4-5 cm duodenal ulcer with no stigmata, and severe distal esophagitis GI bleed most likely secondary to rebleed of his duodenal ulcer Hypokalemia Leukocytosis Possible gastric outlet obstruction Methamphetamine dependance Tobacco dependance Plan supportive care await GI input. Extensively counselling on need to the patient on need to quit substance abuse and methamphetamin. He verbalized understanding Monitor H/H, transfuse as needed DVT/GI PROPHY History Interval history: Patient seen and examined in no acute distress. Resting comfortably. Denies chest pain, abdominal pain, nausea vomiting, melanotic stool. At the time of my evaluation the patient still had a NGT in place. Hospitalist Physical - Constitutional Vitals: Temp Pulse Resp BP Pulse Ox 98.2 F 99 H 17 117/72 97 01/16/18 09:06 01/16/18 10:00 01/16/18 10:00 01/16/18 09:06 01/16/18 10:00 General appearance: Present: no acute distress, other (disheveled appearing) - EENT Eyes: Present: PERRL, EOM intact ENT: hearing intact, clear oral mucosa - Neck Neck: Present: supple, normal ROM - Respiratory Respiratory effort: normal Respiratory: bilateral: CTA - Cardiovascular Rhythm: regular Heart Sounds: Present: S1 & S2 - Extremities Extremities: no ischemia, pulses intact, pulses symmetrical, No edema, normal temperature, normal color, Full ROM Peripheral Pulses: within normal limits - Abdominal General gastrointestinal: soft, non-tender, non-distended, normal bowel sounds - Integumentary Integumentary: Present: warm, dry, rash - Psychiatric Psychiatric: appropriate mood/affect - Neurologic Neurologic: CNII-XII intact, moves all extremities - Allied Health Allied health notes reviewed: nursing Results - Labs CBC & Chem 7: 01/16/18 20:14 01/15/18 16:30 Labs: Laboratory Last Values WBC 13.3 K/mm3 (4.5-11.0) H 01/15/18 16:30 RBC 4.62 M/mm3 (3.65-5.03) 01/15/18 16:30 Hgb 9.7 gm/dl (11.8-15.2) L 01/16/18 08:39 Hct 29.6 % (35.5-45.6) L 01/16/18 08:39 MCV 72 fl (84-94) L 01/15/18 16:30 MCH 23 pg (28-32) L 01/15/18 16:30 MCHC 31 % (32-34) L 01/15/18 16:30 RDW 18.2 % (13.2-15.2) H 01/15/18 16:30 Plt Count 569 K/mm3 (140-440) H 01/15/18 16:30 Add Manual Diff Complete 01/15/18 16:30 Total Counted 100 01/15/18 16:30 Seg Neuts % (Manual) 63.0 % (40.0-70.0) 01/15/18 16:30 Band Neutrophils % 10.0 % 01/15/18 16:30 Lymphocytes % (Manual) 14.0 % (13.4-35.0) 01/15/18 16:30 Reactive Lymphs % (Man) 2.0 % 01/15/18 16:30 Monocytes % (Manual) 11.0 % (0.0-7.3) H 01/15/18 16:30 Eosinophils % (Manual) 0 % (0.0-4.3) 01/15/18 16:30 Basophils % (Manual) 0 % (0.0-1.8) 01/15/18 16:30 Metamyelocytes % 0 % 01/15/18 16:30 Myelocytes % 0 % 01/15/18 16:30 Promyelocytes % 0 % 01/15/18 16:30 Blast Cells % 0 % 01/15/18 16:30 Nucleated RBC % Not Reportable 01/15/18 16:30 Seg Neutrophils # Man 8.4 K/mm3 (1.8-7.7) H 01/15/18 16:30 Band Neutrophils # 1.3 K/mm3 01/15/18 16:30 Lymphocytes # (Manual) 1.9 K/mm3 (1.2-5.4) 01/15/18 16:30 Abs React Lymphs (Man) 0.3 K/mm3 01/15/18 16:30 Monocytes # (Manual) 1.5 K/mm3 (0.0-0.8) H 01/15/18 16:30 Eosinophils # (Manual) 0.0 K/mm3 (0.0-0.4) 01/15/18 16:30 Basophils # (Manual) 0.0 K/mm3 (0.0-0.1) 01/15/18 16:30 Metamyelocytes # 0.0 K/mm3 01/15/18 16:30 Myelocytes # 0.0 K/mm3 01/15/18 16:30 Promyelocytes # 0.0 K/mm3 01/15/18 16:30 Blast Cells # 0.0 K/mm3 01/15/18 16:30 WBC Morphology Not Reportable 01/15/18 16:30 Hypersegmented Neuts Not Reportable 01/15/18 16:30 Hyposegmented Neuts Not Reportable 01/15/18 16:30 Hypogranular Neuts Not Reportable 01/15/18 16:30 Smudge Cells Not Reportable 01/15/18 16:30 Toxic Granulation Not Reportable 01/15/18 16:30 Toxic Vacuolation Not Reportable 01/15/18 16:30 Dohle Bodies Not Reportable 01/15/18 16:30 Pelger-Huet Anomaly Not Reportable 01/15/18 16:30 Mike Rods Not Reportable 01/15/18 16:30 Platelet Estimate Appears increased 01/15/18 16:30 Clumped Platelets Not Reportable 01/15/18 16:30 Plt Clumps, EDTA Not Reportable 01/15/18 16:30 Large Platelets Not Reportable 01/15/18 16:30 Giant Platelets Not Reportable 01/15/18 16:30 Platelet Satelliting Not Reportable 01/15/18 16:30 Plt Morphology Comment Not Reportable 01/15/18 16:30 RBC Morphology Not Reportable 01/15/18 16:30 Dimorphic RBCs Not Reportable 01/15/18 16:30 Polychromasia Not Reportable 01/15/18 16:30 Hypochromasia 1+ 01/15/18 16:30 Poikilocytosis Few 01/15/18 16:30 Anisocytosis Not Reportable 01/15/18 16:30 Microcytosis 1+ 01/15/18 16:30 Macrocytosis Not Reportable 01/15/18 16:30 Spherocytes Not Reportable 01/15/18 16:30 Pappenheimer Bodies Not Reportable 01/15/18 16:30 Sickle Cells Not Reportable 01/15/18 16:30 Target Cells Not Reportable 01/15/18 16:30 Tear Drop Cells Not Reportable 01/15/18 16:30 Ovalocytes Not Reportable 01/15/18 16:30 Helmet Cells Not Reportable 01/15/18 16:30 Venegas-[place] Bodies Not Reportable 01/15/18 16:30 Logan Rings Not Reportable 01/15/18 16:30 Jessica Cells Not Reportable 01/15/18 16:30 Bite Cells Not Reportable 01/15/18 16:30 Crenated Cell Not Reportable 01/15/18 16:30 Elliptocytes Few 01/15/18 16:30 Acanthocytes (Spur) Not Reportable 01/15/18 16:30 Rouleaux Not Reportable 01/15/18 16:30 Hemoglobin C Crystals Not Reportable 01/15/18 16:30 Schistocytes Not Reportable 01/15/18 16:30 Malaria parasites Not Reportable 01/15/18 16:30 Kodi Bodies Not Reportable 01/15/18 16:30 Hem Pathologist Commnt No 01/15/18 16:30 Sodium 133 mmol/L (137-145) L 01/15/18 16:30 Potassium 3.2 mmol/L (3.6-5.0) L 01/15/18 16:30 Chloride 91.8 mmol/L (98-107) L 01/15/18 16:30 Carbon Dioxide 30 mmol/L (22-30) 01/15/18 16:30 Anion Gap 14 mmol/L 01/15/18 16:30 BUN 29 mg/dL (9-20) H 01/15/18 16:30 Creatinine 0.7 mg/dL (0.8-1.5) L 01/15/18 16:30 Estimated GFR > 60 ml/min 01/15/18 16:30 BUN/Creatinine Ratio 41 % 01/15/18 16:30 Glucose 174 mg/dL (75-100) H 01/15/18 16:30 Lactic Acid 1.00 mmol/L (0.7-2.0) 01/15/18 22:26 Calcium 9.5 mg/dL (8.4-10.2) 01/15/18 16:30 Total Bilirubin 0.40 mg/dL (0.1-1.2) 01/15/18 16:30 AST 8 units/L (5-40) 01/15/18 16:30 ALT 6 units/L (7-56) L 01/15/18 16:30 Alkaline Phosphatase 62 units/L (35-129) 01/15/18 16:30 Total Protein 6.9 g/dL (6.3-8.2) 01/15/18 16:30 Albumin 3.4 g/dL (3.9-5) L 01/15/18 16:30 Albumin/Globulin Ratio 1.0 % 01/15/18 16:30 Lipase 48 units/L (13-60) 01/15/18 16:30 Urine Color Yellow (Yellow) 01/15/18 05:13 Urine Turbidity Clear (Clear) 01/15/18 05:13 Urine pH 5.0 (5.0-7.0) 01/15/18 05:13 Ur Specific [place] 1.014 (1.003-1.030) 01/15/18 05:13 Urine Protein <15 mg/dl mg/dL (Negative) 01/15/18 05:13 Urine Glucose (UA) Neg mg/dL (Negative) 01/15/18 05:13 Urine Ketones Neg mg/dL (Negative) 01/15/18 05:13 Urine Blood Neg (Negative) 01/15/18 05:13 Urine Nitrite Neg (Negative) 01/15/18 05:13 Urine Bilirubin Neg (Negative) 01/15/18 05:13 Urine Urobilinogen < 2.0 mg/dL (<2.0) 01/15/18 05:13 Ur Leukocyte Esterase Neg (Negative) 01/15/18 05:13 Urine WBC (Auto) < 1.0 /HPF (0.0-6.0) 01/15/18 05:13 Urine RBC (Auto) 2.0 /HPF (0.0-6.0) 01/15/18 05:13 U Epithel Cells (Auto) < 1.0 /HPF (0-13.0) 01/15/18 05:13 Urine Bacteria (Auto) 1+ /HPF (Negative) 01/15/18 05:13 Blood Type O POSITIVE 01/15/18 20:23 Antibody Screen Negative 01/15/18 20:23
[2018-01-16 13:01] LABS: Hematocrit 30.9 % (35.5-45.6); Hemoglobin 9.8 gm/dl (11.8-15.2)
--- NOTE | 2018-01-16 14:14 | Consultation ---
History of Present Illness - Reason for Consult Consult date: 01/16/18 GI bleed - History of Present Illness 42 yo WM admitted with hematemesis, with 1 wk hx of N/V. Pt well-known to our service. He was just hospitalized from 01/04 to 01/07 here for the same problem, and underwent an EGD by Dr. Vickers on 01/07 showing a 4-5 cm duodenal ulcer with no stigmata, and severe distal esophagitis. He was discharged on daily PPI, which he still takes. He had a similar endoscopy and presentation in 09/2017. He had L sided abd pain which is resolved. He denies melena or hematochezia. His Hgb has gone from 10.4 on discharge on 01/07, to 9.7 now. He continues to use crystal meth, and smoke, though he states he is trying to quit. Of note, when I walked in to examine him, he had just finished a regular lunch, and removed his NGT. Currently, he feels well. Past History Past Medical History: other (Duodenal ulcer) Past Surgical History: No surgical history Social history: smoking, other (snorts crystal meth) Family history: no significant family history Medications and Allergies Allergies Allergy/AdvReac Type Severity Reaction Status Date / Time No Known Allergies Allergy Verified 01/15/18 16:20 Home Medications Medication Instructions Recorded Confirmed Last Taken Type Pantoprazole [Protonix] 40 mg PO BID #60 tablet 01/07/18 01/16/18 Unknown Rx Active Meds: Active Medications Acetaminophen (Tylenol) 650 mg PO Q4H PRN PRN Reason: Pain MILD(1-3)/Fever >100.5/DIANE Pantoprazole Sodium 80 mg/ (Sodium Chloride) 100 mls @ 10 mls/hr IV Q10H CULLEN Last Admin: 01/16/18 08:25 Dose: 8 mg/hr, 10 mls/hr Sodium Chloride (Nacl 0.9% 1000 Ml) 1,000 mls @ 125 mls/hr IV DIRECT CULLEN Last Admin: 01/16/18 10:30 Dose: 125 mls/hr Nicotine (Habitrol) 14 mg TD QDAY CULLEN Last Admin: 01/16/18 10:26 Dose: 14 mg Ondansetron HCl (Zofran) 4 mg IV Q4H PRN PRN Reason: Nausea And Vomiting Sodium Chloride (Sodium Chloride Flush Syringe 10 Ml) 10 ml IV BID CULLEN Last Admin: 01/16/18 10:30 Dose: 10 ml Sodium Chloride (Sodium Chloride Flush Syringe 10 Ml) 10 ml IV PRN PRN PRN Reason: LINE FLUSH Review of Systems All systems: negative (as noted in HPI) Exam - Constitutional Vitals: Temp Pulse Resp BP Pulse Ox 97.9 F 99 H 18 112/76 97 01/16/18 11:50 01/16/18 10:00 01/16/18 11:50 01/16/18 11:50 01/16/18 10:00 General appearance: Present: no acute distress, disheveled - EENT Eyes: Present: PERRL, EOM intact ENT: hearing intact - Respiratory Respiratory effort: normal Respiratory: bilateral: CTA - Cardiovascular Rhythm: regular Heart Sounds: Present: S1 & S2 - Extremities Extremities: No edema - Abdominal General gastrointestinal: Present: soft, non-tender, normal bowel sounds Results - Labs CBC & Chem 7: 01/16/18 12:38 01/15/18 16:30 Labs: Abnormal lab results 01/15/18 01/15/18 01/15/18 Range/Units 16:30 16:30 20:23 WBC 13.3 H (4.5-11.0) K/mm3 Hgb 10.4 L (11.8-15.2) gm/dl Hct 33.2 L (35.5-45.6) % MCV 72 L (84-94) fl MCH 23 L (28-32) pg MCHC 31 L (32-34) % RDW 18.2 H (13.2-15.2) % Plt Count 569 H (140-440) K/mm3 Monocytes % (Manual) 11.0 H (0.0-7.3) % Seg Neutrophils # Man 8.4 H (1.8-7.7) K/mm3 Monocytes # (Manual) 1.5 H (0.0-0.8) K/mm3 Sodium 133 L (137-145) mmol/L Potassium 3.2 L (3.6-5.0) mmol/L Chloride 91.8 L (98-107) mmol/L BUN 29 H (9-20) mg/dL Creatinine 0.7 L (0.8-1.5) mg/dL Glucose 174 H (75-100) mg/dL Lactic Acid 2.10 H* (0.7-2.0) mmol/L ALT 6 L (7-56) units/L Albumin 3.4 L (3.9-5) g/dL 01/16/18 01/16/18 01/16/18 Range/Units 01:38 08:39 12:38 WBC (4.5-11.0) K/mm3 Hgb 9.6 L 9.7 L 9.8 L (11.8-15.2) gm/dl Hct 30.4 L 29.6 L 30.9 L (35.5-45.6) % MCV (84-94) fl MCH (28-32) pg MCHC (32-34) % RDW (13.2-15.2) % Plt Count (140-440) K/mm3 Monocytes % (Manual) (0.0-7.3) % Seg Neutrophils # Man (1.8-7.7) K/mm3 Monocytes # (Manual) (0.0-0.8) K/mm3 Sodium (137-145) mmol/L Potassium (3.6-5.0) mmol/L Chloride (98-107) mmol/L BUN (9-20) mg/dL Creatinine (0.8-1.5) mg/dL Glucose (75-100) mg/dL Lactic Acid (0.7-2.0) mmol/L ALT (7-56) units/L Albumin (3.9-5) g/dL Assessment and Plan Hematemesis - due to known severe distal ulcerative esophagitis most likely. Doubt related to bleeding from duodenal ulcer given lack of blood from rectum, and relatively stable H/H. - monitor H/H, and transfuse as needed. - have put back on clears, to monitor, and in case urgent endoscopy is required. - meantime, continue with PPI. - if pt persists in having severe disease, and cannot stop meth, or disease persists even with stopping meth and tobacco, may need to consider surgical management with antrectomy.
[2018-01-16 16:38] LABS: Hematocrit 30.4 % (35.5-45.6); Hemoglobin 9.4 gm/dl (11.8-15.2)
[2018-01-16 21:12] LABS: Hematocrit 29.6 % (35.5-45.6); Hemoglobin 9.2 gm/dl (11.8-15.2)
[2018-01-16] MEDS ORDERED: MORPHINE IV NR (23:55)
[2018-01-17] MEDS: NACL 0.9% 1000 ML 1,000 ML IV SCH (00:58)
[2018-01-17] MEDS: PROTONIX 80 MG in NACL 0.9% 100 ML IV SCH ×2 (02:39→15:34)
[2018-01-17 06:45] LABS: Basophils # (Auto) 0.1 K/mm3 (0.0-0.1); Basophils % (Auto) 0.8 % (0.0-1.8); Eosinophils # (Auto) 0.1 K/mm3 (0.0-0.4); Eosinophils % (Auto) 1.1 % (0.0-4.3); Hematocrit 27.9 % (35.5-45.6); Hemoglobin 9.1 gm/dl (11.8-15.2); Lymphocytes # (Auto) 1.8 K/mm3 (1.2-5.4); Lymphocytes % (Auto) 15.6 % (13.4-35.0); Mean Corpuscular HGB Conc 33 % (32-34); Mean Corpuscular Hemoglobin 23 pg (28-32); Mean Corpuscular Volume 72 fl (84-94); Monocytes # (Auto) 1.5 K/mm3 (0.0-0.8); Platelet Count 414 K/mm3 (140-440); Red Cell Distribution Width 18.3 % (13.2-15.2)
[2018-01-17 07:06] LABS: BUN/Creatinine Ratio 20; Blood Urea Nitrogen 10 mg/dL (9-20); Calcium 8.6 mg/dL (8.4-10.2); Hemolysis Index 1
[2018-01-17] MEDS ORDERED: K-DUR PO ONE (11:11)
[2018-01-17] MEDS: HABITROL TD SCH (11:31)
[2018-01-17] MEDS: SODIUM CHLORIDE FLUSH SYRINGE 10 ML IV SCH (11:34)
--- NOTE | 2018-01-17 11:54 | Gastroenterology Progress Note ---
<MARIIA BENTON - Last Filed: 01/17/18 11:54> Assessment and Plan 1.Hematemesis -HGB 9.1-stable -continue to monitor H/H and transfuse as needed -no active signs of bleeding overnight or this am -etiology- most likely due to known sever distal ulcerative esophagitis, doubt related to bleeding from duodenal ulcer given lack of blood from rectum and relatively stable H/H -tolerating clears-advance diet to GI soft -continue PPI and supportive care -if pt persists in having severe disease and cannot stop meth or disease persits even with stopping meth and tobacco, may need to consider surgical management with antrectomy -pt okay to be d/c per GI standpoint if he tolerates advanced diet and has no further signs of bleeding on PPI with outpatient f/u appt Subjective Date of service: 01/17/18 Principal diagnosis: UGIB Interval history: Patient resting in bed w/o acute distress. Reports mild RUQ intermittent abd pain last night but no pain this am. No N/V or signs of active bleeding overnight or this am. Tolerating clear liquids. Objective - Constitutional Vitals: Temp Pulse Resp BP Pulse Ox 98.4 F 88 18 130/81 98 01/17/18 08:01 01/17/18 08:01 01/17/18 08:01 01/17/18 08:01 01/17/18 08:01 General appearance: no acute distress - Respiratory Respiratory: bilateral: CTA - Cardiovascular Rhythm: regular Heart Sounds: Present: S1 & S2 - Gastrointestinal General gastrointestinal: Present: soft, non-tender, non-distended, normal bowel sounds - Neurologic Neurological: alert and oriented x3 - Labs CBC & Chem 7: 01/17/18 06:22 01/17/18 06:22 Labs: Laboratory Results - last 24 hr 01/16/18 01/16/18 01/16/18 12:38 16:01 20:14 WBC RBC Hgb 9.8 L 9.4 L 9.2 L Hct 30.9 L 30.4 L 29.6 L MCV MCH MCHC RDW Plt Count Lymph % (Auto) [place] % (Auto) Eos % (Auto) Baso % (Auto) Lymph # [place] # Eos # Baso # Seg Neutrophils % Seg Neutrophils # Sodium Potassium Chloride Carbon Dioxide Anion Gap BUN Creatinine Estimated GFR BUN/Creatinine Ratio Glucose Calcium 01/17/18 01/17/18 06:22 06:22 WBC 11.5 H RBC 3.90 Hgb 9.1 L Hct 27.9 L MCV 72 L MCH 23 L MCHC 33 RDW 18.3 H Plt Count 414 Lymph % (Auto) 15.6 [place] % (Auto) 13.0 H Eos % (Auto) 1.1 Baso % (Auto) 0.8 Lymph # 1.8 [place] # 1.5 H Eos # 0.1 Baso # 0.1 Seg Neutrophils % 69.5 Seg Neutrophils # 8.0 H Sodium 138 Potassium 3.2 L Chloride 101.1 Carbon Dioxide 27 Anion Gap 13 BUN 10 Creatinine 0.5 L Estimated GFR > 60 BUN/Creatinine Ratio 20 Glucose 117 H Calcium 8.6 <BERT FOSTER R - Last Filed: 01/17/18 15:18> Assessment and Plan Discussed case with pt and his mother. Okay to D/C on bid PPI. Objective - Constitutional Vitals: Temp Pulse Resp BP Pulse Ox 98.0 F 87 20 115/60 100 01/17/18 11:58 01/17/18 11:58 01/17/18 11:58 01/17/18 11:58 01/17/18 11:58 - Labs CBC & Chem 7: 01/17/18 06:22 01/17/18 06:22 Labs: Laboratory Results - last 24 hr 01/16/18 01/16/18 01/17/18 16:01 20:14 06:22 WBC 11.5 H RBC 3.90 Hgb 9.4 L 9.2 L 9.1 L Hct 30.4 L 29.6 L 27.9 L MCV 72 L MCH 23 L MCHC 33 RDW 18.3 H Plt Count 414 Lymph % (Auto) 15.6 [place] % (Auto) 13.0 H Eos % (Auto) 1.1 Baso % (Auto) 0.8 Lymph # 1.8 [place] # 1.5 H Eos # 0.1 Baso # 0.1 Seg Neutrophils % 69.5 Seg Neutrophils # 8.0 H Sodium Potassium Chloride Carbon Dioxide Anion Gap BUN Creatinine Estimated GFR BUN/Creatinine Ratio Glucose Calcium 01/17/18 06:22 WBC RBC Hgb Hct MCV MCH MCHC RDW Plt Count Lymph % (Auto) [place] % (Auto) Eos % (Auto) Baso % (Auto) Lymph # [place] # Eos # Baso # Seg Neutrophils % Seg Neutrophils # Sodium 138 Potassium 3.2 L Chloride 101.1 Carbon Dioxide 27 Anion Gap 13 BUN 10 Creatinine 0.5 L Estimated GFR > 60 BUN/Creatinine Ratio 20 Glucose 117 H Calcium 8.6
--- NOTE | 2018-01-17 12:34 | Discharge Summary ---
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 he also complained of left side abdominal pain which she described as sharp, dull pain, intermittent in nature, unable to say how long it last for, intensity 4/10, no radiation, he can identify exacerbating or relieving factors. No NSAID use. he was discharged from the hospital on January 07, he was admitted for GIB, his endoscopy showed duodenal ulcer, severe esophagitis and erosive gastritis. An NG tube was placed in the emergency room. Per hx, pt underwent an EGD by Dr. Vickers on 01/07 showing a 4-5 cm duodenal ulcer with no stigmata, and severe distal esophagitis. Patient was seen by conveyor line bakery worker on admission and follow review of previous records and also evaluation by . extensive conversation was had with the patient about need to change lifestyle. Also to be compliant with medications included PPI. The patient verbalized understanding. According to the conveyor line bakery worker if pt persists in having severe disease and cannot stop meth or disease persits even with stopping meth and tobacco, may need to consider surgical management with antrectomy Discharge diagnosis GI bleed most likely secondary to rebleed of his duodenal ulcer Hypokalemia Duodenal ulcer Leukocytosis Possible gastric outlet obstruction Methamphetamine dependance Tobacco dependance Hematemesis Disposition: - TO HOME OR SELFCARE Time spent for discharge: 35 mins Core Measure Documentation - Palliative Care Palliative Care/ Comfort Measures: Not Applicable - Core Measures Any of the following diagnoses?: none - VTE Discharge Requirements Deep Vein Thrombosis/Pulmonary Embolism Present on Admission: No Exam - Physical Exam Narrative exam: VITAL SIGNS: Reviewed. GENERAL: The patient appeared well nourished and normally developed. Vital signs as documented. HEAD: No signs of head trauma. EYES: Pupils are equal. Extraocular motions intact. EARS: Hearing grossly intact. MOUTH: Oropharynx is normal. NECK: No adenopathy, no JVD. CHEST: Chest with clear breath sounds bilaterally. No wheezes, rales, or rhonchi. CARDIAC: Regular rate and rhythm. S1 and S2, without murmurs, gallops, or rubs. VASCULAR: No Edema. Peripheral pulses normal and equal in all extremities. ABDOMEN: Soft, without detectable tenderness. No sign of distention. No rebound or guarding, and no masses palpated. Bowel Sounds normal. MUSCULOSKELETAL: Good range of motion of all major joints. Extremities without clubbing, cyanosis or edema. NEUROLOGIC EXAM: Alert and oriented x 3. No focal sensory or strength deficits. Speech normal. Follows commands. PSYCHIATRIC: Mood normal. SKIN: No rash or lesions. - Constitutional Vitals: Temp Pulse Resp BP Pulse Ox 98.4 F 88 18 130/81 98 01/17/18 08:01 01/17/18 08:01 01/17/18 08:01 01/17/18 08:01 01/17/18 08:01 Plan Activity: advance as tolerated, fall precautions Diet: low fat Special Instructions: record daily weights, record daily BP diary Additional Instructions: must enroll in rehab and quit meth and other substance abuse. Follow up with: PRIMARY CARE, [Primary Care Provider] - 3-5 Days BERT FOSTER MD [Staff Physician] - 7 Days Prescriptions: Nicotine [Habitrol] 14 mg TD QDAY #7 patch Pantoprazole [Protonix TAB] 40 mg PO BID #60 tablet
[2018-01-17 17:03] VITALS: BP 110/63
== END 2018-01-17 18:43 | disposition home or self-care (01) | DRG 378 ==
LOC: ED 16:18 → 4A 23:50
PROVIDERS: ADMIT Internal Medicine; ATTEND Internal Medicine
DX: K26.4 Chronic or unspecified duodenal ulcer with hemorrhage (principal); F15.20 Other stimulant dependence, uncomplicated; K31.1 Adult hypertrophic pyloric stenosis; E11.9 Type 2 diabetes mellitus without complications; F17.200 Nicotine dependence, unspecified, uncomplicated; D72.829 Elevated white blood cell count, unspecified; E87.6 Hypokalemia
CPT/HCPCS: 36415; 74176; 80048; 80053; 81001; 82140; 83690; 85007; 85014; 85018; 85025; 86850; 86900; 86901; 87040; 96374; 96375; C9113; J2270; J2405; J7030

== ENCOUNTER 2018-04-17 21:19 | Emergency (ER) | payer SELFPAY ==
[2018-04-17 21:29] VITALS: BP 109/64
--- NOTE | 2018-04-17 23:10 | Emergency Department Report ---
ED Back Pain/Injury HPI - General Chief Complaint: Fall Stated Complaint: FALL Time Seen by Provider: 04/17/18 23:03 Source: patient Limitations: No Limitations - History of Present Illness Initial Comments: Patient's a 43-year-old white male who presents for upper back pain status post fall 3 days ago there is no LOC patient states he just slipped, stepped pain is 4/10 , exacerbated by deep breathing there is no bruising no swelling no ecchymosis no shortness of breath no wheezing no stridor no dizziness no nausea vomiting MD Complaint: back pain, back injury Onset/Timin -: days(s) Similar Symptoms Previously: No Place: home Radiation: none Severity: moderate Severity scale (0 -10): 4 Quality: aching Consistency: intermittent Improves With: other (rest) Worsens With: movement, deep breaths/cough Context: fall Associated Symptoms: denies: confusion, weakness, chest pain, cough, difficulty urinating, fever/chills, constipation, headaches, abdominal pain, loss of appetite, malaise, nausea/vomiting, seizure, shortness of breath, syncope - Related Data Previous Rx's Medication Instructions Recorded Last Taken Type Nicotine [Habitrol] 14 mg TD QDAY #7 patch 01/17/18 Unknown Rx Pantoprazole [Protonix TAB] 40 mg PO BID #60 tablet 01/17/18 Unknown Rx Cyclobenzaprine [Flexeril] 10 mg PO BID PRN #20 tablet 04/17/18 Unknown Rx Menthol/Camphor [[place] 1 applicatio TP TID PRN #1 tube 04/17/18 Unknown Rx Ointment] Naproxen 500 mg PO BID PRN #30 tablet 04/17/18 Unknown Rx Allergies Allergy/AdvReac Type Severity Reaction Status Date / Time No Known Allergies Allergy Verified 01/15/18 16:20 ED Review of Systems ROS: Stated complaint: FALL Other details as noted in HPI Constitutional: denies: chills, fever Eyes: denies: eye pain, eye discharge, vision change ENT: denies: ear pain, throat pain Respiratory: denies: cough, shortness of breath, wheezing Cardiovascular: denies: chest pain, palpitations Endocrine: no symptoms reported Gastrointestinal: denies: abdominal pain, nausea, diarrhea Genitourinary: denies: urgency, dysuria Musculoskeletal: back pain, arthralgia, myalgia. denies: joint swelling Skin: denies: rash, lesions Neurological: denies: headache, weakness, numbness, paresthesias, confusion, abnormal gait Psychiatric: denies: anxiety, depression Hematological/Lymphatic: denies: easy bleeding, easy bruising ED Past Medical Hx - Past Medical History Hx Diabetes: Yes Additional medical history: Stomach ulcer//blood transfusions - Social History Smoking Status: Never Smoker Substance Use Type: None - Medications Home Medications: Home Medications Medication Instructions Recorded Confirmed Last Taken Type Nicotine [Habitrol] 14 mg TD QDAY #7 patch 01/17/18 Unknown Rx Pantoprazole [Protonix TAB] 40 mg PO BID #60 tablet 01/17/18 Unknown Rx Cyclobenzaprine [Flexeril] 10 mg PO BID PRN #20 tablet 04/17/18 Unknown Rx Menthol/Camphor [[place] 1 applicatio TP TID PRN #1 tube 04/17/18 Unknown Rx Ointment] Naproxen 500 mg PO BID PRN #30 tablet 04/17/18 Unknown Rx ED Physical Exam - General Limitations: No Limitations General appearance: alert, in no apparent distress - Head Head exam: Present: atraumatic, normocephalic - Eye Eye exam: Present: normal appearance, PERRL, EOMI Pupils: Present: normal accommodation - ENT ENT exam: Present: normal orophraynx, mucous membranes moist, TM's normal bilaterally, normal external ear exam - Neck Neck exam: Present: normal inspection, full ROM. Absent: tenderness, lymphadenopathy, thyromegaly - Expanded Neck Exam Expanded Neck exam: Absent: tenderness, midline deformity, anterior neck swelling, thyroid mass, carotid bruit, tracheal deviation - Respiratory Respiratory exam: Present: normal lung sounds bilaterally, chest wall tenderness (right lateral chest wall tenderness no swelling on ecchymosis no deformity no stepoff n). Absent: respiratory distress, wheezes, stridor, accessory muscle use, decreased breath sounds, prolonged expiratory - Cardiovascular Cardiovascular Exam: Present: regular rate, normal rhythm, normal heart sounds. Absent: systolic murmur, diastolic murmur, rubs, gallop - GI/Abdominal GI/Abdominal exam: Present: soft, normal bowel sounds. Absent: distended, tenderness, guarding, rebound, rigid, organomegaly, mass, bruit, pulsatile mass , hernia - Rectal Rectal exam: Present: deferred - Extremities Exam Extremities exam: Present: normal inspection, full ROM, normal capillary refill. Absent: tenderness, pedal edema, joint swelling, calf tenderness - Back Exam Back exam: Present: tenderness (there is no posterior vertebral point tenderness mild paraspinus muscle tenderness no swellng no defeormitty weakness neg straight leg), muscle spasm, paraspinal tenderness. Absent: CVA tenderness (R), CVA tenderness (L), vertebral tenderness, rash noted - Expanded Back Exam Expanded Back exam: Absent: saddle anesthesia Back exam: Negative Straight Leg Raising: Left, Right - Neurological Exam Neurological exam: Present: alert, oriented X3, CN II-XII intact, normal gait, reflexes normal. Absent: motor sensory deficit - Psychiatric Psychiatric exam: Present: normal affect, normal mood - Skin Skin exam: Present: warm, dry, intact, normal color. Absent: rash ED Course Vital Signs 04/17/18 21:25 Temperature 98.7 F Pulse Rate 100 H Respiratory 18 Rate Blood Pressure 109/64 O2 Sat by Pulse 98 Oximetry ED Medical Decision Making - Radiology Data Radiology results: image reviewed no fracture no soft tissue abnormality - Medical Decision Making X-ray normal no fracure, or soft tissue abnormality plan DC home wtih prescription for NSAIDs and muscle relaxants follow up PCP in 2-3 days patient verbalizes understanding and agreement the discharge plan will be DC'd home in stable condition at this time Critical care attestation.: If time is entered above; I have spent that time in minutes in the direct care of this critically ill patient, excluding procedure time. ED Disposition Clinical Impression: Chest wall pain Fall Qualifiers: Encounter type: initial encounter Qualified Code(s): W19.XXXA - Unspecified fall, initial encounter Disposition: DC-01 TO HOME OR SELFCARE Is pt being admited?: No Does the pt Need Aspirin: No Condition: Good Instructions: Chest Pain (ED), Fall Prevention (ED), Thoracic Pain (ED), Costochondritis (ED) Prescriptions: Cyclobenzaprine [Flexeril] 10 mg PO BID PRN #20 tablet PRN Reason: Muscle Spasm Menthol/Camphor [[place] Ointment] 1 applicatio TP TID PRN #1 tube PRN Reason: Pain , Severe (7-10) Naproxen 500 mg PO BID PRN #30 tablet PRN Reason: Pain , Severe (7-10) Referrals: [facility] [Outside] - 3-5 Days Forms: Work/School Release Form(ED) Time of Disposition: 00:01
[2018-04-17] MEDS ORDERED: TORADOL IM ONE (23:15)
--- NOTE | 2018-04-18 00:11 | XRay Report ---
FINAL REPORT PROCEDURE: Thoracic spine. TECHNIQUE: Three-view use. HISTORY: Patient fell, back pain. COMPARISON: No prior studies are available for comparison. FINDINGS: The thoracic vertebrae have normal height and satisfactory alignment. There is very mild wedging of approximately T12. This could represent an old injury. There is no subluxation. The disc spaces appear adequate. IMPRESSION: No evidence of acute thoracic spine injury.
--- NOTE | 2018-04-18 00:14 | XRay Report ---
FINAL REPORT PROCEDURE: Chest. Right ribs. TECHNIQUE: PA chest. AP and oblique views of the right ribs. HISTORY: Rib pain after falling. COMPARISON: Chest 01/04/2018. FINDINGS: Chest: The heart and mediastinum appear normal. The lungs are clear and well expanded. There are no pleural effusions. The soft tissues and regional skeleton are unremarkable. Right ribs: The right-sided ribs appear intact. There are no fractures or other osseous abnormalities. IMPRESSION: Normal study of the chest. Normal study of the right ribs.
== END 2018-04-18 00:20 | disposition home or self-care (01) ==
LOC: ED 21:19
DX: S29.9XXA Unspecified injury of thorax, initial encounter (principal); R07.89 Other chest pain; E11.9 Type 2 diabetes mellitus without complications; W01.0XXA Fall on same level from slipping, tripping and stumbling without subsequent striking against object, initial encounter; Y93.89 Activity, other specified; Y92.89 Other specified places as the place of occurrence of the external cause; Y99.8 Other external cause status
CPT/HCPCS: 71101; 72070; 96372; 99283; J1885

== ENCOUNTER 2018-04-19 07:04 | Emergency (ER) | payer SELFPAY ==
[2018-04-19 08:00] LABS: Basophils # (Auto) 0.1 K/mm3 (0.0-0.1); Basophils % (Auto) 0.5 % (0.0-1.8); Eosinophils # (Auto) 0.1 K/mm3 (0.0-0.4); Eosinophils % (Auto) 0.6 % (0.0-4.3); Hematocrit 36.7 % (35.5-45.6); Hemoglobin 11.5 gm/dl (11.8-15.2); Lymphocytes # (Auto) 1.2 K/mm3 (1.2-5.4); Lymphocytes % (Auto) 8.4 % (13.4-35.0); Mean Corpuscular HGB Conc 31 % (32-34); Mean Corpuscular Volume 73 fl (84-94); Monocytes # (Auto) 0.9 K/mm3 (0.0-0.8); Monocytes % (Auto) 6.6 % (0.0-7.3); Platelet Count 468 K/mm3 (140-440); Red Blood Count 5.05 M/mm3 (3.65-5.03); Red Cell Distribution Width 18.5 % (13.2-15.2)
[2018-04-19 08:02] LABS: Mean Corpuscular Hemoglobin 23 pg (28-32)
[2018-04-19 09:44] LABS: BUN/Creatinine Ratio 22; Blood Urea Nitrogen 11 mg/dL (9-20); Calcium 10.9 mg/dL (8.4-10.2); Hemolysis Index 45
[2018-04-19] MEDS ORDERED: PEPCID PO ONE (14:17)
[2018-04-19] MEDS ORDERED: ZOFRAN ODT PO ONE (14:17)
[2018-04-19] MEDS ORDERED: ALUM-MAG HYDROX-SIMETH 200-200-20MG/5ML PO ONE (14:17)
[2018-04-19] MEDS ORDERED: CARAFATE PO ONE (14:17)
--- NOTE | 2018-04-19 14:18 | Emergency Department Report ---
ED General Adult HPI - General Chief complaint: Chest Pain Stated complaint: CHEST PAIN Time Seen by Provider: 04/19/18 14:05 Source: patient, RN notes reviewed, old records reviewed Mode of arrival: Ambulatory Limitations: No Limitations - History of Present Illness Initial comments: This is a 43-year-old male, who is unknown to this provider previously, has a past medical history of known duodenal ulcer, methamphetamine use, has a history of hypokalemia, tobacco dependence. Patient presents to the ER with a complaint of coughing up blood since he reports a mechanical fall on the aforementioned date. He landed on his back. He denies vomiting blood, defecating blood, chest pain, shortness of breath, abdominal pain, urinary symptoms. His symptoms are intermittent, painless, did not have any qualitative descriptors, and do not have exacerbating or relieving factors. -: Gradual Location: abdomen Improves with: none Worsens with: none Associated Symptoms: cough. denies: confusion, chest pain, diaphoresis, fever/ chills, headaches, loss of appetite, malaise, nausea/vomiting, rash, seizure, shortness of breath, syncope, weakness - Related Data Previous Rx's Medication Instructions Recorded Last Taken Type Pantoprazole [Protonix TAB] 40 mg PO BID #60 tablet 01/17/18 Unknown Rx Cyclobenzaprine [Flexeril] 10 mg PO BID PRN #20 tablet 04/17/18 Unknown Rx Menthol/Camphor [[place] 1 applicatio TP TID PRN #1 tube 04/17/18 Unknown Rx Ointment] Naproxen 500 mg PO BID PRN #30 tablet 04/17/18 Unknown Rx Allergies Allergy/AdvReac Type Severity Reaction Status Date / Time No Known Allergies Allergy Verified 04/19/18 07:21 ED Review of Systems ROS: Stated complaint: CHEST PAIN Other details as noted in HPI Constitutional: denies: fever, malaise Eyes: denies: vision change ENT: denies: epistaxis Respiratory: cough Cardiovascular: denies: chest pain Gastrointestinal: denies: nausea, vomiting, hematemesis, melena, hematochezia Musculoskeletal: back pain Skin: denies: lesions Neurological: weakness Psychiatric: anxiety ED Past Medical Hx - Past Medical History Hx Hypertension: Yes Hx Congestive Heart Failure: No Hx Diabetes: Yes Hx Asthma: No Hx COPD: No Hx Dementia: No Additional medical history: Stomach ulcer//blood transfusions - Social History Smoking Status: Current Every Day Smoker Substance Use Type: Marijuana, Methamphetamines - Medications Home Medications: Home Medications Medication Instructions Recorded Confirmed Last Taken Type Pantoprazole [Protonix TAB] 40 mg PO BID #60 tablet 01/17/18 04/19/18 Unknown Rx Cyclobenzaprine [Flexeril] 10 mg PO BID PRN #20 tablet 04/17/18 04/19/18 Unknown Rx Menthol/Camphor [[place] 1 applicatio TP TID PRN #1 tube 04/17/18 04/19/18 Unknown Rx Ointment] Naproxen 500 mg PO BID PRN #30 tablet 04/17/18 04/19/18 Unknown Rx ED Physical Exam - General Limitations: No Limitations General appearance: alert, in no apparent distress - Head Head exam: Present: atraumatic, normocephalic - Eye Eye exam: Present: normal appearance, EOMI. Absent: nystagmus - ENT ENT exam: Present: normal exam, normal orophraynx, mucous membranes moist - Neck Neck exam: Present: normal inspection, full ROM - Respiratory Respiratory exam: Present: normal lung sounds bilaterally. Absent: respiratory distress - Cardiovascular Cardiovascular Exam: Present: regular rate, normal rhythm, normal heart sounds. Absent: bradycardia, tachycardia, irregular rhythm, systolic murmur, diastolic murmur, rubs, gallop - GI/Abdominal GI/Abdominal exam: Present: soft, normal bowel sounds. Absent: distended, tenderness, guarding, rebound, rigid, pulsatile mass - Rectal Rectal exam: Present: deferred - Extremities Exam Extremities exam: Present: normal inspection, full ROM, normal capillary refill , other (2+ pulses noted in the bilateral upper, lower extremities. Compartments soft. No long bony tenderness. The pelvis is stable.). Absent: tenderness, pedal edema, joint swelling, calf tenderness (there is no palpable cord. This is a negative Homans sign.) - Back Exam Back exam: Present: normal inspection, full ROM. Absent: tenderness, CVA tenderness (R), paraspinal tenderness, vertebral tenderness - Neurological Exam Neurological exam: Present: alert, oriented X3, CN II-XII intact, normal gait, other (Extraocular movements intact. Tongue midline. No facial droop. Facial sensation intact to light touch in the V1, V2, V3 distribution bilaterally. 5 and 5 strength in 4 extremities.. Sensation is intact to light touch in 4 extremities.). Absent: motor sensory deficit - Psychiatric Psychiatric exam: Present: normal affect, normal mood - Skin Skin exam: Present: warm, dry, intact, normal color. Absent: rash ED Course Vital Signs 04/19/18 07:22 Temperature 98.3 F Pulse Rate 93 H Respiratory 18 Rate Blood Pressure 124/80 O2 Sat by Pulse 100 Oximetry - Reevaluation(s) Reevaluation #1: 04/19/18 14:56 Patient consuming cranberry juice without difficulty. Reevaluation #2: 04/19/18 15:00 Repeat vital signs unremarkable. EKG #2 unchanged. No obvious vomiting. Medically suitable for outpatient follow-up. ED Medical Decision Making - Lab Data Result diagrams: 04/19/18 07:42 04/19/18 07:28 Vital Signs 04/19/18 07:22 Temperature 98.3 F Pulse Rate 93 H Respiratory 18 Rate Blood Pressure 124/80 O2 Sat by Pulse 100 Oximetry Lab Results 04/19/18 04/19/18 04/19/18 Range/Units 07:28 07:42 10:12 WBC 14.2 H (4.5-11.0) K/mm3 RBC 5.05 H (3.65-5.03) M/mm3 Hgb 11.5 L (11.8-15.2) gm/dl Hct 36.7 (35.5-45.6) % MCV 73 L (84-94) fl MCH 23 L (28-32) pg MCHC 31 L (32-34) % RDW 18.5 H (13.2-15.2) % Plt Count 468 H (140-440) K/mm3 Lymph % (Auto) 8.4 L (13.4-35.0) % [place] % (Auto) 6.6 (0.0-7.3) % Eos % (Auto) 0.6 (0.0-4.3) % Baso % (Auto) 0.5 (0.0-1.8) % Lymph # 1.2 (1.2-5.4) K/mm3 [place] # 0.9 H (0.0-0.8) K/mm3 Eos # 0.1 (0.0-0.4) K/mm3 Baso # 0.1 (0.0-0.1) K/mm3 Seg Neutrophils % 83.9 H (40.0-70.0) % Seg Neutrophils # 11.9 H (1.8-7.7) K/mm3 Sodium 141 (137-145) mmol/L Potassium 4.0 (3.6-5.0) mmol/L Chloride 97.7 L (98-107) mmol/L Carbon Dioxide 27 (22-30) mmol/L Anion Gap 20 mmol/L BUN 11 (9-20) mg/dL Creatinine 0.5 L (0.8-1.5) mg/dL Estimated GFR > 60 ml/min BUN/Creatinine Ratio 22 % Glucose 137 H (75-100) mg/dL Calcium 10.9 H (8.4-10.2) mg/dL Troponin T < 0.010 < 0.010 (0.00-0.029) ng/mL - EKG Data -: EKG Interpreted by Me EKG shows normal: sinus rhythm, axis, intervals, QRS complexes, ST-T waves - EKG Data When compared to previous EKG there are: no significant change Interpretation: no acute changes, normal EKG, unchanged when compared t - Radiology Data Radiology results: image reviewed interpreted by me: X-ray of the chest by me, no acute disease - Medical Decision Making Differential diagnosis, including but not limited to, bronchitis, bronchiectasis , pneumonia, pneumothorax, pulmonary contusion Assessment and plan: 43-year-old male with a history of methamphetamine use and GI bleed who presents with complaints of coughing up blood after mechanical trauma last week. He is afebrile with reassuring vital signs, makes no complaint of chest pain or shortness of breath to this provider, by clinical history is low risk by well's criteria, perc negative, low risk by sammie, heart score. Troponin is sent prior to my evaluation but based on his history of painless hemoptysis, I do not believe he requires admission to the hospital for cardiac risk stratification. His EKG appears to be unchanged from prior, laboratory studies appear to be at baseline, leukocytosis is appreciated, however based on the history and his physical exam I do not have a high suspicion for bacterial infection at this time. The patient is again counseled to discontinue smoking, and he can follow-up with an outpatient primary care doctor. Critical care attestation.: If time is entered above; I have spent that time in minutes in the direct care of this critically ill patient, excluding procedure time. ED Disposition Clinical Impression: History of hemoptysis Disposition: DC-01 TO HOME OR SELFCARE Is pt being admited?: No Does the pt Need Aspirin: No Condition: Good Instructions: Acute Hemoptysis (ED) Additional Instructions: Discontinued consumption of tobacco and methamphetamines. Continue current outpatient medications. Follow up with a primary care doctor within the next month. Not following up as recommended may result in undiagnosed tumor, cancer , malignancy. Alternatively, patient may follow up with gastroenterology within the recommended timeframe. Please return to the ER right away with new pain, worsening pain, migration of pain, fevers, chills, lethargy, irritability , projectile vomiting, change in mental status, vomiting blood, defecating blood. Referrals: PRIMARY [facility]EM[facility] [Primary Care Provider] - 3-5 Days [facility] [Provider Group] - 3-5 Days [facility] [Provider Group] - 3-5 Days
--- NOTE | 2018-04-19 14:58 | XRay Report ---
ROUTINE CHEST, TWO VIEWS: HISTORY: chest pain. The trachea, heart, mediastinal contour, lung [place] and bony thorax are unremarkable. IMPRESSION: No acute cardiopulmonary process identified.
[2018-04-19 15:57] VITALS: BP 124/65
== END 2018-04-19 16:20 | disposition home or self-care (01) ==
LOC: ED 07:04
DX: R04.2 Hemoptysis (principal); I10 Essential (primary) hypertension; E11.9 Type 2 diabetes mellitus without complications; F17.200 Nicotine dependence, unspecified, uncomplicated; F15.10 Other stimulant abuse, uncomplicated; F12.10 Cannabis abuse, uncomplicated
CPT/HCPCS: 36415; 71046; 80048; 84484; 85025; 93005; 93010; 99284; Q0162

== ENCOUNTER 2018-05-02 06:14 | Inpatient (IN) | payer SELFPAY ==
[2018-05-02] MEDS ORDERED: NACL 0.9% 1000 ML 1,000 ML IV ONE ×2 (06:56→11:07)
[2018-05-02 07:23] LABS: Basophils # (Auto) 0.2 K/mm3 (0.0-0.1); Basophils % (Auto) 1.1 % (0.0-1.8); Eosinophils % (Auto) 0.1 % (0.0-4.3); Hematocrit 26.4 % (35.5-45.6); Hemoglobin 8.2 gm/dl (11.8-15.2); Lymphocytes # (Auto) 1.2 K/mm3 (1.2-5.4); Lymphocytes % (Auto) 6.5 % (13.4-35.0); Mean Corpuscular HGB Conc 31 % (32-34); Mean Corpuscular Hemoglobin 22 pg (28-32); Mean Corpuscular Volume 71 fl (84-94); Monocytes # (Auto) 0.8 K/mm3 (0.0-0.8); Monocytes % (Auto) 4.3 % (0.0-7.3); Platelet Count 955 K/mm3 (140-440); Red Blood Count 3.75 M/mm3 (3.65-5.03); Red Cell Distribution Width 17.8 % (13.2-15.2)
[2018-05-02 07:31] LABS: INR 0.98 (0.87-1.13); Partial Thromboplastin Time 31.6 Sec. (24.2-36.6)
[2018-05-02 07:41] LABS: Alanine Aminotransferase 12 units/L (7-56); Albumin 3.6 g/dL (3.9-5); BUN/Creatinine Ratio 24; Blood Urea Nitrogen 12 mg/dL (9-20); Calcium 9.6 mg/dL (8.4-10.2); Hemolysis Index 3; Lipase 22 units/L (13-60)
[2018-05-02] MEDS ORDERED: LIDOCAINE VISCOUS 2% PO ONE (11:07)
[2018-05-02] MEDS ORDERED: PROTONIX IV ONE (11:07)
[2018-05-02] MEDS ORDERED: ZOFRAN IV ONE (11:08)
--- NOTE | 2018-05-02 11:12 | Emergency Department Report ---
ED GI Bleed HPI - General Chief complaint: GI Bleed Stated complaint: CHEST PAIN Time Seen by Provider: 05/02/18 10:51 Source: patient, EMS, old records reviewed Mode of arrival: Stretcher Limitations: No Limitations - History of Present Illness Initial comments: 43-year-old male with a past medical history methamphetamine abuse, homelessness , peptic ulcer disease, gastritis, and recurrent episodes of GI bleeding presents to the hospitalist and is coughing and vomiting blood. He states he is vomiting coffee ground emesis that is bloody at times. He also states he is coughing up bright red blood. The pains anterior mid and left-sided chest pain that is sharp and stabbing and intermittent. Reproducible with palpation. ' Mild" shortness of breath reported. Patient was seen in January for similar symptoms and GI workup revealing findings below. Patient states he's been unable to afford the Protonix. He then apparently re-resented in the hospital may have additional treatment and workup and required blood transfusion. He was discharged on medications and still states he is unable to afford and not taking. Patient denies melena, hematochezia, fever, calf tenderness, or edema. He denies daily alcohol consumption and recent methamphetamine use. He is requesting admission and NG tube placement previous medical record reviewed and patient also presented views twice in April for back and chest pain felt to be musculoskeletal in origin and occurring after a fall. 01/07/2018 EGD as per medical record Impression: 1. Severe esophagitis and mucosal changes as above. Biopsies obtained. 2. Erosive gastritis. Biopsies obtained. 3. Large cratered duodenal bulb ulcer (clean based). Edges of ulcer were biopsied. Severity scale (0 -10): 10 - Related Data Previous Rx's Medication Instructions Recorded Last Taken Type Pantoprazole [Protonix TAB] 40 mg PO BID #60 tablet 01/17/18 Unknown Rx Cyclobenzaprine [Flexeril] 10 mg PO BID PRN #20 tablet 04/17/18 Unknown Rx Menthol/Camphor [Evangeline [place] 1 applicatio TP TID PRN #1 tube 04/17/18 Unknown Rx Ointment] Naproxen 500 mg PO BID PRN #30 tablet 04/17/18 Unknown Rx Allergies Allergy/AdvReac Type Severity Reaction Status Date / Time No Known Allergies Allergy Verified 04/19/18 07:21 ED Review of Systems ROS: Stated complaint: CHEST PAIN Other details as noted in HPI Comment: All other systems reviewed and negative ED Past Medical Hx - Past Medical History Hx Hypertension: Yes Hx Congestive Heart Failure: No Hx Diabetes: Yes Hx Asthma: No Hx COPD: No Hx Dementia: No Additional medical history: Stomach ulcer//blood transfusions - Surgical History Past Surgical History?: No - Social History Smoking Status: Current Every Day Smoker Substance Use Type: Alcohol - Medications Home Medications: Home Medications Medication Instructions Recorded Confirmed Last Taken Type Pantoprazole [Protonix TAB] 40 mg PO BID #60 tablet 01/17/18 04/19/18 Unknown Rx Cyclobenzaprine [Flexeril] 10 mg PO BID PRN #20 tablet 04/17/18 04/19/18 Unknown Rx Menthol/Camphor [Evangeline [place] 1 applicatio TP TID PRN #1 tube 04/17/18 04/19/18 Unknown Rx Ointment] Naproxen 500 mg PO BID PRN #30 tablet 04/17/18 04/19/18 Unknown Rx ED Physical Exam - General Limitations: No Limitations - Other Other exam information: General: No limitations, patient is alert in no acute distress Head exam: Atraumatic, normocephalic Eyes exam: Normal appearance, pupils equal reactive to light, extraocular movements intact, nonicteric sclera ENT: Moist mucous membrane, normal oropharynx Neck exam: Normal inspection, full range of motion, no meningismus nontender Respiratory exam: Clear to auscultation bilateral, no wheezes, rales, crackles Cardiovascular: Normal rate and rhythm, normal heart sounds, left lower rib tenderness Abdomen: Soft, nondistended, and nontender, with normal bowel sounds, no rebound, or guarding. Spitting intermittently into the back without signs of gross hematuria or coffee ground emesis. Rectal: Guaiac positive dark brown stool. No external hemorrhoids or gross blood Extremity: Full range of motion normal inspection no deformity Back: Normal Inspection, full range of motion, no tenderness Neurologic: Alert, oriented x3, cranial nerves intact, no motor or sensory deficit Psychiatric: normal affect, normal mood Skin: Warm, dry, intact ED Course Vital Signs 05/02/18 05/02/18 05/02/18 06:13 09:05 11:50 Temperature 98.2 F 98.5 F 98.3 F Pulse Rate 84 97 H 92 H Respiratory 18 20 13 Rate Blood Pressure 112/67 116/73 Blood Pressure 123/74 [Left] O2 Sat by Pulse 99 100 97 Oximetry 05/02/18 13:52 Temperature 98.7 F Pulse Rate 93 H Respiratory 20 Rate Blood Pressure Blood Pressure 102/63 [Left] O2 Sat by Pulse 98 Oximetry - Reevaluation(s) Reevaluation #1: 05/02/18 12:32 Pt had initial output of 500ml of coffee ground stomach contents aspirated after NGT insertion - Consultations Consultation #1: 05/02/18 14:31 case d/w Dr Paulino (GI), will consult. He was able to check records at [facility] and no february admission record in the system therefore I question patient's history regarding blood transfusion and admission to [facility] ED Medical Decision Making - Lab Data Result diagrams: 05/02/18 07:05 05/02/18 07:05 Lab Results 05/02/18 05/02/18 05/02/18 Range/Units 07:05 07:05 07:05 WBC 18.0 H (4.5-11.0) K/mm3 RBC 3.75 (3.65-5.03) M/mm3 Hgb 8.2 L (11.8-15.2) gm/dl Hct 26.4 L (35.5-45.6) % MCV 71 L (84-94) fl MCH 22 L (28-32) pg MCHC 31 L (32-34) % RDW 17.8 H (13.2-15.2) % Plt Count 955 H (140-440) K/mm3 Lymph % (Auto) 6.5 L (13.4-35.0) % [place] % (Auto) 4.3 (0.0-7.3) % Eos % (Auto) 0.1 (0.0-4.3) % Baso % (Auto) 1.1 (0.0-1.8) % Lymph # 1.2 (1.2-5.4) K/mm3 [place] # 0.8 (0.0-0.8) K/mm3 Eos # 0.0 (0.0-0.4) K/mm3 Baso # 0.2 H (0.0-0.1) K/mm3 Seg Neutrophils % 88.0 H (40.0-70.0) % Seg Neutrophils # 15.9 H (1.8-7.7) K/mm3 PT 13.5 (12.2-14.9) Sec. INR 0.98 (0.87-1.13) APTT 31.6 (24.2-36.6) Sec. D-Dimer (0-234) ng/mlDDU Sodium 140 (137-145) mmol/L Potassium 3.2 L (3.6-5.0) mmol/L Chloride 94.2 L (98-107) mmol/L Carbon Dioxide 34 H (22-30) mmol/L Anion Gap 15 mmol/L BUN 12 (9-20) mg/dL Creatinine 0.5 L (0.8-1.5) mg/dL Estimated GFR > 60 ml/min BUN/Creatinine Ratio 24 % Glucose 140 H (75-100) mg/dL Calcium 9.6 (8.4-10.2) mg/dL Magnesium (1.7-2.3) mg/dL Iron (49-181) ug/dL TIBC (250-450) mcg/dL % Saturation % Transferrin (180-329) mg/dl Total Bilirubin 0.40 (0.1-1.2) mg/dL AST 12 (5-40) units/L ALT 12 (7-56) units/L Alkaline Phosphatase 85 (35-129) units/L Total Protein 7.3 (6.3-8.2) g/dL Albumin 3.6 L (3.9-5) g/dL Albumin/Globulin Ratio 1.0 % Lipase 22 (13-60) units/L Urine Color (Yellow) Urine Turbidity (Clear) Urine pH (5.0-7.0) Ur Specific [place] (1.003-1.030) Urine Protein (Negative) mg/dL Urine Glucose (UA) (Negative) mg/dL Urine Ketones (Negative) mg/dL Urine Blood (Negative) Urine Nitrite (Negative) Urine Bilirubin (Negative) Urine Urobilinogen (<2.0) mg/dL Ur Leukocyte Esterase (Negative) Urine WBC (Auto) (0.0-6.0) /HPF Urine RBC (Auto) (0.0-6.0) /HPF Urine Mucus /HPF Urine Opiates Screen Urine Methadone Screen Ur Barbiturates Screen Ur Phencyclidine Scrn Ur Amphetamines Screen U Benzodiazepines Scrn Urine Cocaine Screen U Marijuana (THC) Screen Drugs of Abuse Note Blood Type Antibody Screen 05/02/18 05/02/18 05/02/18 Range/Units 07:05 07:05 07:05 WBC (4.5-11.0) K/mm3 RBC (3.65-5.03) M/mm3 Hgb (11.8-15.2) gm/dl Hct (35.5-45.6) % MCV (84-94) fl MCH (28-32) pg MCHC (32-34) % RDW (13.2-15.2) % Plt Count (140-440) K/mm3 Lymph % (Auto) (13.4-35.0) % [place] % (Auto) (0.0-7.3) % Eos % (Auto) (0.0-4.3) % Baso % (Auto) (0.0-1.8) % Lymph # (1.2-5.4) K/mm3 [place] # (0.0-0.8) K/mm3 Eos # (0.0-0.4) K/mm3 Baso # (0.0-0.1) K/mm3 Seg Neutrophils % (40.0-70.0) % Seg Neutrophils # (1.8-7.7) K/mm3 PT (12.2-14.9) Sec. INR (0.87-1.13) APTT (24.2-36.6) Sec. D-Dimer 1380.51 H (0-234) ng/mlDDU Sodium (137-145) mmol/L Potassium (3.6-5.0) mmol/L Chloride (98-107) mmol/L Carbon Dioxide (22-30) mmol/L Anion Gap mmol/L BUN (9-20) mg/dL Creatinine (0.8-1.5) mg/dL Estimated GFR ml/min BUN/Creatinine Ratio % Glucose (75-100) mg/dL Calcium (8.4-10.2) mg/dL Magnesium (1.7-2.3) mg/dL Iron 14 L (49-181) ug/dL TIBC 279 (250-450) mcg/dL % Saturation 5.02 % Transferrin 235 (180-329) mg/dl Total Bilirubin (0.1-1.2) mg/dL AST (5-40) units/L ALT (7-56) units/L Alkaline Phosphatase (35-129) units/L Total Protein (6.3-8.2) g/dL Albumin (3.9-5) g/dL Albumin/Globulin Ratio % Lipase (13-60) units/L Urine Color (Yellow) Urine Turbidity (Clear) Urine pH (5.0-7.0) Ur Specific [place] (1.003-1.030) Urine Protein (Negative) mg/dL Urine Glucose (UA) (Negative) mg/dL Urine Ketones (Negative) mg/dL Urine Blood (Negative) Urine Nitrite (Negative) Urine Bilirubin (Negative) Urine Urobilinogen (<2.0) mg/dL Ur Leukocyte Esterase (Negative) Urine WBC (Auto) (0.0-6.0) /HPF Urine RBC (Auto) (0.0-6.0) /HPF Urine Mucus /HPF Urine Opiates Screen Urine Methadone Screen Ur Barbiturates Screen Ur Phencyclidine Scrn Ur Amphetamines Screen U Benzodiazepines Scrn Urine Cocaine Screen U Marijuana (THC) Screen Drugs of Abuse Note Blood Type O POSITIVE Antibody Screen Negative 05/02/18 05/02/18 05/02/18 Range/Units 07:05 13:29 13:29 WBC (4.5-11.0) K/mm3 RBC (3.65-5.03) M/mm3 Hgb (11.8-15.2) gm/dl Hct (35.5-45.6) % MCV (84-94) fl MCH (28-32) pg MCHC (32-34) % RDW (13.2-15.2) % Plt Count (140-440) K/mm3 Lymph % (Auto) (13.4-35.0) % [place] % (Auto) (0.0-7.3) % Eos % (Auto) (0.0-4.3) % Baso % (Auto) (0.0-1.8) % Lymph # (1.2-5.4) K/mm3 [place] # (0.0-0.8) K/mm3 Eos # (0.0-0.4) K/mm3 Baso # (0.0-0.1) K/mm3 Seg Neutrophils % (40.0-70.0) % Seg Neutrophils # (1.8-7.7) K/mm3 PT (12.2-14.9) Sec. INR (0.87-1.13) APTT (24.2-36.6) Sec. D-Dimer (0-234) ng/mlDDU Sodium (137-145) mmol/L Potassium (3.6-5.0) mmol/L Chloride (98-107) mmol/L Carbon Dioxide (22-30) mmol/L Anion Gap mmol/L BUN (9-20) mg/dL Creatinine (0.8-1.5) mg/dL Estimated GFR ml/min BUN/Creatinine Ratio % Glucose (75-100) mg/dL Calcium (8.4-10.2) mg/dL Magnesium 2.10 (1.7-2.3) mg/dL Iron (49-181) ug/dL TIBC (250-450) mcg/dL % Saturation % Transferrin (180-329) mg/dl Total Bilirubin (0.1-1.2) mg/dL AST (5-40) units/L ALT (7-56) units/L Alkaline Phosphatase (35-129) units/L Total Protein (6.3-8.2) g/dL Albumin (3.9-5) g/dL Albumin/Globulin Ratio % Lipase (13-60) units/L Urine Color Yellow (Yellow) Urine Turbidity Clear (Clear) Urine pH 8.0 H (5.0-7.0) Ur Specific [place] 1.020 (1.003-1.030) Urine Protein 100 mg/dl (Negative) mg/dL Urine Glucose (UA) Neg (Negative) mg/dL Urine Ketones Neg (Negative) mg/dL Urine Blood Neg (Negative) Urine Nitrite Neg (Negative) Urine Bilirubin Neg (Negative) Urine Urobilinogen 2.0 (<2.0) mg/dL Ur Leukocyte Esterase Neg (Negative) Urine WBC (Auto) 1.0 (0.0-6.0) /HPF Urine RBC (Auto) 1.0 (0.0-6.0) /HPF Urine Mucus 1+ /HPF Urine Opiates Screen Presumptive negative Urine Methadone Screen Presumptive negative Ur Barbiturates Screen Presumptive negative Ur Phencyclidine Scrn Presumptive negative Ur Amphetamines Screen Presumptive positive U Benzodiazepines Scrn Presumptive negative Urine Cocaine Screen Presumptive negative U Marijuana (THC) Screen Presumptive negative Drugs of Abuse Note Disclamer Blood Type Antibody Screen - EKG Data -: EKG Interpreted by Me EKG shows normal: sinus rhythm, axis (qrs 68), QRS complexes (qrsd 68), ST-T waves (no steim/t inv) Rate: normal (80) - Radiology Data Radiology results: report reviewed AP ABDOMEN: HISTORY: Nasogastric tube placement.. The nasogastric tube terminates in expected position of the mid stomach. The abdominal gas pattern is unremarkable. No masses or organomegaly is identified and there is no gross evidence of free air or fluid. No significant soft tissue calcifications are noted. IMPRESSION: Unremarkable abdomen. Nasogastric tube as described. CTA CHEST: HISTORY: Coughing and vomiting blood. COMPARISON: none. TECHNIQUE: Helical CT in 1.25mm intervals following IV contrast. Pulmonary embolus protocol. Sagittal and coronal reformatted images. Rotational MIP images. FINDINGS: Contrast bolus is satisfactory. No pulmonary embolus is identified. Thyroid gland: Normal. Tracheobronchial tree: Normal. Esophagus: There is moderate circumferential thickening of the mid to distal esophagus. No obvious perforation or mass. Esophagitis should be considered. A feeding tube is in position. The visualized proximal stomach is unremarkable. Heart: Normal. Pericardium: Normal. Mediastinum: No mass or adenopathy is identified. Lung Brown: Normal. Pleural Spaces: Normal. Musculoskeletal: Normal. IMPRESSION: No evidence for pulmonary embolus. Findings compatible with moderate to severe esophagitis. Correlate with the patient's clinical presentation. Transcribed By: TTR - Medical Decision Making Coffee-ground emesis hx of PUD/gastritis/esophagitis with recent egd Drop in H&H compared to values from April 19 Medication noncompliance Protonix and IV fluids given in the GI consulted NG tube, NPO Hemoptysis I suspect that patient is actually vomiting blood instead of coughing up blood D-dimer elevation is likely secondary to GI bleed + Chest pain, reproducible, neg cardiac enzymes and ekg CT angiogram neg for PE Anemia Acute blood loss plus iron deficiency Blood transfusion indicated at this time Elevated platelets noted, coags normal Leukocytosis I believe this is a stress reaction. Abdomen nontender No signs of infection or sepsis Hypokalemia Supplemented with IV potassium 20 mEq in the ED Methamphetamine abuse Positive UDS Homelessness Lack of resources, follow-up, and medication noncompliance with recurrent admissions for GI bleeding Hospitalist informed for admission - Differential Diagnosis medication noncompliance, PUD, GI bleed, iron deficiency, PE, gastritis Critical Care Time: No Critical care attestation.: If time is entered above; I have spent that time in minutes in the direct care of this critically ill patient, excluding procedure time. ED Disposition Clinical Impression: Coffee ground emesis, PUD (peptic ulcer disease), Anemia, Guaiac positive stools, Amphetamine abuse, Homeless, Noncompliance with medication regimen, Iron deficiency, Leukocytosis, Hypokalemia, Thrombocytosis, Chest wall pain, Erosive esophagitis Disposition: OP ADMIT IP TO THIS HOSP Is pt being admited?: Yes Condition: Stable Time of Disposition: 14:50 (Dr Leslie/hosp)
[2018-05-02 11:24] LABS: % Iron Saturation 5.02 %
[2018-05-02] MEDS: KCL 10MEQ/100ML 10 MEQ/100 ML BAG IV SCH ×2 (12:53→15:27)
--- NOTE | 2018-05-02 13:00 | XRay Report ---
AP ABDOMEN: HISTORY: Nasogastric tube placement.. The nasogastric tube terminates in expected position of the mid stomach. The abdominal gas pattern is unremarkable. No masses or organomegaly is identified and there is no gross evidence of free air or fluid. No significant soft tissue calcifications are noted. IMPRESSION: Unremarkable abdomen. Nasogastric tube as described.
[2018-05-02 13:45] LABS: Bilirubin,Urine NEG (Negative); Blood,Urine NEG (Negative); Color,Urine Yellow (Yellow); Mucus,Urine 1+ /HPF
[2018-05-02 13:54] LABS: Benzodiazepines Screen,Urine PRESUMPTIVE NEGATIVE; Cannabinoid Screen,Urine PRESUMPTIVE NEGATIVE; Cocaine Screen,Urine PRESUMPTIVE NEGATIVE; Methadone Screen,Urine PRESUMPTIVE NEGATIVE; Opiate Screen,Urine PRESUMPTIVE NEGATIVE
[2018-05-02 14:07] LABS: Amphetamine Screen,Urine PRESUMPTIVE POSITIVE
--- NOTE | 2018-05-02 14:38 | Cat Scan Report ---
CTA CHEST: HISTORY: Coughing and vomiting blood. COMPARISON: none. TECHNIQUE: Helical CT in 1.25mm intervals following IV contrast. Pulmonary embolus protocol. Sagittal and coronal reformatted images. Rotational MIP images. FINDINGS: Contrast bolus is satisfactory. No pulmonary embolus is identified. Thyroid gland: Normal. Tracheobronchial tree: Normal. Esophagus: There is moderate circumferential thickening of the mid to distal esophagus. No obvious perforation or mass. Esophagitis should be considered. A feeding tube is in position. The visualized proximal stomach is unremarkable. Heart: Normal. Pericardium: Normal. Mediastinum: No mass or adenopathy is identified. Lung Brown: Normal. Pleural Spaces: Normal. Musculoskeletal: Normal. IMPRESSION: No evidence for pulmonary embolus. Findings compatible with moderate to severe esophagitis. Correlate with the patient's clinical presentation.
--- NOTE | 2018-05-02 16:47 | History and Physical Report ---
History of Present Illness Chief complaint: coughing up blood again History of present illness: 43 YO Male with PUD, Gastritis, Nicotine Dependence, Amphatimine Abuse, Recurrent UGI Bleed presents to ED for evaluation. Pt states that he has experienced multiple episodes of coughing up blood over the past 24 hours. Pt also acknowledges chest discomfort that is present after coughing episodes. Pt is unable to afford his medication and hos not been compliant. Patient denies fever, chills, CP, Palpitations, melena, hematochezia, prolonged travel/ immobility, calf tenderness, individual/family history of DVT/PE. Pt see and evaluated in ED and found to have evidence of Sepsis as well as GI bleed. Pt admitted to medical floor and initiated on sepsis protocol. GI consulted in ED . Past History Past Medical History: GERD, other (PUD, Severe Esophagitis, Recurrent UGI BLeed) Past Surgical History: Other (EGD) Social history: single Family history: no significant family history (reviewed) Medications and Allergies Allergies Allergy/AdvReac Type Severity Reaction Status Date / Time No Known Allergies Allergy Verified 04/19/18 07:21 Home Medications Medication Instructions Recorded Confirmed Last Taken Type Pantoprazole [Protonix TAB] 40 mg PO BID #60 tablet 01/17/18 04/19/18 Unknown Rx Cyclobenzaprine [Flexeril] 10 mg PO BID PRN #20 tablet 04/17/18 04/19/18 Unknown Rx Menthol/Camphor [[place] 1 applicatio TP TID PRN #1 tube 04/17/18 04/19/18 Unknown Rx Ointment] Naproxen 500 mg PO BID PRN #30 tablet 04/17/18 04/19/18 Unknown Rx Review of Systems Constitutional: no weight loss, no weight gain, no fever, no chills Ears, nose, mouth and throat: no ear pain, no ear discharge, no tinnitis, no decreased hearing, no nose pain, no nasal congestion Cardiovascular: no chest pain, no orthopnea, no palpitations, no rapid/ irregular heart beat, no edema Respiratory: hemoptysis, no cough, no cough with sputum, no excessive sputum Gastrointestinal: no nausea, no vomiting, no diarrhea, no constipation Genitourinary Male: no hematuria, no flank pain, no discharge, no urinary frequency, no urinary hesitancy, no nocturia Rectal: no pain, no incontinence Musculoskeletal: no neck stiffness, no neck pain, no arm numbness/tingling, no low back pain Integumentary: no rash, no pruritis, no redness, no sores, no wounds Neurological: no head injury, no transient paralysis, no paralysis, no weakness , no parathesias, no numbness Psychiatric: no anxiety, no memory loss, no change in sleep habits, no sleep disturbances, no insomnia, no hypersomnia, no change in appetite, no change in libido Endocrine: no cold intolerance, no heat intolerance, no polyphagia, no excessive thirst, no polydipsia, no polyuria, no nocturia, no excessive sweating Hematologic/Lymphatic: no easy bruising, no easy bleeding, no lymphadenopathy, no lymphedema Allergic/Immunologic: no urticaria, no allergic rhinitis, no persistent infections, no anaphylaxis Exam - Constitutional Vitals: Temp Pulse Resp BP Pulse Ox 98.3 F 117 H 20 105/63 96 05/02/18 15:00 05/02/18 15:00 05/02/18 15:00 05/02/18 15:00 05/02/18 15:00 General appearance: Present: mild distress - EENT Eyes: Present: PERRL ENT: hearing intact, clear oral mucosa - Neck Neck: Present: supple, normal ROM - Respiratory Respiratory effort: normal Respiratory: bilateral: CTA - Cardiovascular Heart Sounds: Present: S1 & S2. Absent: rub, click - Extremities Extremities: pulses symmetrical, No edema Peripheral Pulses: within normal limits - Abdominal General gastrointestinal: Present: soft, non-tender, non-distended, normal bowel sounds Male genitourinary: Present: normal - Integumentary Integumentary: Present: clear, warm, dry - Musculoskeletal Musculoskeletal: gait normal, strength equal bilaterally - Psychiatric Psychiatric: appropriate mood/affect, intact judgment & insight - Neurologic Neurologic: CNII-XII intact, moves all extremities Results - Labs CBC & Chem 7: 05/02/18 07:05 05/02/18 07:05 Labs: Abnormal lab results 05/02/18 05/02/18 05/02/18 Range/Units 07:05 07:05 07:05 WBC 18.0 H (4.5-11.0) K/mm3 Hgb 8.2 L (11.8-15.2) gm/dl Hct 26.4 L (35.5-45.6) % MCV 71 L (84-94) fl MCH 22 L (28-32) pg MCHC 31 L (32-34) % RDW 17.8 H (13.2-15.2) % Plt Count 955 H (140-440) K/mm3 Lymph % (Auto) 6.5 L (13.4-35.0) % Baso # 0.2 H (0.0-0.1) K/mm3 Seg Neutrophils % 88.0 H (40.0-70.0) % Seg Neutrophils # 15.9 H (1.8-7.7) K/mm3 D-Dimer 1380.51 H (0-234) ng/mlDDU Potassium 3.2 L (3.6-5.0) mmol/L Chloride 94.2 L (98-107) mmol/L Carbon Dioxide 34 H (22-30) mmol/L Creatinine 0.5 L (0.8-1.5) mg/dL Glucose 140 H (75-100) mg/dL Iron (49-181) ug/dL Albumin 3.6 L (3.9-5) g/dL Urine pH (5.0-7.0) 05/02/18 05/02/18 Range/Units 07:05 13:29 WBC (4.5-11.0) K/mm3 Hgb (11.8-15.2) gm/dl Hct (35.5-45.6) % MCV (84-94) fl MCH (28-32) pg MCHC (32-34) % RDW (13.2-15.2) % Plt Count (140-440) K/mm3 Lymph % (Auto) (13.4-35.0) % Baso # (0.0-0.1) K/mm3 Seg Neutrophils % (40.0-70.0) % Seg Neutrophils # (1.8-7.7) K/mm3 D-Dimer (0-234) ng/mlDDU Potassium (3.6-5.0) mmol/L Chloride (98-107) mmol/L Carbon Dioxide (22-30) mmol/L Creatinine (0.8-1.5) mg/dL Glucose (75-100) mg/dL Iron 14 L (49-181) ug/dL Albumin (3.9-5) g/dL Urine pH 8.0 H (5.0-7.0) Assessment and Plan - Patient Problems (1) Sepsis Current Visit: Yes Status: Acute Qualifiers: Sepsis type: sepsis due to unspecified organism Qualified Code(s): A41.9 - Sepsis, unspecified organism Plan to address problem: IV antibiotic therapy, monitor uop q shift, serial Lactic acid, IVF resuscitation therapy, cbc, cmp, blood cultures, chest x ray, urinalysis. (2) GI (gastrointestinal bleed) Current Visit: Yes Status: Acute Qualifiers: Gastritis type: acute gastritis Plan to address problem: Serial cbc, PPI therapy, Gi consulted in ED, carafate. (3) Esophagitis Current Visit: Yes Status: Acute Plan to address problem: GI consulted in ED, Carafate, supportive care. (4) Amphetamine dependence Current Visit: Yes Status: Chronic Plan to address problem: Supportive care, (5) Anemia Current Visit: Yes Status: Acute Plan to address problem: supportive care, No transfusion at this time, repeat cbc (6) DVT prophylaxis Current Visit: Yes Status: Acute Plan to address problem: SCD to BLE while in bed.
[2018-05-02] MEDS ORDERED: SODIUM CHLORIDE FLUSH SYRINGE 10 ML IV PRN (16:54)
[2018-05-02] MEDS ORDERED: PROVENTIL IH PRN (16:54)
[2018-05-02] MEDS ORDERED: ZOFRAN IV PRN (16:54)
[2018-05-02] MEDS ORDERED: VANCOMYCIN 1,250 MG in NACL 0.9% 500 ML 500 ML IV ONE (16:57)
[2018-05-02] MEDS ORDERED: NACL 0.9% 1000 ML IV ONE (16:57)
[2018-05-02] MEDS: VANCOMYCIN 1,250 MG in NACL 0.9% 250ML 250 ML IV SCH (21:45)
[2018-05-02] MEDS: CARAFATE PO SCH (21:45)
[2018-05-02] MEDS: ZOSYN/NS 4.5GM/100ML 4.5 GM/100 ML VIAL IV SCH (21:45)
[2018-05-02] MEDS: PROTONIX IV SCH (21:45)
[2018-05-02] MEDS: SODIUM CHLORIDE FLUSH SYRINGE 10 ML IV SCH (21:46)
[2018-05-03] MEDS: ZOSYN/NS 4.5GM/100ML 4.5 GM/100 ML VIAL IV SCH ×3 (05:49→21:58)
[2018-05-03] MEDS: VANCOMYCIN 1,250 MG in NACL 0.9% 250ML 250 ML IV SCH ×2 (05:49→19:59)
[2018-05-03] MEDS: NACL 0.45% 1000 ML 1,000 ML IV SCH (06:48)
[2018-05-03] MEDS: CARAFATE PO SCH ×4 (08:36→21:58)
[2018-05-03] MEDS: ATIVAN IV PRN ×2 (08:38→19:46)
--- NOTE | 2018-05-03 09:56 | Progress Note ---
Assessment and Plan Sepsis: On IV Zosyn and Vanco, IV fluids follow-up blood cultures GI bleed: IV Protonix, sucralfate, GI input appreciated Esophagitis: Supportive care, GI input appreciated Hypokalemia: Will replete Amphetamine dependence: Supportive care Anemia: Will monitor Thrombocytosis: DVT prophylaxis with SCD, GI prophylaxis with Protonix Subjective Date of service: 05/03/18 Principal diagnosis: Sepsis, GI bleed Interval history: Patient seen and examined. Patient is a bit hypotensive but improving Objective - Constitutional Vitals: Vital Signs - 12hr 05/02/18 05/03/18 05/03/18 22:00 00:14 05:42 Temperature 99.3 F 98.7 F Pulse Rate 99 H 111 H Respiratory 18 18 16 Rate Blood Pressure 105/64 92/65 O2 Sat by Pulse 94 96 Oximetry 05/03/18 06:08 Temperature 99.4 F Pulse Rate 103 H Respiratory 18 Rate Blood Pressure 101/58 O2 Sat by Pulse 94 Oximetry General appearance: Present: no acute distress, well-nourished - EENT Eyes: PERRL, EOM intact ENT: hearing intact, clear oral mucosa Ears: bilateral: normal - Neck Neck: supple, normal ROM - Respiratory Respiratory effort: normal Respiratory: bilateral: CTA - Breasts Breasts: deferred - Cardiovascular Rhythm: regular Heart Sounds: Present: S1 & S2. Absent: gallop, rub Extremities: pulses intact, No edema, normal color, Full ROM - Gastrointestinal General gastrointestinal: Present: soft, non-tender, non-distended, normal bowel sounds Rectal Exam: deferred - Genitourinary Male genitourinary: deferred - Integumentary Integumentary: clear, warm, dry - Musculoskeletal Musculoskeletal: strength equal bilaterally - Neurologic Neurologic: moves all extremities - Psychiatric Psychiatric: appropriate mood/affect, cooperative - Labs CBC & Chem 7: 05/02/18 07:05 05/02/18 07:05 Labs: Abnormal lab results 05/02/18 05/02/18 05/02/18 Range/Units 07:05 07:05 13:29 D-Dimer 1380.51 H (0-234) ng/mlDDU Lactic Acid (0.7-2.0) mmol/L Iron 14 L (49-181) ug/dL Urine pH 8.0 H (5.0-7.0) 05/02/18 Range/Units 23:01 D-Dimer (0-234) ng/mlDDU Lactic Acid 0.60 L (0.7-2.0) mmol/L Iron (49-181) ug/dL Urine pH (5.0-7.0)
--- NOTE | 2018-05-03 10:21 | Gastroenterology Consultation ---
<MARIIA BENTON - Last Filed: 05/03/18 10:47> History of Present Illness - Reason for Consult Consult date: 05/03/18 coffee ground emesis, hx of PUD Requesting physician: RAMESH GODFERY - History of Present Illness Patient is a 43 y/o male with PMH of recurrent GI bleed, PUD, tobacco dependence , and substance abuse who was admitted for coffee ground emesis. No melena or hematochezia. NG tube now with bilious non-bloody drainage. No active signs of bleeding this am per nursing. Patient is well known to our service from previous hospitalizations for similar symptoms with undergoing multiple EGDs 2016 and last 01/07/18 showing a large cratered duodenal bulb ulcer, severe esophagitis and gastritis. He was discharged on a daily PPI, to which he was has been noncompliant with taking due to cost and continues to use crystal meth and smoke. This morning patient was resting in bed w/o acute distress butnoted to be somnolent. No evidence of CP, SOB, or abd pain. Past History Past Medical History: GERD, other (PUD, Severe Esophagitis, Recurrent UGI BLeed) Past Surgical History: Other (EGD) Social history: single, smoking, other (crystal meth) Family history: no significant family history (reviewed) Medications and Allergies Allergies Allergy/AdvReac Type Severity Reaction Status Date / Time No Known Allergies Allergy Verified 04/19/18 07:21 Home Medications Medication Instructions Recorded Confirmed Last Taken Type Pantoprazole [Protonix TAB] 40 mg PO BID #60 tablet 01/17/18 04/19/18 Unknown Rx Cyclobenzaprine [Flexeril] 10 mg PO BID PRN #20 tablet 04/17/18 04/19/18 Unknown Rx Menthol/Camphor [[place] 1 applicatio TP TID PRN #1 tube 04/17/18 04/19/18 Unknown Rx Ointment] Naproxen 500 mg PO BID PRN #30 tablet 04/17/18 04/19/18 Unknown Rx Active Meds: Active Medications Acetaminophen (Tylenol) 650 mg PO Q4H PRN PRN Reason: Pain MILD(1-3)/Fever >100.5/DIANE Albuterol (Proventil) 2.5 mg IH Q4HRT PRN PRN Reason: Shortness Of Breath Piperacillin Sod/Tazobactam Sod (Zosyn/Ns 4.5gm/100ml) 4.5 gm in 100 mls @ 200 mls/hr IV Q8HR [facility]; Protocol Last Admin: 05/03/18 05:49 Dose: 200 mls/hr Vancomycin HCl 1,250 mg/ (Sodium Chloride) 262.5 mls @ 166.667 mls/hr IV Q12H [facility] Last Admin: 05/03/18 05:49 Dose: 166.667 mls/hr Sodium Chloride (Nacl 0.45% 1000 Ml) 1,000 mls @ 75 mls/hr IV DIRECT [facility] Last Admin: 05/03/18 06:48 Dose: 75 mls/hr Lorazepam (Ativan) 0.5 mg IV Q8H PRN PRN Reason: anxiety Last Admin: 05/03/18 08:38 Dose: 0.5 mg Ondansetron HCl (Zofran) 4 mg IV Q8H PRN PRN Reason: Nausea And Vomiting Pantoprazole Sodium (Protonix) 40 mg IV BID [facility] Last Admin: 05/02/18 21:45 Dose: 40 mg Sodium Chloride (Sodium Chloride Flush Syringe 10 Ml) 10 ml IV BID [facility] Last Admin: 05/02/18 21:46 Dose: 10 ml Sodium Chloride (Sodium Chloride Flush Syringe 10 Ml) 10 ml IV PRN PRN PRN Reason: LINE FLUSH Sucralfate (Carafate) 1 gm PO ACHS [facility] Last Admin: 05/03/18 08:36 Dose: 1 gm Review of Systems - Review of Systems ROS unobtainable: due to mental status Exam - Constitutional Vital Signs: Temp Pulse Resp BP Pulse Ox 99.4 F 103 H 18 101/58 94 05/03/18 06:08 05/03/18 06:08 05/03/18 06:08 05/03/18 06:08 05/03/18 06:08 General appearance: no acute distress, other (somnlent) - Respiratory Respiratory: bilateral: CTA (anterior) - Cardiovascular Rhythm: other (tachycardia) Heart Sounds: Present: S1 & S2 - Gastrointestinal General gastrointestinal: Present: soft, non-distended, normal bowel sounds - Labs CBC & Chem 7: 05/02/18 07:05 05/02/18 07:05 Lab Results: Laboratory Results - last 24 hr 05/02/18 05/02/18 05/02/18 07:05 07:05 07:05 D-Dimer 1380.51 H Lactic Acid Magnesium 2.10 Iron 14 L TIBC 279 % Saturation 5.02 Transferrin 235 Urine Color Urine Turbidity Urine pH Ur Specific [place] Urine Protein Urine Glucose (UA) Urine Ketones Urine Blood Urine Nitrite Urine Bilirubin Urine Urobilinogen Ur Leukocyte Esterase Urine WBC (Auto) Urine RBC (Auto) Urine Mucus Urine Opiates Screen Urine Methadone Screen Ur Barbiturates Screen Ur Phencyclidine Scrn Ur Amphetamines Screen U Benzodiazepines Scrn Urine Cocaine Screen U Marijuana (THC) Screen Drugs of Abuse Note 05/02/18 05/02/18 05/02/18 13:29 13:29 17:03 D-Dimer Lactic Acid 0.90 Magnesium Iron TIBC % Saturation Transferrin Urine Color Yellow Urine Turbidity Clear Urine pH 8.0 H Ur Specific [place] 1.020 Urine Protein 100 mg/dl Urine Glucose (UA) Neg Urine Ketones Neg Urine Blood Neg Urine Nitrite Neg Urine Bilirubin Neg Urine Urobilinogen 2.0 Ur Leukocyte Esterase Neg Urine WBC (Auto) 1.0 Urine RBC (Auto) 1.0 Urine Mucus 1+ Urine Opiates Screen Presumptive negative Urine Methadone Screen Presumptive negative Ur Barbiturates Screen Presumptive negative Ur Phencyclidine Scrn Presumptive negative Ur Amphetamines Screen Presumptive positive U Benzodiazepines Scrn Presumptive negative Urine Cocaine Screen Presumptive negative U Marijuana (THC) Screen Presumptive negative Drugs of Abuse Note Disclamer 05/02/18 05/02/18 19:23 23:01 D-Dimer Lactic Acid 0.90 0.60 L Magnesium Iron TIBC % Saturation Transferrin Urine Color Urine Turbidity Urine pH Ur Specific [place] Urine Protein Urine Glucose (UA) Urine Ketones Urine Blood Urine Nitrite Urine Bilirubin Urine Urobilinogen Ur Leukocyte Esterase Urine WBC (Auto) Urine RBC (Auto) Urine Mucus Urine Opiates Screen Urine Methadone Screen Ur Barbiturates Screen Ur Phencyclidine Scrn Ur Amphetamines Screen U Benzodiazepines Scrn Urine Cocaine Screen U Marijuana (THC) Screen Drugs of Abuse Note Assessment and Plan 1.coffee-ground emesis -HGB 8.2 -continue to monitor H/H and transfuse as needed -hold blood thinning medications -no active signs of bleeding (NG with bilious drainage) -currently HD stable -last EGD 01/07/2018 showed large cratered duodenal bulb ulcer w/o bleeding stigmata, severe esophagitis, and gastritis -etiology-most likely due to known severe distal esophagitis, doubt related to bleeding from duodenal ulcer -will consider repeat EGD based on progress -if pt persists in having severe disease, and cannot stop meth, or disease persists even with stopping meth and tobacco, may need to consider surgical management with antrectomy -continue PPI BID and supportive care -will follow <BERT FOSTER - Last Filed: 05/03/18 15:09> Medications and Allergies Active Meds: Active Medications Acetaminophen (Tylenol) 650 mg PO Q4H PRN PRN Reason: Pain MILD(1-3)/Fever >100.5/DIANE Albuterol (Proventil) 2.5 mg IH Q4HRT PRN PRN Reason: Shortness Of Breath Piperacillin Sod/Tazobactam Sod (Zosyn/Ns 4.5gm/100ml) 4.5 gm in 100 mls @ 200 mls/hr IV Q8HR [facility]; Protocol Last Admin: 05/03/18 14:52 Dose: 200 mls/hr Vancomycin HCl 1,250 mg/ (Sodium Chloride) 262.5 mls @ 166.667 mls/hr IV Q12H [facility] Last Admin: 05/03/18 05:49 Dose: 166.667 mls/hr Sodium Chloride (Nacl 0.45% 1000 Ml) 1,000 mls @ 75 mls/hr IV DIRECT [facility] Last Admin: 05/03/18 06:48 Dose: 75 mls/hr Lorazepam (Ativan) 0.5 mg IV Q8H PRN PRN Reason: anxiety Last Admin: 05/03/18 08:38 Dose: 0.5 mg Ondansetron HCl (Zofran) 4 mg IV Q8H PRN PRN Reason: Nausea And Vomiting Pantoprazole Sodium (Protonix) 40 mg IV BID [facility] Last Admin: 05/03/18 10:34 Dose: 40 mg Sodium Chloride (Sodium Chloride Flush Syringe 10 Ml) 10 ml IV BID [facility] Last Admin: 05/03/18 10:35 Dose: 10 ml Sodium Chloride (Sodium Chloride Flush Syringe 10 Ml) 10 ml IV PRN PRN PRN Reason: LINE FLUSH Sucralfate (Carafate) 1 gm PO ACHS [facility] Last Admin: 05/03/18 14:53 Dose: 1 gm Exam - Constitutional Vital Signs: Temp Pulse Resp BP Pulse Ox 99.0 F 101 H 20 108/64 94 05/03/18 12:13 05/03/18 12:13 05/03/18 12:13 05/03/18 12:13 05/03/18 12:13 - Labs CBC & Chem 7: 05/02/18 07:05 05/02/18 07:05 Lab Results: Laboratory Results - last 24 hr 05/02/18 05/02/18 05/02/18 17:03 19:23 23:01 Lactic Acid 0.90 0.90 0.60 L Assessment and Plan Pt has copious green bilious emesis in NGT. No evidence of active bleeding. Known PUD. - monitor NGT output, and clampa nd D/C when improved. - PPI as above - monitor H/H and transfuse as needed.
[2018-05-03] MEDS: PROTONIX IV SCH ×2 (10:34→21:59)
[2018-05-03] MEDS: SODIUM CHLORIDE FLUSH SYRINGE 10 ML IV SCH ×2 (10:35→22:00)
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
[2018-05-04] MEDS: ATIVAN IV PRN ×2 (04:49→17:42)
[2018-05-04] MEDS: NACL 0.45% 1000 ML 1,000 ML IV SCH (04:49)
[2018-05-04] MEDS: ZOSYN/NS 4.5GM/100ML 4.5 GM/100 ML VIAL IV SCH ×2 (05:07→13:25)
[2018-05-04 06:11] LABS: Basophils # (Auto) 0.3 K/mm3 (0.0-0.1); Basophils % (Auto) 2.3 % (0.0-1.8); Eosinophils # (Auto) 0.1 K/mm3 (0.0-0.4); Eosinophils % (Auto) 1.1 % (0.0-4.3); Hematocrit 23.9 % (35.5-45.6); Hemoglobin 7.3 gm/dl (11.8-15.2); Lymphocytes # (Auto) 1.7 K/mm3 (1.2-5.4); Lymphocytes % (Auto) 14.3 % (13.4-35.0); Mean Corpuscular HGB Conc 31 % (32-34); Mean Corpuscular Hemoglobin 21 pg (28-32); Mean Corpuscular Volume 70 fl (84-94); Monocytes # (Auto) 0.9 K/mm3 (0.0-0.8); Monocytes % (Auto) 7.8 % (0.0-7.3); Platelet Count 783 K/mm3 (140-440); Red Blood Count 3.41 M/mm3 (3.65-5.03); Red Cell Distribution Width 17.7 % (13.2-15.2)
[2018-05-04 06:20] LABS: INR 1.37 (0.87-1.13)
[2018-05-04 06:35] LABS: Alanine Aminotransferase 7 units/L (7-56); Albumin 2.7 g/dL (3.9-5); BUN/Creatinine Ratio 19; Blood Urea Nitrogen 13 mg/dL (9-20); Calcium 8.8 mg/dL (8.4-10.2); Hemolysis Index 1
[2018-05-04] MEDS: VANCOMYCIN 1,250 MG in NACL 0.9% 250ML 250 ML IV SCH ×2 (06:38→19:11)
[2018-05-04] MEDS: CARAFATE PO SCH ×3 (09:07→17:42)
[2018-05-04] MEDS: PROTONIX IV SCH (10:22)
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
[2018-05-04] MEDS: SODIUM CHLORIDE FLUSH SYRINGE 10 ML IV SCH (13:25)
--- NOTE | 2018-05-04 23:31 | Cat Scan Report ---
FINAL REPORT PROCEDURE: CT ABDOMEN PELVIS W CON TECHNIQUE: Computerized axial tomography of the abdomen and pelvis was performed after the IV injection of iodinated nonionic contrast. HISTORY: abdominal pain COMPARISON: 01/15/2018 FINDINGS: Mild degree bilateral pleural effusions are identified associated with atelectatic changes of adjacent bilateral lower lobes. Liver, spleen, pancreas and adrenal glands are within normal limits. Bilateral kidneys demonstrate uniform enhancement without hydronephrosis. Aorta is of normal caliber. There is no free fluid or free air. Gallbladder is unremarkable. Small bowel loops are within normal limits. Appendix is normal. There is asymmetric circumferential thickening of distal esophagus. Nonenlarged lymph nodes are noted at the gastroesophageal junction. Vertebral height is within normal limits. IMPRESSION: Bilateral pleural effusions Asymmetric circumferential thickening of distal esophagus is suspicious for neoplasm. Differential diagnosis includes esophagitis. Endoscopic evaluation is recommended.
[2018-05-05] MEDS: ZOSYN/NS 4.5GM/100ML 4.5 GM/100 ML VIAL IV SCH ×4 (00:16→23:15)
[2018-05-05] MEDS: CARAFATE PO SCH ×4 (00:16→17:26)
[2018-05-05] MEDS: PROTONIX IV SCH ×2 (00:17→13:17)
[2018-05-05] MEDS: ATIVAN IV PRN (02:45)
[2018-05-05 07:08] LABS: Basophils # (Auto) 0.3 K/mm3 (0.0-0.1); Basophils % (Auto) 2.3 % (0.0-1.8); Eosinophils # (Auto) 0.3 K/mm3 (0.0-0.4); Eosinophils % (Auto) 2.8 % (0.0-4.3); Hematocrit 21.9 % (35.5-45.6); Hemoglobin 6.8 gm/dl (11.8-15.2); Lymphocytes # (Auto) 2.2 K/mm3 (1.2-5.4); Lymphocytes % (Auto) 19.2 % (13.4-35.0); Mean Corpuscular HGB Conc 31 % (32-34); Mean Corpuscular Hemoglobin 22 pg (28-32); Mean Corpuscular Volume 70 fl (84-94); Monocytes % (Auto) 8.6 % (0.0-7.3); Platelet Count 725 K/mm3 (140-440); Red Blood Count 3.12 M/mm3 (3.65-5.03); Red Cell Distribution Width 17.4 % (13.2-15.2)
[2018-05-05 07:22] LABS: Alanine Aminotransferase 7 units/L (7-56); Albumin 2.5 g/dL (3.9-5); BUN/Creatinine Ratio 15; Blood Urea Nitrogen 9 mg/dL (9-20); Calcium 8.6 mg/dL (8.4-10.2); Hemolysis Index 1
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
--- NOTE | 2018-05-05 10:37 | Gastroenterology Progress Note ---
<MARIIA BENTON - Last Filed: 05/05/18 10:37> Assessment and Plan 1.coffee-ground emesis -HGB 6.8-trending down -continue to monitor H/H and transfuse as needed -hold blood thinning medications -no active signs of bleeding this am -currently HD stable -last EGD 01/07/2018 showed large cratered duodenal bulb ulcer w/o bleeding stigmata, severe esophagitis, and gastritis -etiology-most likely due to known severe distal esophagitis, doubt related to bleeding from duodenal ulcer -if pt persists in having severe disease, and cannot stop meth, or disease persists even with stopping meth and tobacco, may need to consider surgical management with antrectomy -with H/H trending down, keep NPO after MN for possible EGD in am based on progress -continue PPI and supportive care -will follow Subjective Date of service: 05/05/18 Principal diagnosis: GI bleed Interval history: Patient walking around room this am w/o acute distress. No active signs of bleeding overnight or this am. Denies abd pain or N/V. Tolerating diet. Objective - Constitutional Vitals: Temp Pulse Resp BP Pulse Ox 98.0 F 90 18 117/69 98 05/05/18 05:07 05/05/18 05:07 05/05/18 05:07 05/05/18 05:07 05/05/18 05:07 General appearance: no acute distress - Respiratory Respiratory: bilateral: CTA - Cardiovascular Rhythm: regular Heart Sounds: Present: S1 & S2 - Gastrointestinal General gastrointestinal: Present: soft, non-tender, non-distended, normal bowel sounds - Neurologic Neurological: alert and oriented x3 - Labs CBC & Chem 7: 05/05/18 06:00 05/05/18 06:00 Labs: Laboratory Results - last 24 hr 05/05/18 05/05/18 06:00 06:00 WBC 11.5 H RBC 3.12 L Hgb 6.8 L Hct 21.9 L MCV 70 L MCH 22 L MCHC 31 L RDW 17.4 H Plt Count 725 H Lymph % (Auto) 19.2 [place] % (Auto) 8.6 H Eos % (Auto) 2.8 Baso % (Auto) 2.3 H Lymph # 2.2 Wetzel # 1.0 H Eos # 0.3 Baso # 0.3 H Seg Neutrophils % 67.1 Seg Neutrophils # 7.7 Sodium 137 Potassium 3.5 L Chloride 99.7 Carbon Dioxide 27 Anion Gap 14 BUN 9 Creatinine 0.6 L Estimated GFR > 60 BUN/Creatinine Ratio 15 Glucose 99 Calcium 8.6 Total Bilirubin 0.20 AST 9 ALT 7 Alkaline Phosphatase 71 Total Protein 5.5 L Albumin 2.5 L Albumin/Globulin Ratio 0.8 <KRISTINBERT R - Last Filed: 05/05/18 19:59> Assessment and Plan CT finding of eccentric esophageal thickening noted, and present in 01/2018. EGD on 01/07/18 did show severe distal esophagitis. Pt should have repeat EGD done on therapy, after 2 months of therapy, to get effective healing and be able to assess for any underlying neoplasm or Whiteside's, etc. Will do repeat EGD this admission if H/H or evidence of esau GI bleed warrants , but PPI is optimal therapy for now. Objective - Constitutional Vitals: Temp Pulse Resp BP Pulse Ox 98.4 F 101 H 18 115/70 98 05/05/18 17:25 05/05/18 17:25 05/05/18 17:25 05/05/18 17:25 05/05/18 17:25 - Labs CBC & Chem 7: 05/05/18 06:00 05/05/18 06:00 Labs: Laboratory Results - last 24 hr 05/05/18 05/05/18 05/05/18 06:00 06:00 10:29 WBC 11.5 H RBC 3.12 L Hgb 6.8 L Hct 21.9 L MCV 70 L MCH 22 L MCHC 31 L RDW 17.4 H Plt Count 725 H Lymph % (Auto) 19.2 [place] % (Auto) 8.6 H Eos % (Auto) 2.8 Baso % (Auto) 2.3 H Lymph # 2.2 Wetzel # 1.0 H Eos # 0.3 Baso # 0.3 H Seg Neutrophils % 67.1 Seg Neutrophils # 7.7 Sodium 137 Potassium 3.5 L Chloride 99.7 Carbon Dioxide 27 Anion Gap 14 BUN 9 Creatinine 0.6 L Estimated GFR > 60 BUN/Creatinine Ratio 15 Glucose 99 Calcium 8.6 Total Bilirubin 0.20 AST 9 ALT 7 Alkaline Phosphatase 71 Total Protein 5.5 L Albumin 2.5 L Albumin/Globulin Ratio 0.8 Blood Type O POSITIVE Antibody Screen Negative Crossmatch See Detail
[2018-05-05] MEDS ORDERED: NACL 0.9% 500 ML 500 ML IV ONE (11:00)
[2018-05-05] MEDS: SODIUM CHLORIDE FLUSH SYRINGE 10 ML IV SCH (13:16)
[2018-05-05] MEDS: TYLENOL PO PRN (14:37)
[2018-05-05] MEDS: VANCOMYCIN 1,250 MG in NACL 0.9% 250ML 250 ML IV SCH ×2 (17:26)
[2018-05-05] MEDS: XANAX PO PRN (17:26)
[2018-05-05] MEDS: NACL 0.45% 1000 ML 1,000 ML IV SCH (17:27)
[2018-05-06] MEDS ORDERED: NACL 0.9% 500 ML 500 ML IV ONE (00:22)
[2018-05-06] MEDS: CARAFATE PO SCH ×4 (01:01→17:10)
[2018-05-06] MEDS: TYLENOL PO PRN (01:02)
[2018-05-06] MEDS: SODIUM CHLORIDE FLUSH SYRINGE 10 ML IV SCH ×2 (01:02→09:58)
[2018-05-06] MEDS: XANAX PO PRN (01:02)
[2018-05-06] MEDS: PROTONIX IV SCH ×2 (01:02→09:58)
[2018-05-06] MEDS: ZOSYN/NS 4.5GM/100ML 4.5 GM/100 ML VIAL IV SCH (06:14)
[2018-05-06] MEDS: VANCOMYCIN 1,250 MG in NACL 0.9% 250ML 250 ML IV SCH (06:14)
[2018-05-06 08:17] LABS: Basophils # (Auto) 0.1 K/mm3 (0.0-0.1); Eosinophils # (Auto) 0.4 K/mm3 (0.0-0.4); Eosinophils % (Auto) 4.4 % (0.0-4.3); Hematocrit 27.6 % (35.5-45.6); Hemoglobin 8.7 gm/dl (11.8-15.2); Lymphocytes # (Auto) 1.7 K/mm3 (1.2-5.4); Mean Corpuscular HGB Conc 32 % (32-34); Mean Corpuscular Hemoglobin 23 pg (28-32); Mean Corpuscular Volume 74 fl (84-94); Monocytes # (Auto) 0.8 K/mm3 (0.0-0.8); Monocytes % (Auto) 8.6 % (0.0-7.3); Platelet Count 629 K/mm3 (140-440); Red Blood Count 3.74 M/mm3 (3.65-5.03); Red Cell Distribution Width 18.8 % (13.2-15.2)
[2018-05-06 08:35] LABS: Alanine Aminotransferase 6 units/L (7-56); Albumin 2.6 g/dL (3.9-5); BUN/Creatinine Ratio 13; Blood Urea Nitrogen 8 mg/dL (9-20); Calcium 8.4 mg/dL (8.4-10.2); Hemolysis Index 1
--- NOTE | 2018-05-06 10:21 | Gastroenterology Progress Note ---
Assessment and Plan 1.coffee-ground emesis -HGB 8.7-s/p transfusion 2units PRBCs -continue to monitor H/H and transfuse as needed -hold blood thinning medications -no active signs of bleeding this am -currently HD stable -last EGD 01/07/2018 showed large cratered duodenal bulb ulcer w/o bleeding stigmata, severe esophagitis, and gastritis -etiology-most likely due to known severe distal esophagitis, doubt related to bleeding from duodenal ulcer -if pt persists in having severe disease, and cannot stop meth, or disease persists even with stopping meth and tobacco, may need to consider surgical management with antrectomy -Keep NPO for EGD today -continue PPI and supportive care -will follow Subjective Principal diagnosis: GI bleed Interval history: No acute distress. No active signs of bleeding overnight or this am. Denies abd pain or N/V. Objective - Constitutional Vitals: Temp Pulse Resp BP Pulse Ox 97.7 F 75 16 108/62 98 05/06/18 05:38 05/06/18 05:38 05/06/18 05:38 05/06/18 05:38 05/06/18 05:38 General appearance: no acute distress - Respiratory Respiratory: bilateral: CTA - Cardiovascular Rhythm: regular Heart Sounds: Present: S1 & S2 - Gastrointestinal General gastrointestinal: Present: soft, non-tender, non-distended, normal bowel sounds - Neurologic Neurological: alert and oriented x3 - Labs CBC & Chem 7: 05/06/18 07:19 05/06/18 07:19 Labs: Laboratory Results - last 24 hr 05/05/18 05/06/18 05/06/18 10:29 07:19 07:19 WBC 9.2 RBC 3.74 Hgb 8.7 L Hct 27.6 L MCV 74 L MCH 23 L MCHC 32 RDW 18.8 H Plt Count 629 H Lymph % (Auto) 19.0 [place] % (Auto) 8.6 H Eos % (Auto) 4.4 H Baso % (Auto) 1.0 Lymph # 1.7 [place] # 0.8 Eos # 0.4 Baso # 0.1 Seg Neutrophils % 67.0 Seg Neutrophils # 6.2 Sodium 140 Potassium 3.9 Chloride 106.7 Carbon Dioxide 27 Anion Gap 10 BUN 8 L Creatinine 0.6 L Estimated GFR > 60 BUN/Creatinine Ratio 13 Glucose 100 Calcium 8.4 Total Bilirubin 0.40 AST 7 ALT 6 L Alkaline Phosphatase 70 Total Protein 5.6 L Albumin 2.6 L Albumin/Globulin Ratio 0.9 Blood Type O POSITIVE Antibody Screen Negative Crossmatch See Detail
--- NOTE | 2018-05-06 10:44 | Discharge Summary ---
Providers - Providers Date of Admission: 05/02/18 16:54 Attending physician: FELIPE PEREIRA MD 05/02/18 14:30 Consult to Physician [CONS] Urgent Comment: Consulting Provider: BERT FOSTER Physician Instructions: Reason For Exam: hx of pud/gastritis, coffee ground emesis anemia Primary care physician: ACCOUNTING TECHNICIAN Hospitalization Reason for admission: gi bleed Condition: Stable Hospital course: 43 YO Male with PUD, Gastritis, Nicotine Dependence, Amphatimine Abuse, very noncompliant, Recurrent UGI Bleed presents to ED for evaluation. Pt states that he has experienced multiple episodes of coughing up blood over the past 24 hours. Pt also acknowledges chest discomfort that is present after coughing episodes. Pt is unable to afford his medication and hos not been compliant. Patient denies fever, chills, CP, Palpitations, melena, hematochezia, prolonged travel/immobility, calf tenderness, individual/family history of DVT/PE. Pt see and evaluated in ED and found to have evidence of Sepsis as well as GI bleed. Pt admitted to medical floor and initiated on sepsis protocol. GI consulted in ED . Patient was started on empiric antibiotic coverage cultures were unremarkable. She did complete some antibiotic coverage and was seen by GI we' ll repeat endoscopy which revealed 1. Circumferential ulcerative esophagitis, with white exudative base, from 30 to 40 cm from incisors. 2. Otherwise normal esophagus. 3. Normal stomach, with moderate amount of retained green beans in body. 4. Normal duodenum and bulb. Findings were discussed with the patient in detail. Again patient was recommended to continue PPI twice a day and follow up with GI patient last modification strongly advised. Patient received 200 bicarbonate so on admission. Discharge diagnosis Sepsis: GI bleed Acute blood loss anemia secondary to GI bleeding Esophagitis: Hypokalemia: Amphetamine dependence: Disposition: TO HOME OR SELFCARE Time spent for discharge: 35 mins Core Measure Documentation - Palliative Care Palliative Care/ Comfort Measures: Not Applicable - Core Measures Any of the following diagnoses?: none - VTE Discharge Requirements Deep Vein Thrombosis/Pulmonary Embolism Present on Admission: No Exam - Physical Exam Narrative exam: Constitutional: Well-nourished well-developed. Head: Normocephalic atraumatic Eyes: Pupils are equal round and reactive to light Nose: No enlarged turbinates, no septal deviation. Mouth: Moist mucous membranes. Neck: Supple no thyromegaly. No bruit. No JVD Heart: Regular rate and rhythm, S1-S2 abnormal. No rubs murmurs or gallop Lungs: Clear to auscultation bilaterally no rales or rhonchi Abdomen: Soft, nontender. Bowel sound are present. Extremities: No edema no cyanosis and no clubbing. Neuro: Alert oriented Oriented x3. No focal sensory or motor deficit. Skin: No rashes no hyperemic spots Psychiatry: Euthymic. Calm. - Constitutional Vitals: Temp Pulse Resp BP Pulse Ox 97.7 F 75 16 108/62 98 05/06/18 05:38 05/06/18 05:38 05/06/18 05:38 05/06/18 05:38 05/06/18 05:38 Plan Activity: no restrictions, advance as tolerated, fall precautions Diet: low fat Special Instructions: smoking cessation, other (must quit substance abuse and enroll in detox program) Additional Instructions: MUST FOLLOW WITH GI FOR RE-EVALUATION AND POSSIBLE RE- SCOPE Follow up with: PRIMARY CAREMD [Primary Care Provider] - 7 Days BERT FOSTER MD [Staff Physician] - 7 Days Prescriptions: Pantoprazole [Protonix TAB] 40 mg PO BID #60 tablet Sucralfate [Carafate] 1 gm PO ACHS #30 oral.liqd
[2018-05-06] MEDS ORDERED: XYLOCAINE MPF 2% ONE (13:30)
--- NOTE | 2018-05-06 13:39 | Anesthesia Consultation ---
Anesthesia Consult and Med Hx Date of service: 05/06/18 - Airway Anesthetic Teeth Evaluation: Poor (multiple missing, careous, broken teeth) ROM Head & Neck: Adequate Mental/Hyoid Distance: Adequate Mallampati Class: Class II Intubation Access Assessment: Probably Good - Pre-Operative Health Status ASA Pre-Surgery Classification: ASA3 Proposed Anesthetic Plan: MAC - Pulmonary Hx Smoking: Yes (1.5 p/day x 29 years) Hx Asthma: No Hx Respiratory Symptoms: Yes (cough) COPD: No Hx Pneumonia: No - Cardiovascular System Hx Hypertension: Yes - Central Nervous System CVA: No Hx Psychiatric Problems: Yes (anxiety, combative, 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
[2018-05-06] MEDS ORDERED: WATER FOR IRRIG STERILE IR ONE (13:40)
--- NOTE | 2018-05-06 13:40 | Anesthesia Day of Surgery ---
Anesthesia Day of Surgery - Day of Surgery Patient Examined: Yes Patient H&P Reviewed: Yes Patient is NPO: Yes
[2018-05-06] MEDS ORDERED: NACL 0.9% 1000 ML 1,000 ML IV SCH (14:00)
[2018-05-06] MEDS ORDERED: DIPRIVAN 10 MG/ML IV ONE (15:05)
--- NOTE | 2018-05-06 15:34 | Post Operative Note ---
Pre-op diagnosis: Abnormal CT of esophagus Post-op diagnosis: other (Ulcerative esophagitis) Findings: 1. Circumferential ulcerative esophagitis, with white exudative base, from 30 to 40 cm from incisors. 2. Otherwise normal esophagus. 3. Normal stomach, with moderate amount of retained green beans in body. 4. Normal duodenum and bulb. Procedure: EGD Anesthesia: MAC Surgeon: BERT FOSTER Estimated blood loss: none Pathology: none Condition: stable Disposition: floor (Okay to D/C on bid PPI from GI standpoint.)
--- NOTE | 2018-05-06 16:07 | Operative Report ---
PROCEDURE: Upper endoscopy. PREOPERATIVE DIAGNOSES: Abnormal CT of the esophagus. POSTOPERATIVE DIAGNOSES: Ulcerative esophagitis. SEDATION: MAC by Anesthesia. HISTORY: The patient is a 43-year-old man who has known severe esophagitis. He cannot afford PPIs usually. He came in with coffee-ground emesis, which has resolved. Procedure, indications, risks, and benefits were explained and consent was obtained. The patient was placed in left lateral decubitus position and sedated. [employer] [facility] video upper endoscope was passed through the mouth and oropharynx into the descending duodenum. Scope was then gradually withdrawn with close inspection of mucosa. FINDINGS: 1. Severe ulcerative esophagitis with circumferential white ulceration from 30-40 cm from the incisors. 2. Remainder of esophagus is normal. 3. Normal appearing stomach including gastric antrum, fundus, and body, and cardia though there was a moderate amount of retained green beans in the gastric body. 4. Normal appearing duodenal bulb and duodenum. The patient tolerated the procedure well without immediate complication. IMPRESSION: Ulcerative esophagitis - The patient needs to be on chronic proton pump inhibitor therapy. [facility]# [id number] HRC/NTS
[2018-05-06 17:02] VITALS: BP 115/60
[2018-05-06] MEDS ORDERED: VANCOMYCIN 1,250 MG in NACL 0.9% 250ML 250 ML IV SCH (18:00)
== END 2018-05-06 17:30 | disposition home or self-care (01) | DRG 871 ==
LOC: ED 06:14 → 3A 16:54
PROVIDERS: ADMIT Internal Medicine; ATTEND Internal Medicine
PROC: 30233N1 Transfusion of Nonautologous Red Blood Cells into Peripheral Vein, Percutaneous Approach (ICD-10-PCS; 2018-05-05)
PROC: 0DJ08ZZ Inspection of Upper Intestinal Tract, Via Natural or Artificial Opening Endoscopic (ICD-10-PCS; principal; 2018-05-06)
DX: A41.9 Sepsis, unspecified organism (principal); K22.11 Ulcer of esophagus with bleeding; D62 Acute posthemorrhagic anemia; F15.20 Other stimulant dependence, uncomplicated; F17.200 Nicotine dependence, unspecified, uncomplicated; I10 Essential (primary) hypertension; F41.9 Anxiety disorder, unspecified; E11.9 Type 2 diabetes mellitus without complications; E87.6 Hypokalemia; K21.9 Gastro-esophageal reflux disease without esophagitis; D47.3 Essential (hemorrhagic) thrombocythemia; E66.9 Obesity, unspecified; Z72.89 Other problems related to lifestyle; Z68.27 Body mass index [BMI] 27.0-27.9, adult; Z87.11 Personal history of peptic ulcer disease; Z91.14 Patient's other noncompliance with medication regimen; Z79.899 Other long term (current) drug therapy
CPT/HCPCS: 36415; 71275; 74018; 74177; 80053; 80307; 81001; 82140; 82271; 83550; 83690; 83735; 84100; 85025; 85379; 85610; 85730; 86850; 86900; 86901; 86920; 87040; 93005; 93010; 99406; C9113; J2060; J2405; J2543; J2704; J3370; J3480; J7030; J7040; J7050; P9016; Q9967

== ENCOUNTER 2018-05-26 13:29 | Inpatient (IN) | payer OTHER ==
[2018-05-26] MEDS ORDERED: NACL 0.9% 1000 ML 1,000 ML IV ONE ×2 (13:57→13:59)
[2018-05-26] MEDS ORDERED: ZOFRAN IV ONE (13:57)
[2018-05-26] MEDS ORDERED: PROTONIX IV ONE ×2 (13:58→14:20)
--- NOTE | 2018-05-26 13:59 | Emergency Department Report ---
ED General Adult HPI - General Chief complaint: GI Bleed Stated complaint: VOMITTING/BLEEDING Time Seen by Provider: 05/26/18 13:57 Source: patient, EMS (ems notes not available at time of chart dictation), RN notes reviewed, old records reviewed Mode of arrival: Stretcher Limitations: No Limitations - History of Present Illness Initial comments: This is a 43-year-old gentleman whom I have evaluated in the past, with a history of endoscopically confirmed ulcerative esophagitis. He presents to the ER with a complaint of red hematemesis. Patient is a poor historian, and cannot describe duration of symptoms, exacerbating or relieving factors. He denies bright red blood per rectum and melena. He denies headache, neck pain, and lower abdominal pain. He admits to chronic back pain. -: Gradual Quality: other Consistency: other Improves with: other Worsens with: other Associated Symptoms: malaise, nausea/vomiting, weakness - Related Data Home Medications Medication Instructions Recorded Confirmed Last Taken ALPRAZolam [Xanax] 1 mg PO Q6HR PRN 05/04/18 05/04/18 Unknown HYDROcodone/ACETAMINOPHEN 5 tab PO Q6HR PRN 05/04/18 05/04/18 Unknown [Hydrocodone-Acetamin 5-325 mg] Previous Rx's Medication Instructions Recorded Last Taken Type Cyclobenzaprine [Flexeril 10 MG 10 mg PO BID PRN #20 tablet 04/17/18 Unknown Rx TAB] Menthol/Camphor [[place] 1 applicatio TP TID PRN #1 tube 04/17/18 Unknown Rx Ointment] Pantoprazole [Protonix TAB] 40 mg PO BID #60 tablet 05/06/18 Unknown Rx Sucralfate [Carafate] 1 gm PO ACHS #30 oral.liqd 05/06/18 Unknown Rx Allergies Allergy/AdvReac Type Severity Reaction Status Date / Time No Known Allergies Allergy Verified 04/19/18 07:21 ED Review of Systems ROS: Stated complaint: VOMITTING/BLEEDING Other details as noted in HPI Comment: poor historian Constitutional: malaise Cardiovascular: denies: syncope Gastrointestinal: abdominal pain, hematemesis Musculoskeletal: back pain Neurological: weakness Psychiatric: anxiety ED Past Medical Hx - Past Medical History Hx Hypertension: Yes Hx Congestive Heart Failure: No Hx Diabetes: Yes Hx Asthma: No Hx COPD: No Hx Dementia: No Additional medical history: Stomach ulcer//blood transfusions - Social History Smoking Status: Current Every Day Smoker - Medications Home Medications: Home Medications Medication Instructions Recorded Confirmed Last Taken Type Cyclobenzaprine [Flexeril 10 MG 10 mg PO BID PRN #20 tablet 04/17/18 05/04/18 Unknown Rx TAB] Menthol/Camphor [[place] 1 applicatio TP TID PRN #1 tube 04/17/18 05/04/18 Unknown Rx Ointment] ALPRAZolam [Xanax] 1 mg PO Q6HR PRN 05/04/18 05/04/18 Unknown History HYDROcodone/ACETAMINOPHEN 5 tab PO Q6HR PRN 05/04/18 05/04/18 Unknown History [Hydrocodone-Acetamin 5-325 mg] Pantoprazole [Protonix TAB] 40 mg PO BID #60 tablet 05/06/18 Unknown Rx Sucralfate [Carafate] 1 gm PO ACHS #30 oral.liqd 05/06/18 Unknown Rx ED Physical Exam - General General appearance: alert, in distress - Head Head exam: Present: atraumatic, normocephalic - Eye Eye exam: Present: normal appearance, EOMI. Absent: nystagmus - ENT ENT exam: Present: normal exam, normal orophraynx, mucous membranes moist, normal external ear exam - Neck Neck exam: Present: normal inspection, full ROM. Absent: tenderness, meningismus - Respiratory Respiratory exam: Present: normal lung sounds bilaterally. Absent: respiratory distress - Cardiovascular Cardiovascular Exam: Present: normal rhythm, tachycardia, normal heart sounds. Absent: systolic murmur, diastolic murmur, rubs, gallop - GI/Abdominal GI/Abdominal exam: Present: soft. Absent: distended, tenderness, guarding, rebound, rigid, pulsatile mass - Rectal Rectal exam: Absent: deferred (patient refused a rectal examination) - Extremities Exam Extremities exam: Present: normal inspection, full ROM, normal capillary refill , other (2+ pulses noted in the bilateral upper, lower extremities. Compartments soft. No long bony tenderness. The pelvis is stable.). Absent: pedal edema, joint swelling, calf tenderness - Back Exam Back exam: Present: normal inspection, full ROM. Absent: tenderness, CVA tenderness (R), paraspinal tenderness, vertebral tenderness - Neurological Exam Neurological exam: Present: alert, other (Extraocular movements intact. Tongue midline. No facial droop. Facial sensation intact to light touch in the V1, V2 , V3 distribution bilaterally. 5 and 5 strength in 4 extremities.. Sensation is intact to light touch in 4 extremities.). Absent: motor sensory deficit - Psychiatric Psychiatric exam: Present: anxious - Skin Skin exam: Present: warm, dry, intact, normal color. Absent: rash ED Course Vital Signs 05/26/18 14:06 Temperature 98.8 F Pulse Rate 113 H Respiratory 20 Rate Blood Pressure 105/58 Blood Pressure 105/58 [Right] O2 Sat by Pulse 97 Oximetry ED Medical Decision Making - Lab Data Result diagrams: 05/26/18 14:31 05/26/18 14:31 - EKG Data -: EKG Interpreted by Me EKG shows normal: sinus rhythm Rate: tachycardia - EKG Data 05/26/18 16:20 Sinus tachycardia, 103 bpm, motion artifact, QTC prolonged, not a stemi - Radiology Data Radiology results: report reviewed, image reviewed X-ray of the chest is negative for acute disease - Medical Decision Making Differential diagnosis, including but not limited to: Upper GI bleed, hematemesis Assessment and plan: 43-year-old male with recurrent hospitalizations and evaluations for presumed upper GI bleed. He had an upper endoscopy a few weeks ago. It showed ulcerative esophagitis. Patient had hypotension in the field with a blood pressure reportedly in the 60s. At one point in the ER his blood pressure was in the 80s. Currently it is in the low 100s. IV fluids, Protonix , Zofran, nothing by mouth status ordered. Leukocytosis and tachycardia appreciated. I doubt bacterial infection based on his current presentation. He is tachycardic most likely as a compensatory mechanism or his hemodynamic instability and profound anemia, with a hemoglobin, hematocrit of 4/14 The leukocytosis is most likely a stress reaction. Doubt active bacteremia. Case discussed with Hospital physician, Dr. Leslie who will admit the patient to the medical service. Case presented to critical care physician, Dr. Mejía , and gastroenterology, Dr. Vickers. They will see the patient in consultation. Critical Care Time: Yes Critical care time in (mins) excluding proc time.: 35 Critical care attestation.: If time is entered above; I have spent that time in minutes in the direct care of this critically ill patient, excluding procedure time. ED Disposition Clinical Impression: GI (gastrointestinal hemorrhage), Increased platelet count, Erosive esophagitis Disposition: DC-09 OP ADMIT IP TO THIS HOSP Is pt being admited?: Yes Condition: Fair Referrals: PRIMARY CARE, [Primary Care Provider] - 3-5 Days Forms: Accompanied Note
[2018-05-26] MEDS ORDERED: NACL 0.9% 1000 ML 2,000 ML ONE (14:01)
--- NOTE | 2018-05-26 14:43 | XRay Report ---
AP CHEST: HISTORY: GI bleeding Compared to 04/19/18. There appears to be mild pleural thickening along the left lung base medially which could represent segmental atelectasis or small left pleural effusion. This appears to be new since 04/19/18. The lungs are clear otherwise. Normal heart and mediastinal structures. IMPRESSION: Small left lower lobe opacity as described. I favor segmental atelectasis.
[2018-05-26 14:57] LABS: Basophils % (Auto) 0.3 % (0.0-1.8); Eosinophils % (Auto) 0.1 % (0.0-4.3); Lymphocytes # (Auto) 1.5 K/mm3 (1.2-5.4); Mean Corpuscular HGB Conc 30 % (32-34); Mean Corpuscular Hemoglobin 21 pg (28-32); Mean Corpuscular Volume 70 fl (84-94); Platelet Count 651 K/mm3 (140-440); Red Blood Count 2.09 M/mm3 (3.65-5.03); Red Cell Distribution Width 18.2 % (13.2-15.2)
[2018-05-26 15:04] LABS: Hematocrit 14.6 % (35.5-45.6); Hemoglobin 4.4 gm/dl (11.8-15.2)
[2018-05-26 15:13] LABS: Alanine Aminotransferase 5 units/L (7-56); Albumin 2.5 g/dL (3.9-5); BUN/Creatinine Ratio 30; Blood Urea Nitrogen 15 mg/dL (9-20); Calcium 8.2 mg/dL (8.4-10.2); Hemolysis Index 0; INR 1.31 (0.87-1.13); Partial Thromboplastin Time 34.7 Sec. (24.2-36.6)
[2018-05-26] MEDS ORDERED: NACL 0.9% 500 ML 500 ML IV ONE (15:18)
--- NOTE | 2018-05-26 15:43 | History and Physical Report ---
History of Present Illness Chief complaint: Im bleeding History of present illness: 43 YO Male with PUD, Gastritis, Nicotine Dependence, Amphetamine Abuse, Recurrent UGI Bleed presents to ED for evaluation. Pt states that he has experienced multiple episodes of coughing up blood over the past 24 hours as well as rectal bleeding. Patient denies fever, chills, CP, Palpitations, prolonged travel/immobility, calf tenderness, individual/family history of DVT/ PE. Pt see and evaluated in ED and found to have evidence of GI bleed , Sepsis, Pneumonia, and Blood loss anemia. Pt admitted to ICU and initiated on GI bleed protocol, and PRBC transfusion. GI consulted in ED . Past History Past Medical History: diabetes, GERD, hypertension Past Surgical History: No surgical history, Other (reviewed) Social history: smoking Family history: hypertension Medications and Allergies Allergies Allergy/AdvReac Type Severity Reaction Status Date / Time No Known Allergies Allergy Verified 04/19/18 07:21 Home Medications Medication Instructions Recorded Confirmed Last Taken Type Cyclobenzaprine [Flexeril 10 MG 10 mg PO BID PRN #20 tablet 04/17/18 05/04/18 Unknown Rx TAB] Menthol/Camphor [[place] 1 applicatio TP TID PRN #1 tube 04/17/18 05/04/18 Unknown Rx Ointment] ALPRAZolam [Xanax] 1 mg PO Q6HR PRN 05/04/18 05/04/18 Unknown History HYDROcodone/ACETAMINOPHEN 5 tab PO Q6HR PRN 05/04/18 05/04/18 Unknown History [Hydrocodone-Acetamin 5-325 mg] Pantoprazole [Protonix TAB] 40 mg PO BID #60 tablet 05/06/18 Unknown Rx Sucralfate [Carafate] 1 gm PO ACHS #30 oral.liqd 05/06/18 Unknown Rx Review of Systems Constitutional: no weight loss, no weight gain, no fever, no chills Ears, nose, mouth and throat: no ear pain, no ear discharge, no tinnitis, no decreased hearing, no nose pain, no nasal congestion Cardiovascular: no chest pain, no orthopnea, no palpitations, no rapid/ irregular heart beat, no edema Respiratory: hemoptysis, no cough, no cough with sputum, no excessive sputum Gastrointestinal: coffee ground emesis, BRBPR, no abdominal pain, no nausea, no vomiting, no diarrhea, no constipation Genitourinary Male: no dysuria, no hematuria, no flank pain, no discharge, no urinary frequency Rectal: no pain, no incontinence, no bleeding Musculoskeletal: no neck stiffness, no neck pain, no shooting arm pain, no arm numbness/tingling, no low back pain, no shooting leg pain Integumentary: no rash, no pruritis, no redness, no sores, no wounds, no jaundice Neurological: no head injury, no transient paralysis, no paralysis, no parathesias, no numbness, no tingling Psychiatric: no anxiety, no memory loss, no change in sleep habits, no sleep disturbances, no insomnia, no hypersomnia Endocrine: no cold intolerance, no heat intolerance, no excessive thirst, no polydipsia, no polyuria, no nocturia Hematologic/Lymphatic: no easy bruising, no easy bleeding, no lymphadenopathy, no lymphedema Allergic/Immunologic: no urticaria, no allergic rhinitis, no wheezing, no persistent infections, no anaphylaxis Exam - Constitutional Vitals: Temp Pulse Resp BP Pulse Ox 98.8 F 113 H 20 105/58 97 05/26/18 14:06 05/26/18 14:06 05/26/18 14:06 05/26/18 14:06 05/26/18 14:06 General appearance: Present: mild distress - EENT Eyes: Present: PERRL ENT: hearing intact, clear oral mucosa - Neck Neck: Present: supple, normal ROM - Respiratory Respiratory effort: normal Respiratory: bilateral: CTA - Cardiovascular Heart Sounds: Present: S1 & S2. Absent: rub, click - Extremities Extremities: pulses symmetrical, No edema Peripheral Pulses: within normal limits - Abdominal General gastrointestinal: Present: soft, non-tender, non-distended, normal bowel sounds Male genitourinary: Present: normal - Integumentary Integumentary: Present: clear, warm, dry - Musculoskeletal Musculoskeletal: gait normal, strength equal bilaterally - Psychiatric Psychiatric: appropriate mood/affect, intact judgment & insight - Neurologic Neurologic: CNII-XII intact, moves all extremities Results - Labs CBC & Chem 7: 05/27/18 04:41 05/26/18 14:31 Labs: Abnormal lab results 05/26/18 05/26/18 05/26/18 Range/Units 14:31 14:31 14:31 WBC 16.6 H (4.5-11.0) K/mm3 RBC 2.09 L (3.65-5.03) M/mm3 Hgb 4.4 L* (11.8-15.2) gm/dl Hct 14.6 L* (35.5-45.6) % MCV 70 L (84-94) fl MCH 21 L (28-32) pg MCHC 30 L (32-34) % RDW 18.2 H (13.2-15.2) % Plt Count 651 H (140-440) K/mm3 Lymph % (Auto) 9.0 L (13.4-35.0) % [place] # 1.0 H (0.0-0.8) K/mm3 Seg Neutrophils % 84.6 H (40.0-70.0) % Seg Neutrophils # 14.1 H (1.8-7.7) K/mm3 PT 16.8 H (12.2-14.9) Sec. INR 1.31 H (0.87-1.13) Sodium 136 L (137-145) mmol/L Creatinine 0.5 L (0.8-1.5) mg/dL Glucose 141 H (75-100) mg/dL Calcium 8.2 L (8.4-10.2) mg/dL ALT 5 L (7-56) units/L Total Protein 5.4 L (6.3-8.2) g/dL Albumin 2.5 L (3.9-5) g/dL Crossmatch 05/26/18 Range/Units 14:31 WBC (4.5-11.0) K/mm3 RBC (3.65-5.03) M/mm3 Hgb (11.8-15.2) gm/dl Hct (35.5-45.6) % MCV (84-94) fl MCH (28-32) pg MCHC (32-34) % RDW (13.2-15.2) % Plt Count (140-440) K/mm3 Lymph % (Auto) (13.4-35.0) % [place] # (0.0-0.8) K/mm3 Seg Neutrophils % (40.0-70.0) % Seg Neutrophils # (1.8-7.7) K/mm3 PT (12.2-14.9) Sec. INR (0.87-1.13) Sodium (137-145) mmol/L Creatinine (0.8-1.5) mg/dL Glucose (75-100) mg/dL Calcium (8.4-10.2) mg/dL ALT (7-56) units/L Total Protein (6.3-8.2) g/dL Albumin (3.9-5) g/dL Crossmatch See Detail Assessment and Plan - Patient Problems (1) Sepsis Current Visit: Yes Status: Acute Qualifiers: Sepsis type: sepsis due to unspecified organism Qualified Code(s): A41.9 - Sepsis, unspecified organism Plan to address problem: Sepsis protocol: IV antibiotics, IVF resuscitation, serial lactic acid level, monitor uop q shift, CBC, CMP, Urinlaysis, chest x ray. (2) Pneumonia Current Visit: Yes Status: Acute Qualifiers: Laterality: left Lung location: lower lobe of lung Plan to address problem: IV antibiotics, blood cultures, chext x ray, supplemental oxygen, nebulizer therapy, (3) Nicotine dependence with withdrawal Current Visit: Yes Status: Acute Qualifiers: Nicotine product type: cigarettes Qualified Code(s): F17.213 - Nicotine dependence, cigarettes, with withdrawal Plan to address problem: smoking cessation counseling (4) GI (gastrointestinal bleed) Current Visit: Yes Status: Acute Plan to address problem: PPI therapy, GI consulted in ED, serial cbc, endoscopy as per GI, Admit to ICU The high probability of a clinically significant, sudden or life threatening deterioration of the [Heme, cardiac, renal, respiratory] system(s) required my full and direct attention, intervention and personal management. The aggregate critical care time was [65] minutes. This time is in addition to time spent performing reported procedures but includes the following: [x] Data Review and interpretation [x] Patient assessment and monitoring of vital signs [x] Documentation [x] Medication orders and management (5) DVT prophylaxis Current Visit: Yes Status: Acute Plan to address problem: SCD to BLE while in bed
[2018-05-26] MEDS ORDERED: SODIUM CHLORIDE FLUSH SYRINGE 10 ML IV PRN (15:47)
[2018-05-26] MEDS ORDERED: NON-FORMULARY (Menthol/Camphor [Tiger Balm Ointment] 1 APPLICATIO) TP PRN (15:54)
[2018-05-26] MEDS ORDERED: NACL 0.9% 1000 ML IV ONE (15:56)
[2018-05-26] MEDS: NACL 0.9% 1000 ML 2,000 ML IV ONE ×2 (16:00→17:59)
--- NOTE | 2018-05-26 16:10 | Gastroenterology Consultation ---
History of Present Illness - Reason for Consult Consult date: 05/26/18 GI bleed Requesting physician: KORI GUTIERREZ - History of Present Illness Mr Castaneda is a 43 yo wm who presents with UGI bleeding. patient well known to GI service for prior admission for GI bleeding. He has had multiple EGD's done this year. Most recent EGD was done 3 weeks ago for CGE which showed severe ulcerative esophagitis. He did not have signs of a gastric or duodenal ulcer ( as seen on prior EGD) during most recent exam. Pt presents with 2-3 day history of dark blood emesis. Difficult to obtain detailed history from pt at the time of exam. His last episode of emesis was this morning. He has been taking ibuprofen for back pain and admits to continued substance abuse (meth). Denies abdominal pain or melena. Pt initially hypotensive and tachycardic on exam with hgb of 4 (down from 8 on last admission). His BP has since improved with IVF's and is awaiting blood transfusions. Past History Past Medical History: GERD, other (PUD, ulcerative esophagitis) Past Surgical History: No surgical history Social history: other (+ substance abuse) Family history: no significant family history Medications and Allergies Allergies Allergy/AdvReac Type Severity Reaction Status Date / Time No Known Allergies Allergy Verified 04/19/18 07:21 Home Medications Medication Instructions Recorded Confirmed Last Taken Type Cyclobenzaprine [Flexeril 10 MG 10 mg PO BID PRN #20 tablet 04/17/18 05/04/18 Unknown Rx TAB] Menthol/Camphor [[place] 1 applicatio TP TID PRN #1 tube 04/17/18 05/04/18 Unknown Rx Ointment] ALPRAZolam [Xanax] 1 mg PO Q6HR PRN 05/04/18 05/04/18 Unknown History HYDROcodone/ACETAMINOPHEN 5 tab PO Q6HR PRN 05/04/18 05/04/18 Unknown History [Hydrocodone-Acetamin 5-325 mg] Pantoprazole [Protonix TAB] 40 mg PO BID #60 tablet 05/06/18 Unknown Rx Sucralfate [Carafate] 1 gm PO ACHS #30 oral.liqd 05/06/18 Unknown Rx Active Meds: Active Medications Azithromycin 500 mg/ Sodium (Chloride) 250 mls @ 250 mls/hr IV Q24H CULLEN Ceftriaxone Sodium (Rocephin/Ns 2 Gm/100 Ml) 2 gm in 100 mls @ 200 mls/hr IV Q24H CULLEN; Protocol Sodium Chloride (Sodium Chloride Flush Syringe 10 Ml) 10 ml IV BID CULLEN Sodium Chloride (Sodium Chloride Flush Syringe 10 Ml) 10 ml IV PRN PRN PRN Reason: LINE FLUSH Sucralfate (Carafate) 1 gm PO ACHS CULLEN Review of Systems - Review of Systems All systems: negative (per HPI) Exam - Constitutional Vital Signs: Temp Pulse Resp BP Pulse Ox 98.8 F 113 H 20 105/58 97 05/26/18 14:06 05/26/18 14:06 05/26/18 14:06 05/26/18 14:06 05/26/18 14:06 General appearance: no acute distress, disheveled - EENT Eyes: PERRL, EOM intact ENT: poor dentition - Neck Neck: supple - Respiratory Respiratory effort: normal Respiratory: bilateral: CTA - Cardiovascular Rhythm: regular Heart Sounds: Present: S1 & S2 - Gastrointestinal General gastrointestinal: Present: soft, non-tender, non-distended - Integumentary Integumentary: Present: clear, dry - Musculoskeletal Musculoskeletal: normal - Neurologic Neurological: other (no focal deficits) - Labs CBC & Chem 7: 05/26/18 14:31 05/26/18 14:31 Lab Results: Laboratory Results - last 24 hr 05/26/18 05/26/18 05/26/18 14:31 14:31 14:31 WBC 16.6 H RBC 2.09 L Hgb 4.4 L* Hct 14.6 L* MCV 70 L MCH 21 L MCHC 30 L RDW 18.2 H Plt Count 651 H Lymph % (Auto) 9.0 L Dundy % (Auto) 6.0 Eos % (Auto) 0.1 Baso % (Auto) 0.3 Lymph # 1.5 [place] # 1.0 H Eos # 0.0 Baso # 0.0 Seg Neutrophils % 84.6 H Seg Neutrophils # 14.1 H PT 16.8 H INR 1.31 H APTT 34.7 Sodium 136 L Potassium 3.9 Chloride 100.1 Carbon Dioxide 27 Anion Gap 13 BUN 15 Creatinine 0.5 L Estimated GFR > 60 BUN/Creatinine Ratio 30 Glucose 141 H Calcium 8.2 L Total Bilirubin 0.30 AST 8 ALT 5 L Alkaline Phosphatase 49 Total Protein 5.4 L Albumin 2.5 L Albumin/Globulin Ratio 0.9 Blood Type Antibody Screen Crossmatch 05/26/18 14:31 WBC RBC Hgb Hct MCV MCH MCHC RDW Plt Count Lymph % (Auto) [place] % (Auto) Eos % (Auto) Baso % (Auto) Lymph # Dundy # Eos # Baso # Seg Neutrophils % Seg Neutrophils # PT INR APTT Sodium Potassium Chloride Carbon Dioxide Anion Gap BUN Creatinine Estimated GFR BUN/Creatinine Ratio Glucose Calcium Total Bilirubin AST ALT Alkaline Phosphatase Total Protein Albumin Albumin/Globulin Ratio Blood Type O POSITIVE Antibody Screen Negative Crossmatch See Detail Assessment and Plan 1. UGI bleed 2. Acute on chronic anemia 3. H/o ulcerative esophagitis and PUD 4. Substance abuse -pt with recurrent episodes/admissions for UGI bleed. He last had upper endoscopy 3 weeks ago that showed severe ulcerative esophagitis but no gastric or duodenal ulcer. continues to consume nsaid's and substance abuse. will need EGD (plan for the morning or earlier if needed) following resuscitation measures (awaiting blood transfusions). Cont IV PPI and trend labs. Keep NPO
[2018-05-26 17:01] LABS: Color,Urine Yellow (Yellow)
[2018-05-26 17:02] LABS: Bilirubin,Urine Negative (Negative); Blood,Urine Negative (Negative); Protein,Urine <15 mg/dL mg/dL (Negative); WBC,Urine < 1.0 /HPF (0.0-6.0)
[2018-05-26] MEDS: ROCEPHIN/NS 2 GM/100 ML 2 GM/100 ML BAG IV SCH (20:00)
[2018-05-26] MEDS: CARAFATE PO SCH ×2 (20:00→23:40)
[2018-05-26] MEDS: ZITHROMAX 500 MG in NACL 0.9% 250ML 250 ML IV SCH (20:01)
[2018-05-26] MEDS ORDERED: NACL 0.9% 250ML 250 ML ONE (20:58)
[2018-05-26] MEDS: SODIUM CHLORIDE FLUSH SYRINGE 10 ML IV SCH (22:51)
[2018-05-27 05:15] LABS: Basophils # (Auto) 0.1 K/mm3 (0.0-0.1); Basophils % (Auto) 0.5 % (0.0-1.8); Eosinophils # (Auto) 0.1 K/mm3 (0.0-0.4); Eosinophils % (Auto) 1.2 % (0.0-4.3); Hematocrit 21.6 % (35.5-45.6); Hemoglobin 6.9 gm/dl (11.8-15.2); Lymphocytes # (Auto) 1.6 K/mm3 (1.2-5.4); Lymphocytes % (Auto) 13.3 % (13.4-35.0); Mean Corpuscular HGB Conc 32 % (32-34); Mean Corpuscular Volume 76 fl (84-94); Monocytes # (Auto) 0.7 K/mm3 (0.0-0.8); Monocytes % (Auto) 5.5 % (0.0-7.3); Platelet Count 523 K/mm3 (140-440); Red Blood Count 2.83 M/mm3 (3.65-5.03)
[2018-05-27 05:21] LABS: Mean Corpuscular Hemoglobin 24 pg (28-32); Red Cell Distribution Width 20.8 % (13.2-15.2)
[2018-05-27] MEDS ORDERED: NACL 0.9% 250ML 250 ML IV ONE (06:00)
[2018-05-27] MEDS ORDERED: WATER FOR IRRIG STERILE ONE (07:32)
[2018-05-27] MEDS ORDERED: WATER FOR IRRIG STERILE IR ONE (07:32)
[2018-05-27] MEDS ORDERED: ADRENALIN ONE (07:39)
[2018-05-27] MEDS ORDERED: NACL 0.9% 1000 ML 1,000 ML ONE (07:39)
[2018-05-27] MEDS ORDERED: DIPRIVAN 10 MG/ML IV ONE ×3 (08:10→08:24)
[2018-05-27] MEDS ORDERED: NACL 0.9% 500 ML 500 ML IV NR (08:30)
--- NOTE | 2018-05-27 09:13 | Operative Report ---
Operative Report Operative Report: Esophagogastroduodenoscopy Procedure Note Date of procedure: 05/27/2018 Endoscopist: Devin Vickers Pre-op diagnosis: UGI bleed Post-op diagnosis: severe ulcerative esophagitis with signs of early necrosis. multiple heme spots and clots in the esophagus Anesthesia: MAC Complications: No immediate complications Estimated blood loss: None Procedure: After consent was obtained, the patient was placed in the left lateral decubitus position. The fujinon endoscope was inserted into the patient 's mouth under direct vision, and advanced into the 2nd portion of the duodenum without difficulty. The patient tolerated the procedure well. The views of the mucosa were good. Patient's vital signs were monitored continuously throughout the procedure. Findings: There was severe ulcerative esophagitis beginning in the proximal esophagus. Starting in the mid esophagus, the mucosa was circumferentially ulcerated which extended to the GE junction. There were signs of early necrosis in parts of the esophagus. There were multiple heme spots and blood clots in the mid and distal esophagus. There was not a lesion that was felt to be amenable to endoscopic treatment given diffuseness of bleeding source along with potential risks with intervention due to severity of ulcerations/possible early necrosis. No significant findings and the stomach. The mucosa in the duodenal bulb was inflamed and erythematous but no obvious bleeding source otherwise was identified in the stomach or esophagus. Impression: 1. Severe ulcerative esophagitis with bleeding stigmata (heme spots and some clots) that was not amenable to endoscopic treatment. No active bleeding 2. Possible early necrosis signs of the esophagus Recommendations: -Continue IV PPI drip -continue carafate QID -NO NG tube -consider CT of chest -keep NPO for time being
[2018-05-27] MEDS: CARAFATE PO SCH ×4 (10:40→22:54)
[2018-05-27] MEDS: PROTONIX 80 MG in NACL 0.9% 100 ML IV SCH ×2 (12:30→23:21)
--- NOTE | 2018-05-27 12:50 | Consultation ---
History of Present Illness Consult date: 05/27/18 Requesting physician: KORI GUTIERREZ Reason for consult: other (Acute GI Bleed) History of present illness: PULMONARY/CCM CONSULT NOTE (Full dictation # [id number]) Please see dictated notes for full details Past History Past Medical History: diabetes, GERD, hypertension Past Surgical History: No surgical history, Other (reviewed) Social history: smoking Family history: hypertension Medications and Allergies Allergies Allergy/AdvReac Type Severity Reaction Status Date / Time No Known Allergies Allergy Verified 04/19/18 07:21 Home Medications Medication Instructions Recorded Confirmed Last Taken Type Cyclobenzaprine [Flexeril 10 MG 10 mg PO BID PRN #20 tablet 04/17/18 05/04/18 Unknown Rx TAB] Menthol/Camphor [[place] 1 applicatio TP TID PRN #1 tube 04/17/18 05/04/18 Unknown Rx Ointment] ALPRAZolam [Xanax] 1 mg PO Q6HR PRN 05/04/18 05/04/18 Unknown History HYDROcodone/ACETAMINOPHEN 5 tab PO Q6HR PRN 05/04/18 05/04/18 Unknown History [Hydrocodone-Acetamin 5-325 mg] Pantoprazole [Protonix TAB] 40 mg PO BID #60 tablet 05/06/18 Unknown Rx Sucralfate [Carafate] 1 gm PO ACHS #30 oral.liqd 05/06/18 Unknown Rx Active Meds: Active Medications Azithromycin 500 mg/ Sodium (Chloride) 250 mls @ 250 mls/hr IV Q24H CULLEN Last Admin: 05/26/18 20:01 Dose: 250 mls/hr Ceftriaxone Sodium (Rocephin/Ns 2 Gm/100 Ml) 2 gm in 100 mls @ 200 mls/hr IV Q24H CULLEN; Protocol Last Admin: 05/26/18 20:00 Dose: 200 mls/hr Sodium Chloride (Nacl 0.9% 500 Ml) 500 mls @ 0 mls/hr IV ONCE NR Stop: 05/27/18 13:00 Pantoprazole Sodium 80 mg/ (Sodium Chloride) 100 mls @ 10 mls/hr IV DIRECT CULLEN Sodium Chloride (Sodium Chloride Flush Syringe 10 Ml) 10 ml IV BID CULLEN Last Admin: 05/26/18 22:51 Dose: 10 ml Sodium Chloride (Sodium Chloride Flush Syringe 10 Ml) 10 ml IV PRN PRN PRN Reason: LINE FLUSH Sucralfate (Carafate) 1 gm PO ACHS CULLEN Last Admin: 05/27/18 10:40 Dose: Not Given Physical Examination Vital signs: Vital Signs Temp Pulse Resp BP Pulse Ox 98.8 F 113 H 20 105/58 97 05/26/18 14:06 05/26/18 14:06 05/26/18 14:06 05/26/18 14:06 05/26/18 14:06 Results - Laboratory Findings CBC and BMP: 05/27/18 04:41 05/26/18 14:31 PT/INR, D-dimer PT 16.8 Sec. (12.2-14.9) H 05/26/18 14:31 INR 1.31 (0.87-1.13) H 05/26/18 14:31 Abnormal lab findings: Abnormal Labs 05/26/18 05/26/18 05/26/18 14:31 14:31 14:31 WBC 16.6 H RBC 2.09 L Hgb 4.4 L* Hct 14.6 L* MCV 70 L MCH 21 L MCHC 30 L RDW 18.2 H Plt Count 651 H Lymph % (Auto) 9.0 L Wise # 1.0 H Seg Neutrophils % 84.6 H Seg Neutrophils # 14.1 H PT 16.8 H INR 1.31 H Sodium 136 L Creatinine 0.5 L Glucose 141 H Calcium 8.2 L ALT 5 L Total Protein 5.4 L Albumin 2.5 L Crossmatch 05/26/18 05/27/18 14:31 04:41 WBC 12.0 H RBC 2.83 L Hgb 6.9 L Hct 21.6 L D MCV 76 L MCH 24 L MCHC RDW 20.8 H Plt Count 523 H Lymph % (Auto) 13.3 L Wise # Seg Neutrophils % 79.5 H Seg Neutrophils # 9.5 H PT INR Sodium Creatinine Glucose Calcium ALT Total Protein Albumin Crossmatch See Detail
--- NOTE | 2018-05-27 12:58 | Progress Note ---
Subjective Date of service: 05/27/18 Objective - Constitutional Vitals: Vital Signs - 12hr 05/27/18 05/27/18 05/27/18 01:00 01:11 01:21 Temperature Pulse Rate 105 H 83 109 H Respiratory 23 24 22 Rate Blood Pressure 96/54 98/55 98/55 O2 Sat by Pulse 96 97 99 Oximetry 05/27/18 05/27/18 05/27/18 01:30 01:41 01:51 Temperature Pulse Rate 102 H 103 H 106 H Respiratory 21 19 21 Rate Blood Pressure 93/49 96/54 96/54 O2 Sat by Pulse 98 97 96 Oximetry 05/27/18 05/27/18 05/27/18 02:00 02:11 02:21 Temperature Pulse Rate 105 H 101 H 101 H Respiratory 22 19 19 Rate Blood Pressure 87/44 87/44 99/62 O2 Sat by Pulse 97 100 98 Oximetry 05/27/18 05/27/18 05/27/18 02:31 02:41 02:51 Temperature Pulse Rate 98 H 97 H 100 H Respiratory 18 22 17 Rate Blood Pressure 98/59 101/64 101/64 O2 Sat by Pulse 99 98 97 Oximetry 05/27/18 05/27/18 05/27/18 03:00 03:11 03:21 Temperature Pulse Rate 70 77 76 Respiratory 25 H 20 22 Rate Blood Pressure 110/69 110/69 110/69 O2 Sat by Pulse 99 98 99 Oximetry 05/27/18 05/27/18 05/27/18 03:31 03:41 03:51 Temperature Pulse Rate 71 97 H 100 H Respiratory 28 H 19 19 Rate Blood Pressure 110/69 110/69 110/69 O2 Sat by Pulse 98 98 98 Oximetry 05/27/18 05/27/18 05/27/18 04:00 04:11 04:21 Temperature 98.4 F Pulse Rate 99 H 97 H 93 H Respiratory 20 19 19 Rate Blood Pressure 83/41 83/41 83/41 O2 Sat by Pulse 99 99 99 Oximetry 05/27/18 05/27/18 05/27/18 04:31 04:41 04:51 Temperature Pulse Rate 96 H 95 H 96 H Respiratory 21 19 16 Rate Blood Pressure 83/41 96/57 96/57 O2 Sat by Pulse 97 98 98 Oximetry 05/27/18 05/27/18 05/27/18 05:00 05:11 05:21 Temperature Pulse Rate 97 H 94 H 69 Respiratory 18 24 23 Rate Blood Pressure 104/66 104/66 104/66 O2 Sat by Pulse 98 98 100 Oximetry 05/27/18 05/27/18 05/27/18 05:31 05:41 05:50 Temperature 98.8 F Pulse Rate 71 70 89 Respiratory 23 24 17 Rate Blood Pressure 104/66 104/66 95/58 O2 Sat by Pulse 100 98 100 Oximetry 05/27/18 05/27/18 05/27/18 05:51 06:00 06:05 Temperature 98.6 F Pulse Rate 93 H 95 H 97 H Respiratory 19 16 19 Rate Blood Pressure 104/66 95/58 104/63 O2 Sat by Pulse 98 100 100 Oximetry 05/27/18 05/27/18 05/27/18 06:11 06:21 06:30 Temperature Pulse Rate 91 H 91 H 91 H Respiratory 19 19 17 Rate Blood Pressure 104/66 104/63 108/71 O2 Sat by Pulse 99 98 98 Oximetry 05/27/18 05/27/18 05/27/18 06:35 06:41 06:51 Temperature 99.2 F Pulse Rate 87 87 94 H Respiratory 19 20 18 Rate Blood Pressure 108/71 108/71 108/71 O2 Sat by Pulse 99 99 98 Oximetry 05/27/18 05/27/18 05/27/18 07:03 07:05 07:10 Temperature 99.6 F Pulse Rate 93 H 88 87 Respiratory 18 18 18 Rate Blood Pressure 112/74 O2 Sat by Pulse 98 99 99 Oximetry 05/27/18 05/27/18 05/27/18 07:20 07:30 07:40 Temperature Pulse Rate 78 94 H 94 H Respiratory 18 21 14 Rate Blood Pressure 112/74 115/76 115/76 O2 Sat by Pulse 98 97 97 Oximetry 05/27/18 05/27/18 05/27/18 07:50 08:00 08:10 Temperature 98.1 F Pulse Rate 85 85 82 Respiratory 17 17 18 Rate Blood Pressure 115/76 98/52 98/52 O2 Sat by Pulse 97 100 100 Oximetry 05/27/18 05/27/18 05/27/18 08:20 08:30 08:40 Temperature Pulse Rate 96 H 87 93 H Respiratory 16 16 19 Rate Blood Pressure 96/53 85/49 78/54 O2 Sat by Pulse 98 97 100 Oximetry 05/27/18 05/27/18 05/27/18 08:50 09:00 09:01 Temperature 98.2 F Pulse Rate 96 H 93 H 93 H Respiratory 18 17 16 Rate Blood Pressure 85/49 78/48 78/48 O2 Sat by Pulse 100 98 94 Oximetry 05/27/18 05/27/18 05/27/18 09:06 09:10 09:15 Temperature Pulse Rate 94 H 94 H 97 H Respiratory 17 26 H 18 Rate Blood Pressure 88/45 80/51 89/47 O2 Sat by Pulse 99 95 97 Oximetry 05/27/18 05/27/18 05/27/18 09:20 09:29 09:30 Temperature 98.2 F Pulse Rate 93 H 92 H 93 H Respiratory 26 H 19 22 Rate Blood Pressure 94/57 96/53 111/75 O2 Sat by Pulse 95 96 98 Oximetry 05/27/18 05/27/18 05/27/18 09:40 09:50 10:00 Temperature Pulse Rate 93 H 93 H 87 Respiratory 19 21 24 Rate Blood Pressure 109/73 111/76 93/50 O2 Sat by Pulse 98 97 99 Oximetry 05/27/18 05/27/18 05/27/18 10:10 10:20 10:30 Temperature Pulse Rate 95 H 90 92 H Respiratory 17 19 19 Rate Blood Pressure 104/56 98/60 111/71 O2 Sat by Pulse 100 97 97 Oximetry 05/27/18 05/27/18 05/27/18 10:40 10:50 11:00 Temperature Pulse Rate 87 87 Respiratory 18 17 Rate Blood Pressure 113/72 98/51 98/51 O2 Sat by Pulse 97 98 Oximetry 05/27/18 05/27/18 05/27/18 11:30 11:40 11:50 Temperature Pulse Rate 90 93 H 88 Respiratory 17 20 Rate Blood Pressure 99/82 99/82 99/82 O2 Sat by Pulse 99 99 98 Oximetry - Labs CBC & Chem 7: 05/27/18 04:41 05/26/18 14:31 Labs: Abnormal lab results 05/26/18 05/26/18 05/26/18 Range/Units 14:31 14:31 14:31 WBC 16.6 H (4.5-11.0) K/mm3 RBC 2.09 L (3.65-5.03) M/mm3 Hgb 4.4 L* (11.8-15.2) gm/dl Hct 14.6 L* (35.5-45.6) % MCV 70 L (84-94) fl MCH 21 L (28-32) pg MCHC 30 L (32-34) % RDW 18.2 H (13.2-15.2) % Plt Count 651 H (140-440) K/mm3 Lymph % (Auto) 9.0 L (13.4-35.0) % Gregory # 1.0 H (0.0-0.8) K/mm3 Seg Neutrophils % 84.6 H (40.0-70.0) % Seg Neutrophils # 14.1 H (1.8-7.7) K/mm3 PT 16.8 H (12.2-14.9) Sec. INR 1.31 H (0.87-1.13) Sodium 136 L (137-145) mmol/L Creatinine 0.5 L (0.8-1.5) mg/dL Glucose 141 H (75-100) mg/dL Calcium 8.2 L (8.4-10.2) mg/dL ALT 5 L (7-56) units/L Total Protein 5.4 L (6.3-8.2) g/dL Albumin 2.5 L (3.9-5) g/dL Crossmatch 05/26/18 05/27/18 Range/Units 14:31 04:41 WBC 12.0 H (4.5-11.0) K/mm3 RBC 2.83 L (3.65-5.03) M/mm3 Hgb 6.9 L (11.8-15.2) gm/dl Hct 21.6 L D (35.5-45.6) % MCV 76 L (84-94) fl MCH 24 L (28-32) pg MCHC (32-34) % RDW 20.8 H (13.2-15.2) % Plt Count 523 H (140-440) K/mm3 Lymph % (Auto) 13.3 L (13.4-35.0) % Gregory # (0.0-0.8) K/mm3 Seg Neutrophils % 79.5 H (40.0-70.0) % Seg Neutrophils # 9.5 H (1.8-7.7) K/mm3 PT (12.2-14.9) Sec. INR (0.87-1.13) Sodium (137-145) mmol/L Creatinine (0.8-1.5) mg/dL Glucose (75-100) mg/dL Calcium (8.4-10.2) mg/dL ALT (7-56) units/L Total Protein (6.3-8.2) g/dL Albumin (3.9-5) g/dL Crossmatch See Detail
--- NOTE | 2018-05-27 13:39 | Cat Scan Report ---
FINAL REPORT EXAM: CT CHEST W CON HISTORY: esophageal necrosis TECHNIQUE: CT of chest with IV contrast. Coronal and sagittal reconstructed images provided. PRIORS: CT abdomen pelvis May 04, 2018. FINDINGS: Moderate bilateral pleural effusions with adjacent areas of compressive atelectasis. Scattered infiltrates or areas of discoid subsegmental atelectasis the lower lobes, lingula, and right middle lobe. No pneumothorax. No distinct endobronchial lesions. Main pulmonary artery is unremarkable. No aortic aneurysm. No dissection. Major branch arteries are within normal limits. Heart size unremarkable. No pericardial effusion. Anasarca. Images of thyroid are unremarkable. Axillary regions are unremarkable. Prominent subcarinal lymph node measures 23 x 10 mm. No mediastinal mass or adenopathy. Hilar regions are unremarkable. Distal 3rd esophagus demonstrates a fluid collection measuring 14 x 9 mm with a craniocaudal dimension of 21 mm. Slight rim enhancement noted. Small adjacent pocket of gas identified. Diffuse esophageal wall thickening particularly at the lower half the esophagus identified. Moderate hiatal hernia. There may be some wall thickening around the fundus of the stomach. Stomach appears slightly hyperemic diffusely. Metallic artifacts around the distal aspect of the esophagus may represent embolization coils this causes streak artifact and limits evaluation. Prominent perigastric or periportal lymph node measures 1.3 cm. No suspicious osseous lesions on this limited examination of the skeleton. Metastatic disease better evaluated with bone scan. Degenerative changes are present in the spine. IMPRESSION: Notable wall thickening of distal esophagus with stranding suggests esophagitis. Fluid collection with small pocket of gas may represent a intramural phlegmon, abscess, or esophageal ulcer/tear. Differential diagnosis does include malignancy. Worse compared to prior. Thickening around the gastroesophageal junction and hyperemia of the stomach may represent gastritis. Moderate hiatal hernia. Probable reactive subcarinal lymph node. Moderate bilateral pleural effusions with adjacent areas of subsegmental atelectasis. Scattered focal infiltrates or subsegmental atelectasis in both lower lobes, right middle lobe, and lingula. May 27, 2018 at 1038 PDT: I discussed the findings over phone with NAEEM Mooney.
[2018-05-27 13:49] LABS: Benzodiazepines Screen,Urine PRESUMPTIVE NEGATIVE; Cannabinoid Screen,Urine PRESUMPTIVE NEGATIVE; Cocaine Screen,Urine PRESUMPTIVE NEGATIVE; Methadone Screen,Urine PRESUMPTIVE NEGATIVE; Opiate Screen,Urine PRESUMPTIVE NEGATIVE
[2018-05-27 14:09] LABS: Amphetamine Screen,Urine PRESUMPTIVE POSITIVE
[2018-05-27] MEDS: D5NS 1,000 ML IV SCH ×2 (14:37→23:22)
[2018-05-27 14:55] LABS: Hematocrit 27.3 % (35.5-45.6); Hemoglobin 8.8 gm/dl (11.8-15.2)
--- NOTE | 2018-05-27 16:20 | Progress Note ---
Assessment and Plan / GI (gastrointestinal bleed) PPI therapy, GI consulted in ED, serial h and h , endoscopy as per GI showed errosive esophagitis Start on clear liquid today / Sepsis likely from B/L PNA Sepsis protocol: IV antibiotics, IVF resuscitation, serial lactic acid level / B/L Pneumonia cont IV antibiotics now, supplemental oxygen, nebulizer therapy, / Nicotine abuse smoking cessation counseling / DVT prophylaxis SCD to BLE while in bed Radiological data: CT chest w contrast: Notable wall thickening of distal esophagus with stranding suggests esophagitis. Fluid collection with small pocket of gas may represent a intramural phlegmon, abscess, or esophageal ulcer/tear. Differential diagnosis does include malignancy. Worse compared to prior. Thickening around the gastroesophageal junction and hyperemia of the stomach may represent gastritis. Moderate hiatal hernia. Probable reactive subcarinal lymph node. Moderate bilateral pleural effusions with adjacent areas of subsegmental atelectasis. Scattered focal infiltrates or subsegmental atelectasis in both lower lobes, right middle lobe, and lingula. Subjective Date of service: 05/27/18 Interval history: patient seen and examined s/p EGD today no active bleeding Objective - Constitutional Vitals: Vital Signs - 12hr 05/27/18 05/27/18 05/27/18 04:21 04:31 04:41 Temperature Pulse Rate 93 H 96 H 95 H Respiratory 19 21 19 Rate Blood Pressure 83/41 83/41 96/57 O2 Sat by Pulse 99 97 98 Oximetry 05/27/18 05/27/18 05/27/18 04:51 05:00 05:11 Temperature Pulse Rate 96 H 97 H 94 H Respiratory 16 18 24 Rate Blood Pressure 96/57 104/66 104/66 O2 Sat by Pulse 98 98 98 Oximetry 05/27/18 05/27/18 05/27/18 05:21 05:31 05:41 Temperature Pulse Rate 69 71 70 Respiratory 23 23 24 Rate Blood Pressure 104/66 104/66 104/66 O2 Sat by Pulse 100 100 98 Oximetry 05/27/18 05/27/18 05/27/18 05:50 05:51 06:00 Temperature 98.8 F Pulse Rate 89 93 H 95 H Respiratory 17 19 16 Rate Blood Pressure 95/58 104/66 95/58 O2 Sat by Pulse 100 98 100 Oximetry 05/27/18 05/27/18 05/27/18 06:05 06:11 06:21 Temperature 98.6 F Pulse Rate 97 H 91 H 91 H Respiratory 19 19 19 Rate Blood Pressure 104/63 104/66 104/63 O2 Sat by Pulse 100 99 98 Oximetry 05/27/18 05/27/18 05/27/18 06:30 06:35 06:41 Temperature 99.2 F Pulse Rate 91 H 87 87 Respiratory 17 19 20 Rate Blood Pressure 108/71 108/71 108/71 O2 Sat by Pulse 98 99 99 Oximetry 05/27/18 05/27/18 05/27/18 06:51 07:03 07:05 Temperature 99.6 F Pulse Rate 94 H 93 H 88 Respiratory 18 18 18 Rate Blood Pressure 108/71 112/74 O2 Sat by Pulse 98 98 99 Oximetry 05/27/18 05/27/18 05/27/18 07:10 07:20 07:30 Temperature Pulse Rate 87 78 94 H Respiratory 18 18 21 Rate Blood Pressure 112/74 115/76 O2 Sat by Pulse 99 98 97 Oximetry 05/27/18 05/27/18 05/27/18 07:40 07:50 08:00 Temperature 98.1 F Pulse Rate 94 H 85 85 Respiratory 14 17 17 Rate Blood Pressure 115/76 115/76 98/52 O2 Sat by Pulse 97 97 100 Oximetry 05/27/18 05/27/18 05/27/18 08:10 08:20 08:30 Temperature Pulse Rate 82 96 H 87 Respiratory 18 16 16 Rate Blood Pressure 98/52 96/53 85/49 O2 Sat by Pulse 100 98 97 Oximetry 05/27/18 05/27/18 05/27/18 08:40 08:50 09:00 Temperature Pulse Rate 93 H 96 H 93 H Respiratory 19 18 17 Rate Blood Pressure 78/54 85/49 78/48 O2 Sat by Pulse 100 100 98 Oximetry 05/27/18 05/27/18 05/27/18 09:01 09:06 09:10 Temperature 98.2 F Pulse Rate 93 H 94 H 94 H Respiratory 16 17 26 H Rate Blood Pressure 78/48 88/45 80/51 O2 Sat by Pulse 94 99 95 Oximetry 05/27/18 05/27/18 05/27/18 09:15 09:20 09:29 Temperature 98.2 F Pulse Rate 97 H 93 H 92 H Respiratory 18 26 H 19 Rate Blood Pressure 89/47 94/57 96/53 O2 Sat by Pulse 97 95 96 Oximetry 05/27/18 05/27/18 05/27/18 09:30 09:40 09:50 Temperature Pulse Rate 93 H 93 H 93 H Respiratory 22 19 21 Rate Blood Pressure 111/75 109/73 111/76 O2 Sat by Pulse 98 98 97 Oximetry 05/27/18 05/27/18 05/27/18 10:00 10:10 10:20 Temperature Pulse Rate 87 95 H 90 Respiratory 24 17 19 Rate Blood Pressure 93/50 104/56 98/60 O2 Sat by Pulse 99 100 97 Oximetry 05/27/18 05/27/18 05/27/18 10:30 10:40 10:50 Temperature Pulse Rate 92 H 87 87 Respiratory 19 18 17 Rate Blood Pressure 111/71 113/72 98/51 O2 Sat by Pulse 97 97 98 Oximetry 05/27/18 05/27/18 05/27/18 11:00 11:30 11:40 Temperature Pulse Rate 90 93 H Respiratory 17 Rate Blood Pressure 98/51 99/82 99/82 O2 Sat by Pulse 99 99 Oximetry 05/27/18 05/27/18 05/27/18 11:50 12:00 12:10 Temperature 98.4 F Pulse Rate 88 87 61 Respiratory 20 18 15 Rate Blood Pressure 99/82 94/55 94/55 O2 Sat by Pulse 98 98 99 Oximetry 05/27/18 05/27/18 05/27/18 12:20 12:30 12:40 Temperature Pulse Rate 85 88 93 H Respiratory 19 11 L 16 Rate Blood Pressure 94/55 96/57 96/57 O2 Sat by Pulse 99 99 100 Oximetry 05/27/18 05/27/18 05/27/18 12:50 13:00 13:10 Temperature Pulse Rate 85 82 79 Respiratory 17 17 18 Rate Blood Pressure 98/59 96/55 96/55 O2 Sat by Pulse 99 95 96 Oximetry 05/27/18 05/27/18 05/27/18 13:20 13:30 13:40 Temperature Pulse Rate 81 86 88 Respiratory 17 21 26 H Rate Blood Pressure 103/60 103/61 103/61 O2 Sat by Pulse 100 99 100 Oximetry 05/27/18 05/27/18 05/27/18 13:50 14:00 14:10 Temperature Pulse Rate 83 83 77 Respiratory 18 16 15 Rate Blood Pressure 104/71 112/73 112/73 O2 Sat by Pulse 100 100 100 Oximetry 05/27/18 05/27/18 05/27/18 14:20 14:30 14:40 Temperature Pulse Rate 84 80 88 Respiratory 17 17 21 Rate Blood Pressure 104/58 99/57 99/57 O2 Sat by Pulse 98 98 99 Oximetry 05/27/18 05/27/18 14:50 15:00 Temperature Pulse Rate 88 92 H Respiratory 20 18 Rate Blood Pressure 104/61 113/67 O2 Sat by Pulse 100 100 Oximetry General appearance: Present: no acute distress - EENT Eyes: PERRL, EOM intact ENT: hearing intact, clear oral mucosa Ears: bilateral: normal - Neck Neck: supple, normal ROM - Respiratory Respiratory effort: normal Respiratory: bilateral: CTA - Cardiovascular Rhythm: regular Heart Sounds: Present: S1 & S2. Absent: gallop, rub Extremities: pulses intact, No edema, normal color, Full ROM - Gastrointestinal General gastrointestinal: Present: soft, non-tender, non-distended, normal bowel sounds - Integumentary Integumentary: clear, warm, dry - Musculoskeletal Musculoskeletal: 1, strength equal bilaterally - Neurologic Neurologic: moves all extremities - Psychiatric Psychiatric: cooperative - Labs CBC & Chem 7: 05/27/18 14:26 05/26/18 14:31 Labs: Abnormal lab results 05/26/18 05/27/18 05/27/18 Range/Units 14:31 04:41 14:26 WBC 12.0 H (4.5-11.0) K/mm3 RBC 2.83 L (3.65-5.03) M/mm3 Hgb 6.9 L 8.8 L (11.8-15.2) gm/dl Hct 21.6 L D 27.3 L (35.5-45.6) % MCV 76 L (84-94) fl MCH 24 L (28-32) pg RDW 20.8 H (13.2-15.2) % Plt Count 523 H (140-440) K/mm3 Lymph % (Auto) 13.3 L (13.4-35.0) % Seg Neutrophils % 79.5 H (40.0-70.0) % Seg Neutrophils # 9.5 H (1.8-7.7) K/mm3 Crossmatch See Detail - Imaging and cardiology CT scan - chest: report reviewed
[2018-05-27] MEDS: ROCEPHIN/NS 2 GM/100 ML 2 GM/100 ML BAG IV SCH (19:12)
--- NOTE | 2018-05-27 23:19 | Consultation ---
PULMONARY CRITICAL CARE CONSULT NOTE CONSULTING PHYSICIAN: Dr. Frederick. REASON FOR CONSULTATION: Acute GI bleed and hypotension. CHIEF COMPLAINT AND HISTORY OF PRESENT ILLNESS: The patient is a 43-year-old male with past medical history significant for prior GI bleed according to the records here. He has a history of ulcerative esophagitis, presented to the Emergency Room with complaints of bright red hematemesis, not much of a good historian and suspected actually at the time of evaluation to possibly be intoxicated. He was complaining of some nonspecific generalized body aches. He did mention lower abdominal pain. Admitted to chronic back pain. According to the GI records, he also has a history of significant NSAID use. Evaluation in the ER revealed hemoglobin of 4.4 and likely reactive thrombocytosis with a platelet count of 651,000. He was stabilized. He had episodes of low blood pressures with mean arterial pressures falling as low at the 50, he was actually in the 60s in the field when he was picked up by the EMS services. He was admitted to the Intensive Care Unit where I stopped by to see him. When I stopped by to see him, he had actually completed an EGD. It again showed severe ulcerative esophagitis without bleeding stigmata and possible early necrosis signs of esophagus. He was recommended to keep n.p.o. He denied any chest pains when I saw him. He denied any fevers or chills. He admitted to what is most likely a 10+ pack year tobacco smoking history. He was hungry and very angry about not being able to eat at that point I saw him. This is as much of the history of presentation as I have. PAST MEDICAL HISTORY: Again significant for diabetes, gastroesophageal reflux disease and hypertension. PAST SURGICAL HISTORY: He has had prior endoscopy. Otherwise unknown. MEDICATIONS: He was on at the time I stopped by to see were reviewed. Pertinent medications included the following: He was on Zithromax 500 mg IV daily, Rocephin 2 g IV daily, Protonix drip was going at 8 mg an hour and he was on Carafate 1 gram p.o. q.a.c. and at bedtime. ALLERGIES: No known drug allergies. DIET: Petite gentleman, acute weight loss or gain, history is unknown. FAMILY AND SOCIAL HISTORY: Apparently lives in the community. He has a history of tobacco abuse according to the patient. Alcohol or illicit drug use or abuse history is unknown. Family history otherwise unknown. It is significant for hypertension according to the last admission. REVIEW OF SYSTEMS: At the time I saw him difficult to obtain secondary to his agitation and perhaps delirium. Since he has been here, no growth. He did have some coffee-ground emesis in the Emergency Room as well as some bright red blood per rectum. No seizures. No new onset focal weakness. Review of systems is otherwise unobtainable or as in the body of history above. PHYSICAL EXAMINATION: VITAL SIGNS: At presentation to the Emergency Room, he was afebrile, temperature was 98.8 degrees Fahrenheit with a pulse of 113, respiratory rate of 20, blood pressure 105/58, oxygen sats 97%, inspired oxygen concentration was not recorded. At the time I saw him, he was on room air. O2 sats were in the 90s. GENERAL: He is on unkempt looking middle-aged male. Normocephalic, looks disheveled, talking to me, however, in full sentences without significant respiratory distress. HEAD, EYES, EARS, NOSE AND THROAT: He is anicteric, no conjunctival erythema. Oropharynx is a Mallampati #2. Oropharynx was moist. Grossly, no palpable lymph nodes in the supraclavicular or submandibular lymph node chains. No gross jugular venous distention. LUNGS: Auscultation of both lung johnston was unremarkable. Lungs were actually clear bilaterally. HEART: Sounds 1 and 2 are heard at the time of my evaluation, regular rate and rhythm. No rubs or murmurs. ABDOMEN: Soft, mildly tender, full, not tense. Bowel sounds were positive, but hypoactive. No palpable hepatosplenomegaly. EXTREMITIES: Without overt digital clubbing or cyanosis and no significant pedal edema. The skin was of poor turgor with rashes and very dirty. Had not had any areas of excoriations. No overt cellulitis. No overt rash. NEUROLOGIC: Pupils were equal, round, about 3 mm, reactive to light. Extraocular muscle movements were intact. He moved all 4 extremities spontaneously. LABORATORY DATA: From my review were as follows: Admission white cell count 16,600 with a hemoglobin of 4.4, hematocrit of 14.6, platelet count of 651. INR 1.31. Serum sodium 136, potassium 3.9, chloride 100, bicarbonate 27, BUN 15, creatinine 0.5, glucose 141. Lactic acid level was within normal limits. Liver function tests otherwise within normal limits except for an albumin that was low at 2.5. Urinalysis was negative for nitrites and leukocyte esterase and essentially bland. Plasma alcohol level was undetectable. Hemoglobin is up to 6.9 today; however, this is after transfusion of 5 units of PRBCs. DIAGNOSTIC DATA: Radiographic studies have been reviewed. X-ray was unremarkable at presentation. A CT scan, however, shows bilateral pleural effusions, small. It shows some contents in the stomach and some dilatation of the stomach. No significant mediastinal adenopathy. The esophagus is patent and patulous. The lung windows, some fluid in the major fissure on the left, some areas of really patchy infiltrates as well as compressive atelectasis in the bases. No pneumothorax, no gross bony fracture. ASSESSMENT: 1. Acute gastrointestinal bleed. 2. Acute blood loss anemia. 3. Sepsis syndrome with hypotension. 4. Leukocytosis. 5. History of erosive esophagitis. 6. Mild hyponatremia. 7. Hypoalbuminemia. 8. History of diabetes. 9. History of hypertension. PLAN: We will continue the Protonix drip. He has been seen by the GI team obviously with the findings. It is very important that he does take appropriate medications and avoid NSAIDs use amongst other things. Hopefully, he will adhere to counseling. Blood pressure has been stabilized at this point with volume resuscitation and PRBCs. Massive transfusion protocol will be initiated if he continues to require transfusions. Just based on the possibility and likelihood of there being some alcohol-related issues here, I will also order a magnesium and a phosphorus level and address as necessary. A consideration will be given for the initiation of folic acid and thiamine. For now, I will go ahead and put him on a multivitamin also, all of those once he is cleared for oral intake by the GI team. He will remain n.p.o. for now. A CRP level will be ordered. I will use that along with his clinical progress to deescalate antibiotics. DVT prophylaxis will be in the form of SCDs. Flu and pneumonia vaccination will be addressed per protocol. Thank you very much for the consult, Dr. Frederick. We will follow along and make further recommendations as picture progresses/becomes clearer. He is doing better, has been resuscitated. Blood pressure has been fine and the plan will be to transfer him to the telemetry floor if okay with the other consultants and attending. JOB# [id number] CHEPE/CANDIS MANUEL
[2018-05-27 23:33] LABS: Hematocrit 31.4 % (35.5-45.6); Hemoglobin 9.6 gm/dl (11.8-15.2)
[2018-05-28] MEDS: SODIUM CHLORIDE FLUSH SYRINGE 10 ML IV SCH ×3 (07:28→21:29)
[2018-05-28] MEDS: ZITHROMAX 500 MG in NACL 0.9% 250ML 250 ML IV SCH ×2 (07:31→18:04)
[2018-05-28] MEDS: CARAFATE PO SCH ×4 (10:59→21:29)
[2018-05-28] MEDS: PROTONIX 80 MG in NACL 0.9% 100 ML IV SCH (11:30)
[2018-05-28] MEDS: D5NS 1,000 ML IV SCH (11:59)
--- NOTE | 2018-05-28 13:07 | Gastroenterology Progress Note ---
Assessment and Plan - Patient Problems (1) Erosive esophagitis Current Visit: Yes Status: Acute Plan to address problem: - LA Grade D and consistent with previous endoscopies. - Patient continues to be noncompliant with protonix, and using meth (with subsequent vomiting/aspiration). - OK to transition to floor on protonix/carafate. - Informed patient he must take Rx as prescribed, and avoid all drugs. - Will sign off; please call if needed. Subjective Date of service: 05/28/18 Principal diagnosis: Esophagitis Interval history: The patient is tolerating a regular diet today without N/V/abdominal pain. Denies chest pain. Has had no hematemesis. Objective - Constitutional Vitals: Temp Pulse Resp BP Pulse Ox 98.4 F 111 H 19 112/66 92 05/28/18 12:00 05/28/18 12:10 05/28/18 12:10 05/28/18 12:10 05/28/18 12:10 General appearance: disheveled - Respiratory Respiratory effort: normal Respiratory: bilateral: CTA - Cardiovascular Rhythm: regular Heart Sounds: Present: S1 & S2 - Gastrointestinal General gastrointestinal: Present: soft, non-tender, non-distended - Labs CBC & Chem 7: 05/27/18 22:45 05/26/18 14:31 Labs: Laboratory Results - last 24 hr 05/26/18 05/27/18 05/27/18 14:31 13:00 14:26 Hgb 8.8 L Hct 27.3 L POC Glucose Urine Opiates Screen Presumptive negative Urine Methadone Screen Presumptive negative Ur Barbiturates Screen Presumptive negative Ur Phencyclidine Scrn Presumptive negative Ur Amphetamines Screen Presumptive positive U Benzodiazepines Scrn Presumptive negative Urine Cocaine Screen Presumptive negative U Marijuana (THC) Screen Presumptive negative Drugs of Abuse Note Disclamer Crossmatch See Detail 05/27/18 05/28/18 22:45 12:22 Hgb 9.6 L Hct 31.4 L POC Glucose 142 H Urine Opiates Screen Urine Methadone Screen Ur Barbiturates Screen Ur Phencyclidine Scrn Ur Amphetamines Screen U Benzodiazepines Scrn Urine Cocaine Screen U Marijuana (THC) Screen Drugs of Abuse Note Crossmatch
[2018-05-28 13:53] LABS: Hematocrit 30.3 % (35.5-45.6); Hemoglobin 9.8 gm/dl (11.8-15.2)
--- NOTE | 2018-05-28 14:56 | Progress Note ---
Assessment and Plan Assessment and plan: GI bleed -On Protonix -endoscopy as per GI showed errosive esophagitis -Advance diet to regular -H&H stable Sepsis secondary to bilateral pneumonia - On IV Rocephin and Zithromax Nicotine abuse smoking cessation counseling DVT prophylaxis SCD to BLE while in bed Radiological data: CT chest w contrast: Notable wall thickening of distal esophagus with stranding suggests esophagitis. Fluid collection with small pocket of gas may represent a intramural phlegmon, abscess, or esophageal ulcer/tear. Differential diagnosis does include malignancy. Worse compared to prior. Thickening around the gastroesophageal junction and hyperemia of the stomach may represent gastritis. Moderate hiatal hernia. Probable reactive subcarinal lymph node. Moderate bilateral pleural effusions with adjacent areas of subsegmental atelectasis. Scattered focal infiltrates or subsegmental atelectasis in both lower lobes, right middle lobe, and lingula. . History Interval history: Patient was seen and evaluated this morning, patient said he had episode of dark stool overnight. Hospitalist Physical - Physical exam Narrative exam: Not in cardiopulmonary distress. The patient appeared well nourished and normally developed. Vital signs as documented. Head exam is unremarkable. No scleral icterus . Neck is without jugular venous distension, thyromegaly, or carotid bruits. Lungs are clear to auscultation. Cardiac exam reveals regular rate and Rhythm. First and second heart sounds normal. No murmurs, rubs or gallops. Abdominal exam reveals normal bowel sounds, no masses, no organomegaly and no aortic enlargement. Extremities are nonedematous and both femoral and pedal pulses are normal. 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 No focal weakness. - Constitutional Vitals: Temp Pulse Resp BP Pulse Ox 98.4 F 111 H 19 112/66 92 05/28/18 12:00 05/28/18 12:10 05/28/18 12:10 05/28/18 12:10 05/28/18 12:10 General appearance: Present: no acute distress Results - Labs CBC & Chem 7: 05/28/18 13:31 05/26/18 14:31 Labs: Laboratory Last Values WBC 12.0 K/mm3 (4.5-11.0) H 05/27/18 04:41 RBC 2.83 M/mm3 (3.65-5.03) L 05/27/18 04:41 Hgb 9.8 gm/dl (11.8-15.2) L 05/28/18 13:31 Hct 30.3 % (35.5-45.6) L 05/28/18 13:31 MCV 76 fl (84-94) L 05/27/18 04:41 MCH 24 pg (28-32) L 05/27/18 04:41 MCHC 32 % (32-34) 05/27/18 04:41 RDW 20.8 % (13.2-15.2) H 05/27/18 04:41 Plt Count 523 K/mm3 (140-440) H 05/27/18 04:41 Lymph % (Auto) 13.3 % (13.4-35.0) L 05/27/18 04:41 Stephenson % (Auto) 5.5 % (0.0-7.3) 05/27/18 04:41 Eos % (Auto) 1.2 % (0.0-4.3) 05/27/18 04:41 Baso % (Auto) 0.5 % (0.0-1.8) 05/27/18 04:41 Lymph # 1.6 K/mm3 (1.2-5.4) 05/27/18 04:41 Stephenson # 0.7 K/mm3 (0.0-0.8) 05/27/18 04:41 Eos # 0.1 K/mm3 (0.0-0.4) 05/27/18 04:41 Baso # 0.1 K/mm3 (0.0-0.1) 05/27/18 04:41 Seg Neutrophils % 79.5 % (40.0-70.0) H 05/27/18 04:41 Seg Neutrophils # 9.5 K/mm3 (1.8-7.7) H 05/27/18 04:41 PT 16.8 Sec. (12.2-14.9) H 05/26/18 14:31 INR 1.31 (0.87-1.13) H 05/26/18 14:31 APTT 34.7 Sec. (24.2-36.6) 05/26/18 14:31 Sodium 136 mmol/L (137-145) L 05/26/18 14:31 Potassium 3.9 mmol/L (3.6-5.0) 05/26/18 14:31 Chloride 100.1 mmol/L (98-107) 05/26/18 14:31 Carbon Dioxide 27 mmol/L (22-30) 05/26/18 14:31 Anion Gap 13 mmol/L 05/26/18 14:31 BUN 15 mg/dL (9-20) 05/26/18 14:31 Creatinine 0.5 mg/dL (0.8-1.5) L 05/26/18 14:31 Estimated GFR > 60 ml/min 05/26/18 14:31 BUN/Creatinine Ratio 30 % 05/26/18 14:31 Glucose 141 mg/dL (75-100) H 05/26/18 14:31 POC Glucose 142 (70-105) H 05/28/18 12:22 Lactic Acid 0.70 mmol/L (0.7-2.0) 05/27/18 00:41 Calcium 8.2 mg/dL (8.4-10.2) L 05/26/18 14:31 Total Bilirubin 0.30 mg/dL (0.1-1.2) 05/26/18 14:31 AST 8 units/L (5-40) 05/26/18 14:31 ALT 5 units/L (7-56) L 05/26/18 14:31 Alkaline Phosphatase 49 units/L (35-129) 05/26/18 14:31 Total Protein 5.4 g/dL (6.3-8.2) L 05/26/18 14:31 Albumin 2.5 g/dL (3.9-5) L 05/26/18 14:31 Albumin/Globulin Ratio 0.9 % 05/26/18 14:31 Urine Color Yellow (Yellow) 05/26/18 15:13 Urine Turbidity Clear (Clear) 05/26/18 15:13 Urine pH 7.0 (5.0-7.0) 05/26/18 15:13 Ur Specific Gary 1.019 (1.003-1.030) 05/26/18 15:13 Urine Protein <15 mg/dl mg/dL (Negative) 05/26/18 15:13 Urine Glucose (UA) Negative mg/dL (Negative) 05/26/18 15:13 Urine Ketones Negative mg/dL (Negative) 05/26/18 15:13 Urine Blood Negative (Negative) 05/26/18 15:13 Urine Nitrite Negative (Negative) 05/26/18 15:13 Urine Bilirubin Negative (Negative) 05/26/18 15:13 Urine Urobilinogen 4.0 mg/dL (<2.0) 05/26/18 15:13 Ur Leukocyte Esterase Negative (Negative) 05/26/18 15:13 Urine WBC (Auto) < 1.0 /HPF (0.0-6.0) 05/26/18 15:13 Urine RBC (Auto) 1.0 /HPF (0.0-6.0) 05/26/18 15:13 Urine Opiates Screen Presumptive negative 05/27/18 13:00 Urine Methadone Screen Presumptive negative 05/27/18 13:00 Ur Barbiturates Screen Presumptive negative 05/27/18 13:00 Ur Phencyclidine Scrn Presumptive negative 05/27/18 13:00 Ur Amphetamines Screen Presumptive positive 05/27/18 13:00 U Benzodiazepines Scrn Presumptive negative 05/27/18 13:00 Urine Cocaine Screen Presumptive negative 05/27/18 13:00 U Marijuana (THC) Screen Presumptive negative 05/27/18 13:00 Drugs of Abuse Note Disclamer 05/27/18 13:00 Plasma/Serum Alcohol < 0.01 % (0-0.07) 05/26/18 15:44 Blood Type O POSITIVE 05/26/18 14:31 Antibody Screen Negative 05/26/18 14:31 Crossmatch See Detail 05/26/18 14:31
[2018-05-28] MEDS: THERAGRAN-M Tab PO SCH (15:13)
[2018-05-28] MEDS: ROCEPHIN/NS 2 GM/100 ML 2 GM/100 ML BAG IV SCH (18:03)
[2018-05-28] MEDS: PROTONIX PO SCH (21:29)
[2018-05-29 00:15] LABS: Hematocrit 24.6 % (35.5-45.6); Hemoglobin 8.7 gm/dl (11.8-15.2)
[2018-05-29] MEDS: CARAFATE PO SCH ×4 (07:47→21:25)
--- NOTE | 2018-05-29 07:49 | Progress Note ---
Assessment and Plan Assessment and plan: 43-year-old male with past medical history significant for amphetamine abuse, recurrent GI bleed, medication noncompliance presented to the emergency department complaining of passing dark tarry stool. Patient was anemic. Patient has been admitted previously with the same complaints and has ulcer GI bleed -On Protonix and carafate -endoscopy as per GI showed errosive esophagitis with necrosis -Advance diet to regular -Monitor H&H -GI Consult appreciated Amphetamine abuse - Counselled Sepsis secondary to bilateral pneumonia - On IV Rocephin and Zithromax Nicotine abuse smoking cessation counseling DVT prophylaxis SCD to BLE while in bed Radiological data: CT chest w contrast: Notable wall thickening of distal esophagus with stranding suggests esophagitis. Fluid collection with small pocket of gas may represent a intramural phlegmon, abscess, or esophageal ulcer/tear. Differential diagnosis does include malignancy. Worse compared to prior. Thickening around the gastroesophageal junction and hyperemia of the stomach may represent gastritis. Moderate hiatal hernia. Probable reactive subcarinal lymph node. Moderate bilateral pleural effusions with adjacent areas of subsegmental atelectasis. Scattered focal infiltrates or subsegmental atelectasis in both lower lobes, right middle lobe, and lingula. . History Interval history: Patient was seen and evaluated this morning, patient have BM, brown stool. Hospitalist Physical - Physical exam Narrative exam: Not in cardiopulmonary distress. The patient appeared well nourished and normally developed. Vital signs as documented. Head exam is unremarkable. No scleral icterus . Neck is without jugular venous distension, thyromegaly, or carotid bruits. Lungs are clear to auscultation. Cardiac exam reveals regular rate and Rhythm. First and second heart sounds normal. No murmurs, rubs or gallops. Abdominal exam reveals normal bowel sounds, no masses, no organomegaly and no aortic enlargement. Extremities are nonedematous and both femoral and pedal pulses are normal. [employer]: Alert and oriented 3. No focal weakness. - Constitutional Vitals: Temp Pulse Resp BP Pulse Ox 96.0 F L 89 20 112/74 95 05/29/18 06:05 05/29/18 06:05 05/29/18 06:05 05/29/18 06:05 05/29/18 06:05 General appearance: Present: no acute distress Results - Labs CBC & Chem 7: 05/29/18 08:44 05/29/18 08:44 Labs: Laboratory Last Values WBC 12.0 K/mm3 (4.5-11.0) H 05/27/18 04:41 RBC 2.83 M/mm3 (3.65-5.03) L 05/27/18 04:41 Hgb 8.7 gm/dl (11.8-15.2) L 05/28/18 23:42 Hct 24.6 % (35.5-45.6) L 05/28/18 23:42 MCV 76 fl (84-94) L 05/27/18 04:41 MCH 24 pg (28-32) L 05/27/18 04:41 MCHC 32 % (32-34) 05/27/18 04:41 RDW 20.8 % (13.2-15.2) H 05/27/18 04:41 Plt Count 523 K/mm3 (140-440) H 05/27/18 04:41 Lymph % (Auto) 13.3 % (13.4-35.0) L 05/27/18 04:41 [place] % (Auto) 5.5 % (0.0-7.3) 05/27/18 04:41 Eos % (Auto) 1.2 % (0.0-4.3) 05/27/18 04:41 Baso % (Auto) 0.5 % (0.0-1.8) 05/27/18 04:41 Lymph # 1.6 K/mm3 (1.2-5.4) 05/27/18 04:41 [place] # 0.7 K/mm3 (0.0-0.8) 05/27/18 04:41 Eos # 0.1 K/mm3 (0.0-0.4) 05/27/18 04:41 Baso # 0.1 K/mm3 (0.0-0.1) 05/27/18 04:41 Seg Neutrophils % 79.5 % (40.0-70.0) H 05/27/18 04:41 Seg Neutrophils # 9.5 K/mm3 (1.8-7.7) H 05/27/18 04:41 PT 16.8 Sec. (12.2-14.9) H 05/26/18 14:31 INR 1.31 (0.87-1.13) H 05/26/18 14:31 APTT 34.7 Sec. (24.2-36.6) 05/26/18 14:31 Sodium 136 mmol/L (137-145) L 05/26/18 14:31 Potassium 3.9 mmol/L (3.6-5.0) 05/26/18 14:31 Chloride 100.1 mmol/L (98-107) 05/26/18 14:31 Carbon Dioxide 27 mmol/L (22-30) 05/26/18 14:31 Anion Gap 13 mmol/L 05/26/18 14:31 BUN 15 mg/dL (9-20) 05/26/18 14:31 Creatinine 0.5 mg/dL (0.8-1.5) L 05/26/18 14:31 Estimated GFR > 60 ml/min 05/26/18 14:31 BUN/Creatinine Ratio 30 % 05/26/18 14:31 Glucose 141 mg/dL (75-100) H 05/26/18 14:31 POC Glucose 142 (70-105) H 05/28/18 12:22 Lactic Acid 0.70 mmol/L (0.7-2.0) 05/27/18 00:41 Calcium 8.2 mg/dL (8.4-10.2) L 05/26/18 14:31 Total Bilirubin 0.30 mg/dL (0.1-1.2) 05/26/18 14:31 AST 8 units/L (5-40) 05/26/18 14:31 ALT 5 units/L (7-56) L 05/26/18 14:31 Alkaline Phosphatase 49 units/L (35-129) 05/26/18 14:31 Total Protein 5.4 g/dL (6.3-8.2) L 05/26/18 14:31 Albumin 2.5 g/dL (3.9-5) L 05/26/18 14:31 Albumin/Globulin Ratio 0.9 % 05/26/18 14:31 Urine Color Yellow (Yellow) 05/26/18 15:13 Urine Turbidity Clear (Clear) 05/26/18 15:13 Urine pH 7.0 (5.0-7.0) 05/26/18 15:13 Ur Specific [place] 1.019 (1.003-1.030) 05/26/18 15:13 Urine Protein <15 mg/dl mg/dL (Negative) 05/26/18 15:13 Urine Glucose (UA) Negative mg/dL (Negative) 05/26/18 15:13 Urine Ketones Negative mg/dL (Negative) 05/26/18 15:13 Urine Blood Negative (Negative) 05/26/18 15:13 Urine Nitrite Negative (Negative) 05/26/18 15:13 Urine Bilirubin Negative (Negative) 05/26/18 15:13 Urine Urobilinogen 4.0 mg/dL (<2.0) 05/26/18 15:13 Ur Leukocyte Esterase Negative (Negative) 05/26/18 15:13 Urine WBC (Auto) < 1.0 /HPF (0.0-6.0) 05/26/18 15:13 Urine RBC (Auto) 1.0 /HPF (0.0-6.0) 05/26/18 15:13 Urine Opiates Screen Presumptive negative 05/27/18 13:00 Urine Methadone Screen Presumptive negative 05/27/18 13:00 Ur Barbiturates Screen Presumptive negative 05/27/18 13:00 Ur Phencyclidine Scrn Presumptive negative 05/27/18 13:00 Ur Amphetamines Screen Presumptive positive 05/27/18 13:00 U Benzodiazepines Scrn Presumptive negative 05/27/18 13:00 Urine Cocaine Screen Presumptive negative 05/27/18 13:00 U Marijuana (THC) Screen Presumptive negative 05/27/18 13:00 Drugs of Abuse Note Disclamer 05/27/18 13:00 Plasma/Serum Alcohol < 0.01 % (0-0.07) 05/26/18 15:44 Blood Type O POSITIVE 05/26/18 14:31 Antibody Screen Negative 05/26/18 14:31 Crossmatch See Detail 05/26/18 14:31
[2018-05-29 10:04] LABS: Basophils # (Auto) 0.1 K/mm3 (0.0-0.1); Basophils % (Auto) 0.8 % (0.0-1.8); Eosinophils # (Auto) 0.2 K/mm3 (0.0-0.4); Eosinophils % (Auto) 1.9 % (0.0-4.3); Hemoglobin 8.8 gm/dl (11.8-15.2); Lymphocytes # (Auto) 1.4 K/mm3 (1.2-5.4); Lymphocytes % (Auto) 11.1 % (13.4-35.0); Mean Corpuscular HGB Conc 35 % (32-34); Mean Corpuscular Hemoglobin 27 pg (28-32); Mean Corpuscular Volume 77 fl (84-94); Platelet Count 534 K/mm3 (140-440); Red Blood Count 3.26 M/mm3 (3.65-5.03)
[2018-05-29] MEDS: ZITHROMAX PO SCH (10:04)
[2018-05-29] MEDS: THERAGRAN-M Tab PO SCH (10:04)
[2018-05-29] MEDS: SODIUM CHLORIDE FLUSH SYRINGE 10 ML IV SCH ×2 (10:05→21:26)
[2018-05-29] MEDS: PROTONIX PO SCH ×2 (10:05→21:25)
[2018-05-29 10:10] LABS: Red Cell Distribution Width 21.5 % (13.2-15.2)
[2018-05-29 10:25] LABS: BUN/Creatinine Ratio 25; Blood Urea Nitrogen 10 mg/dL (9-20); Calcium 8.5 mg/dL (8.4-10.2); Hemolysis Index 1
[2018-05-29] MEDS: PERCOCET 5/325 PO PRN ×2 (11:41→18:28)
--- NOTE | 2018-05-29 13:21 | Progress Note ---
Assessment and Plan Acute gastrointestinal bleed. Acute blood loss anemia. Sepsis syndrome with hypotension. Leukocytosis. History of erosive esophagitis. Mild hyponatremia. Hypoalbuminemia. History of diabetes. History of hypertension. - continue PPI therapy - advance diet per GI team - PT/OT - prn analgesia - complete 5-7 days of empric CAP antibiotics - substance and tobacco abuse cessation counselled - GI & VTE prophylaxis - Flu & Pneumovax addressed per protocol ... re-evaluate prn ... 25' Subjective Date of service: 05/29/18 Principal diagnosis: Acute gastrointestinal bleed; ABLA; Sepsis syndrome; Leukocytosis Interval history: Patient is seen today for: Acute gastrointestinal bleed; Acute blood loss anemia ; Sepsis syndrome with hypotension; Leukocytosis; History of erosive esophagitis. Seen and examined at bedside; 24hour events reviewed; nursing and respiratory care staff consulted; no adverse overnight events reported to me; no gross GI bleeding overnight; denies acute chest pains or increased SOB; No N/V/F/C Objective Vital Signs - 12hr 05/29/18 06:05 Temperature 96.0 F L Pulse Rate 89 Respiratory 20 Rate Blood Pressure 112/74 O2 Sat by Pulse 95 Oximetry Constitutional: no acute distress, alert, other (unkempt middle aged CM, normocephalic and atraumatic without increased respiratory effort) Eyes: non-icteric ENT: oropharynx moist, other ([place] 2) Neck: supple, no lymphadenopathy, no JVD, other (no thyromegaly) Effort: normal Ascultation: Bilateral: diminished breath sounds, rhonchi (scant in bases) Percussion: Bilateral: not dull Cardiovascular: regular rate and rhythm, other (No R/M) Gastrointestinal: normoactive bowel sounds, soft, non-tender, non-distended, other (No HSM) Integumentary: other (poor turgor) Extremities: no cyanosis, no edema, pink and warm, pulses normal Neurologic: normal mental status, non-focal exam, pupils equal and round, motor strength normal and Psychiatric: mood appropriate, affect normal CBC and BMP: 05/29/18 08:44 05/29/18 08:44 ABG, PT/INR, D-dimer: PT/INR, D-dimer PT 16.8 Sec. (12.2-14.9) H 05/26/18 14:31 INR 1.31 (0.87-1.13) H 05/26/18 14:31 Abnormal lab findings: Abnormal Labs 05/26/18 05/26/18 05/26/18 14:31 14:31 14:31 WBC 16.6 H RBC 2.09 L Hgb 4.4 L* Hct 14.6 L* MCV 70 L MCH 21 L MCHC 30 L RDW 18.2 H Plt Count 651 H Lymph % (Auto) 9.0 L [place] % (Auto) [place] # 1.0 H Seg Neutrophils % 84.6 H Seg Neutrophils # 14.1 H PT 16.8 H INR 1.31 H Sodium 136 L Creatinine 0.5 L Glucose 141 H POC Glucose Calcium 8.2 L ALT 5 L Total Protein 5.4 L Albumin 2.5 L Crossmatch 05/26/18 05/27/18 05/27/18 14:31 04:41 14:26 WBC 12.0 H RBC 2.83 L Hgb 6.9 L 8.8 L Hct 21.6 L D 27.3 L MCV 76 L MCH 24 L MCHC RDW 20.8 H Plt Count 523 H Lymph % (Auto) 13.3 L [place] % (Auto) [place] # Seg Neutrophils % 79.5 H Seg Neutrophils # 9.5 H PT INR Sodium Creatinine Glucose POC Glucose Calcium ALT Total Protein Albumin Crossmatch See Detail 05/27/18 05/28/18 05/28/18 22:45 12:22 13:31 WBC RBC Hgb 9.6 L 9.8 L Hct 31.4 L 30.3 L MCV MCH MCHC RDW Plt Count Lymph % (Auto) [place] % (Auto) [place] # Seg Neutrophils % Seg Neutrophils # PT INR Sodium Creatinine Glucose POC Glucose 142 H Calcium ALT Total Protein Albumin Crossmatch 05/28/18 05/29/18 05/29/18 23:42 08:44 08:44 WBC 12.3 H RBC 3.26 L Hgb 8.7 L 8.8 L Hct 24.6 L 25.0 L MCV 77 L MCH 27 L MCHC 35 H RDW 21.5 H Plt Count 534 H Lymph % (Auto) 11.1 L [place] % (Auto) 8.0 H Wayne # 1.0 H Seg Neutrophils % 78.2 H Seg Neutrophils # 9.7 H PT INR Sodium Creatinine 0.4 L Glucose 114 H POC Glucose Calcium ALT Total Protein Albumin Crossmatch Allied health notes reviewed: nursing
[2018-05-29] MEDS: ROCEPHIN/NS 2 GM/100 ML 2 GM/100 ML BAG IV SCH (18:20)
[2018-05-30] MEDS: PERCOCET 5/325 PO PRN ×2 (00:38→10:03)
[2018-05-30] MEDS: CARAFATE PO SCH ×2 (08:30→12:59)
[2018-05-30] MEDS: THERAGRAN-M Tab PO SCH (10:03)
[2018-05-30] MEDS: PROTONIX PO SCH (10:03)
[2018-05-30] MEDS: ZITHROMAX PO SCH (10:03)
[2018-05-30] MEDS: SODIUM CHLORIDE FLUSH SYRINGE 10 ML IV SCH (10:04)
--- NOTE | 2018-05-30 12:06 | Discharge Summary ---
Providers - Providers Date of Admission: 05/26/18 16:26 Attending physician: RICHY MONTANO MD 05/26/18 13:58 Consult to Physician [CONS] Stat Comment: Dr. Norma Vickers saw the patient @ 15:10- [facility] Consulting Provider: LORETTA KRAFT Physician Instructions: Reason For Exam: GI BLEED 05/26/18 15:26 Consult to Physician [CONS] Urgent Comment: Dr. Velasco notified @ 15:57- [facility] Consulting Provider: ANATOLY OAKES Physician Instructions: Reason For Exam: gi bleed Primary care physician: HYDRODYNAMICS TEACHER Hospitalization Reason for admission: Upper GI bleed, Erosive cgastritis Condition: Stable Disposition: - TO HOME OR SELFCARE Time spent for discharge: 32 minutes - Discharge Diagnoses (1) Erosive esophagitis Status: Acute (2) GI (gastrointestinal bleed) Status: Acute (3) Pneumonia Status: Acute Qualifiers: Laterality: left Lung location: lower lobe of lung (4) Abnormal CT scan, gastrointestinal tract Status: Acute (5) Amphetamine abuse Status: Acute Core Measure Documentation - Palliative Care Palliative Care/ Comfort Measures: Not Applicable - Core Measures Any of the following diagnoses?: none Exam - Physical Exam Narrative exam: Not in cardiopulmonary distress. The patient appeared well nourished and normally developed. Vital signs as documented. Head exam is unremarkable. No scleral icterus . Neck is without jugular venous distension, thyromegaly, or carotid bruits. Lungs are clear to auscultation. Cardiac exam reveals regular rate and Rhythm. First and second heart sounds normal. No murmurs, rubs or gallops. Abdominal exam reveals normal bowel sounds, no masses, no organomegaly and no aortic enlargement. Extremities are nonedematous and both femoral and pedal pulses are normal. [employer]COH[employer] RU[employer]ER: Alert and oriented 3. No focal weakness. - Constitutional Vitals: Temp Pulse Resp BP Pulse Ox 98.5 F 94 H 20 122/81 97 05/30/18 05:42 05/30/18 05:42 05/30/18 05:42 05/30/18 05:42 05/30/18 05:42 Plan Activity: no restrictions Weight Bearing Status: Full Weight Bearing Diet: advance as tolerated Additional Instructions: F/U at [facility] in 1-2 days Follow up with: PRIMARY MD MARVIN [Primary Care Provider] - 3-5 Days Forms: Accompanied Note Prescriptions: Azithromycin [Zithromax TAB] 500 mg PO QDAY #3 tablet Cyclobenzaprine [Flexeril 10 MG TAB] 10 mg PO BID PRN #20 tablet PRN Reason: Muscle Spasm oxyCODONE /ACETAMINOPHEN [Percocet 5/325 mg] 1 tab PO Q6H PRN #12 tablet PRN Reason: Pain, Moderate (4-6) Pantoprazole [Protonix TAB] 40 mg PO BID #60 tablet Sucralfate [Carafate] 1 gm PO ACHS #30 oral.liqd
[2018-05-30 13:18] VITALS: BP 128/82
== END 2018-05-30 15:47 | disposition home or self-care (01) | DRG 871 ==
LOC: ED 13:29 → CC1 16:26 → 3A 05-28 17:04
PROVIDERS: ADMIT Internal Medicine; ATTEND Internal Medicine
PROC: 30233N1 Transfusion of Nonautologous Red Blood Cells into Peripheral Vein, Percutaneous Approach (ICD-10-PCS; principal; 2018-05-26)
PROC: 0DJ08ZZ Inspection of Upper Intestinal Tract, Via Natural or Artificial Opening Endoscopic (ICD-10-PCS; 2018-05-27)
DX: A41.9 Sepsis, unspecified organism (principal); K22.11 Ulcer of esophagus with bleeding; J18.9 Pneumonia, unspecified organism; F17.213 Nicotine dependence, cigarettes, with withdrawal; D62 Acute posthemorrhagic anemia; E87.1 Hypo-osmolality and hyponatremia; G89.29 Other chronic pain; M54.9 Dorsalgia, unspecified; I10 Essential (primary) hypertension; E88.09 Other disorders of plasma-protein metabolism, not elsewhere classified; E11.9 Type 2 diabetes mellitus without complications; K21.0 Gastro-esophageal reflux disease with esophagitis; F15.10 Other stimulant abuse, uncomplicated; Z82.49 Family history of ischemic heart disease and other diseases of the circulatory system; Z87.11 Personal history of peptic ulcer disease; Z71.6 Tobacco abuse counseling; Z91.19 Patient's noncompliance with other medical treatment and regimen
CPT/HCPCS: 36415; 71045; 71260; 80048; 80053; 80307; 80320; 81001; 82140; 82270; 82962; 85014; 85018; 85025; 85610; 85730; 86850; 86900; 86901; 86920; 93005; 93010; 96361; 96374; 96375; 99291; C9113; G0480; J0171; J0456; J0696; J2405; J2704; J7030; J7040; J7042; J7050; P9016; Q9967

== ENCOUNTER 2018-06-28 03:14 | Emergency (ER) | payer SELFPAY ==
[2018-06-28] MEDS ORDERED: NACL 0.9% 1000 ML 1,000 ML IV ONE ×2 (06:13→11:02)
[2018-06-28 06:44] LABS: Basophils # (Auto) 0.1 K/mm3 (0.0-0.1); Basophils % (Auto) 1.6 % (0.0-1.8); Eosinophils # (Auto) 0.1 K/mm3 (0.0-0.4); Eosinophils % (Auto) 1.9 % (0.0-4.3); Hemoglobin 8.4 gm/dl (11.8-15.2); Lymphocytes # (Auto) 1.9 K/mm3 (1.2-5.4); Lymphocytes % (Auto) 24.5 % (13.4-35.0); Mean Corpuscular HGB Conc 30 % (32-34); Mean Corpuscular Volume 71 fl (84-94); Monocytes # (Auto) 0.5 K/mm3 (0.0-0.8); Monocytes % (Auto) 6.9 % (0.0-7.3); Platelet Count 513 K/mm3 (140-440); Red Blood Count 3.96 M/mm3 (3.65-5.03)
[2018-06-28 06:52] LABS: Mean Corpuscular Hemoglobin 21 pg (28-32); Red Cell Distribution Width 21.5 % (13.2-15.2)
[2018-06-28 06:59] LABS: Partial Thromboplastin Time 26.4 Sec. (24.2-36.6)
[2018-06-28 07:01] LABS: Alanine Aminotransferase 11 units/L (7-56); Albumin 3.6 g/dL (3.9-5); BUN/Creatinine Ratio 16; Blood Urea Nitrogen 8 mg/dL (9-20); Calcium 9.7 mg/dL (8.4-10.2); Hemolysis Index 0; Lipase 11 units/L (13-60)
[2018-06-28 07:03] LABS: INR 1.06 (0.87-1.13)
[2018-06-28] MEDS ORDERED: ZOFRAN IV ONE (11:02)
--- NOTE | 2018-06-28 11:15 | Emergency Department Report ---
ED GI Bleed HPI - General Chief complaint: GI Bleed Stated complaint: WEAK,BLOOD IN STOOL Time Seen by Provider: 06/28/18 10:44 Source: patient, old records reviewed Mode of arrival: Ambulatory Limitations: No Limitations - History of Present Illness Initial comments: 43-year-old male with a past medical history of homelessness, methamphetamine abuse, erosive esophagitis, stomach ulcers and associated GI bleeding requiring transfusions presents to the Hospital complains of vomiting 3 days black stool since yesterday. Patient states he vomits everything he eats with exception of grits. He denies coffee ground emesis or hematemesis. He is not taking any of the medications prescribed after recent admission because he cannot afford it. States he is not currently using methamphetamine. He complains of sharp epigastric pain rated 10/10 in intensity. History of multiple previous visits for nausea, vomiting, and this GI bleed. Most recent admission was May 26 until 05/30/2018. EGD during that admission that showed as follows hemoglobin 4.4 at that time and required blood transfusion. Hemoglobin was 8.8 prior to discharge Impression: 1. Severe ulcerative esophagitis with bleeding stigmata (heme spots and some clots) that was not amenable to endoscopic treatment. No active bleeding 2. Possible early necrosis signs of the esophagus - Related Data Previous Rx's Medication Instructions Recorded Last Taken Type Menthol/Camphor [[place] 1 applicatio TP TID PRN #1 tube 04/17/18 Unknown Rx Ointment] Azithromycin [Zithromax TAB] 500 mg PO QDAY #3 tablet 05/30/18 Unknown Rx Cyclobenzaprine [Flexeril 10 MG 10 mg PO BID PRN #20 tablet 05/30/18 Unknown Rx TAB] oxyCODONE /ACETAMINOPHEN [Percocet 1 tab PO Q6H PRN #12 tablet 05/30/18 Unknown Rx 5/325 mg] Ferrous Sulfate [Feosol 325 MG tab] 325 mg PO QDAY #30 tablet 06/28/18 Unknown Rx Ondansetron [Zofran Odt] 4 mg PO Q8HR PRN #20 tab.rapdis 06/28/18 Unknown Rx Pantoprazole [Protonix TAB] 40 mg PO BID #60 tablet 06/28/18 Unknown Rx Sucralfate [Carafate] 1 gm PO ACHS #30 oral.liqd 06/28/18 Unknown Rx Allergies Allergy/AdvReac Type Severity Reaction Status Date / Time No Known Allergies Allergy Verified 04/19/18 07:21 ED Review of Systems ROS: Stated complaint: WEAK,BLOOD IN STOOL Other details as noted in HPI Comment: All other systems reviewed and negative ED Past Medical Hx - Past Medical History Hx Hypertension: Yes Hx Congestive Heart Failure: No Hx Diabetes: Yes Hx Asthma: No Hx COPD: No Hx Dementia: No Hx HIV: No Additional medical history: Stomach ulcer//blood transfusions - Social History Smoking Status: Current Every Day Smoker Substance Use Type: None - Medications Home Medications: Home Medications Medication Instructions Recorded Confirmed Last Taken Type Menthol/Camphor [[place] 1 applicatio TP TID PRN #1 tube 04/17/18 05/04/18 Unknown Rx Ointment] Azithromycin [Zithromax TAB] 500 mg PO QDAY #3 tablet 05/30/18 Unknown Rx Cyclobenzaprine [Flexeril 10 MG 10 mg PO BID PRN #20 tablet 05/30/18 Unknown Rx TAB] oxyCODONE /ACETAMINOPHEN [Percocet 1 tab PO Q6H PRN #12 tablet 05/30/18 Unknown Rx 5/325 mg] Ferrous Sulfate [Feosol 325 MG tab] 325 mg PO QDAY #30 tablet 06/28/18 Unknown Rx Ondansetron [Zofran Odt] 4 mg PO Q8HR PRN #20 tab.rapdis 06/28/18 Unknown Rx Pantoprazole [Protonix TAB] 40 mg PO BID #60 tablet 06/28/18 Unknown Rx Sucralfate [Carafate] 1 gm PO ACHS #30 oral.liqd 06/28/18 Unknown Rx ED Physical Exam - General Limitations: No Limitations - Other Other exam information: General: No limitations, patient is alert in no acute distress Head exam: Atraumatic, normocephalic Eyes exam: Normal appearance, pupils equal reactive to light, extraocular movements intact ENT: Moist mucous membrane, normal oropharynx Neck exam: Normal inspection, full range of motion, no meningismus nontender Respiratory exam: Clear to auscultation bilateral, no wheezes, rales, crackles Cardiovascular: Normal rate and rhythm, normal heart sounds Abdomen: Soft, nondistended, no grimace with palpation, with normal bowel sounds , no rebound, or guarding Rectal: Dark brown stool guaiac-negative, no gross blood Extremity: Full range of motion normal inspection no deformity Back: Normal Inspection, full range of motion, no tenderness Neurologic: Alert, oriented x3, cranial nerves intact, no motor or sensory deficit Psychiatric: normal affect, normal mood Skin: Warm, dry, intact ED Course Vital Signs 06/28/18 06/28/18 06/28/18 04:46 06:07 10:54 Temperature 98.8 F 98.8 F Pulse Rate 89 89 77 Respiratory 18 16 13 Rate Blood Pressure 114/73 114/73 O2 Sat by Pulse 98 100 Oximetry 06/28/18 06/28/18 06/28/18 11:00 11:15 11:30 Temperature Pulse Rate 66 62 91 H Respiratory 13 14 12 Rate Blood Pressure 101/73 111/65 115/68 O2 Sat by Pulse 100 98 99 Oximetry 06/28/18 06/28/18 06/28/18 11:45 12:00 12:13 Temperature 98.1 F Pulse Rate 64 62 Respiratory 13 13 Rate Blood Pressure 109/74 107/67 O2 Sat by Pulse 100 100 Oximetry 06/28/18 06/28/18 06/28/18 12:15 12:30 12:45 Temperature Pulse Rate 56 L 68 63 Respiratory 12 13 14 Rate Blood Pressure 99/59 111/65 109/68 O2 Sat by Pulse 100 100 100 Oximetry 06/28/18 06/28/18 13:00 14:00 Temperature Pulse Rate 63 56 L Respiratory 13 13 Rate Blood Pressure 104/70 98/66 O2 Sat by Pulse 100 Oximetry - Consultations Consultation #1: 06/28/18 12:36 case d/w Mariela Parker with gi, familiar with pt. informed no active bleeding, stable h/h so will be d/radha. Med compliance will be stressed ED Medical Decision Making - Lab Data Result diagrams: 06/28/18 06:14 06/28/18 06:14 Lab Results 06/28/18 06/28/18 06/28/18 Range/Units 06:14 06:14 06:14 WBC 7.8 (4.5-11.0) K/mm3 RBC 3.96 (3.65-5.03) M/mm3 Hgb 8.4 L (11.8-15.2) gm/dl Hct 28.0 L (35.5-45.6) % MCV 71 L (84-94) fl MCH 21 L (28-32) pg MCHC 30 L (32-34) % RDW 21.5 H (13.2-15.2) % Plt Count 513 H (140-440) K/mm3 Lymph % (Auto) 24.5 (13.4-35.0) % [place] % (Auto) 6.9 (0.0-7.3) % Eos % (Auto) 1.9 (0.0-4.3) % Baso % (Auto) 1.6 (0.0-1.8) % Lymph # 1.9 (1.2-5.4) K/mm3 [place] # 0.5 (0.0-0.8) K/mm3 Eos # 0.1 (0.0-0.4) K/mm3 Baso # 0.1 (0.0-0.1) K/mm3 Seg Neutrophils % 65.1 (40.0-70.0) % Seg Neutrophils # 5.1 (1.8-7.7) K/mm3 PT 14.3 (12.2-14.9) Sec. INR 1.06 (0.87-1.13) APTT 26.4 (24.2-36.6) Sec. Sodium 136 L (137-145) mmol/L Potassium 3.9 (3.6-5.0) mmol/L Chloride 100.8 (98-107) mmol/L Carbon Dioxide 27 (22-30) mmol/L Anion Gap 12 mmol/L BUN 8 L (9-20) mg/dL Creatinine 0.5 L (0.8-1.5) mg/dL Estimated GFR > 60 ml/min BUN/Creatinine Ratio 16 % Glucose 107 H (75-100) mg/dL Calcium 9.7 (8.4-10.2) mg/dL Total Bilirubin 0.40 (0.1-1.2) mg/dL AST 13 (5-40) units/L ALT 11 (7-56) units/L Alkaline Phosphatase 70 (35-129) units/L Total Protein 7.0 (6.3-8.2) g/dL Albumin 3.6 L (3.9-5) g/dL Albumin/Globulin Ratio 1.1 % Lipase 11 L (13-60) units/L Blood Type Antibody Screen 06/28/18 Range/Units 06:14 WBC (4.5-11.0) K/mm3 RBC (3.65-5.03) M/mm3 Hgb (11.8-15.2) gm/dl Hct (35.5-45.6) % MCV (84-94) fl MCH (28-32) pg MCHC (32-34) % RDW (13.2-15.2) % Plt Count (140-440) K/mm3 Lymph % (Auto) (13.4-35.0) % [place] % (Auto) (0.0-7.3) % Eos % (Auto) (0.0-4.3) % Baso % (Auto) (0.0-1.8) % Lymph # (1.2-5.4) K/mm3 [place] # (0.0-0.8) K/mm3 Eos # (0.0-0.4) K/mm3 Baso # (0.0-0.1) K/mm3 Seg Neutrophils % (40.0-70.0) % Seg Neutrophils # (1.8-7.7) K/mm3 PT (12.2-14.9) Sec. INR (0.87-1.13) APTT (24.2-36.6) Sec. Sodium (137-145) mmol/L Potassium (3.6-5.0) mmol/L Chloride (98-107) mmol/L Carbon Dioxide (22-30) mmol/L Anion Gap mmol/L BUN (9-20) mg/dL Creatinine (0.8-1.5) mg/dL Estimated GFR ml/min BUN/Creatinine Ratio % Glucose (75-100) mg/dL Calcium (8.4-10.2) mg/dL Total Bilirubin (0.1-1.2) mg/dL AST (5-40) units/L ALT (7-56) units/L Alkaline Phosphatase (35-129) units/L Total Protein (6.3-8.2) g/dL Albumin (3.9-5) g/dL Albumin/Globulin Ratio % Lipase (13-60) units/L Blood Type O POSITIVE Antibody Screen Negative - EKG Data -: EKG Interpreted by Hi EKG shows normal: sinus rhythm, axis (qrs 62), QRS complexes (qrsd 73), ST-T waves (no stemi) Rate: normal (69) - EKG Data When compared to previous EKG there are: no significant change (05/26/18) - Medical Decision Making "black stool" guaic neg on exam Vomiting No vomiting witnessed in the ED Controlled with Zofran Anemia Chronic anemia with history of deficiency as per previous labs H&H stable compared to recent discharge hemoglobin. Patient does not have any episodes of vomiting, GI bleed, or worsening anemia at this time. Treated in the ED with Zofran, Protonix, Carafate, and 1 L normal saline. Will be discharged home and encouraged to take his meds as prescribed. - Differential Diagnosis GI bleed, anemia, dehydration, noncompliance Critical Care Time: No Critical care attestation.: If time is entered above; I have spent that time in minutes in the direct care of this critically ill patient, excluding procedure time. ED Disposition Clinical Impression: Iron deficiency anemia, Noncompliance with medication regimen, Ulcerative esophagitis, Vomiting Disposition: -01 TO HOME OR SELFCARE Is pt being admited?: No Does the pt Need Aspirin: No Condition: Stable Instructions: Peptic Ulcer (ED), Iron Deficiency Anemia (ED), Acute Nausea and Vomiting (ED) Additional Instructions: Take the medication as prescribed. Follow up with your doctor or doctors provided. Return if symptoms worsen as indicated by your discharge instructions Prescriptions: Ferrous Sulfate [Feosol 325 MG tab] 325 mg PO QDAY #30 tablet Ondansetron [Zofran Odt] 4 mg PO Q8HR PRN #20 tab.rapdis PRN Reason: Agitation / Pain Pantoprazole [Protonix TAB] 40 mg PO BID #60 tablet Sucralfate [Carafate] 1 gm PO ACHS #30 oral.liqd Referrals: SIMRAN WONG MD [Primary Care Provider] - 3-5 Days [facility] [Provider Group] - 3-5 Days LORETTA KRAFT MD [Staff Physician] - 3-5 Days (GI specialist) Time of Disposition: 13:42
[2018-06-28] MEDS ORDERED: CARAFATE PO ONE (12:46)
[2018-06-28 14:21] VITALS: BP 98/66
== END 2018-06-28 14:21 | disposition home or self-care (01) ==
LOC: ED 03:14
DX: K22.10 Ulcer of esophagus without bleeding (principal); D50.9 Iron deficiency anemia, unspecified; E11.9 Type 2 diabetes mellitus without complications; Z91.14 Patient's other noncompliance with medication regimen; F17.200 Nicotine dependence, unspecified, uncomplicated
CPT/HCPCS: 36415; 80053; 82271; 83690; 85025; 85610; 85730; 86850; 86900; 86901; 93005; 93010; 96361; 96374; 99284; J2405; J7030